=== PATIENT | male | born 1930 | race Caucasian/White ===

== ENCOUNTER 2017-01-04 08:03 | Inpatient (IN) ==
[2017-01-04] MEDS ORDERED: VANCOMYCIN INJ 1,000 MG in SODIUM CHLORIDE 0.9% 250 ML IV STA (08:54)
--- NOTE | 2017-01-04 09:09 | DUMMY REPORT TO COMPLETE ORDER ---
See report scanned to EMR
[2017-01-04] MEDS ORDERED: VANCOMYCIN 1,000 MG VIAL ONE (09:10)
[2017-01-04] MEDS ORDERED: ACETAMINOPHEN 325 MG TABLET PO PRN ×2 (09:31)
[2017-01-04] MEDS ORDERED: ONDANSETRON 4 MG/2 ML VIAL IV PRN ×2 (09:31→14:57)
[2017-01-04] MEDS ORDERED: DOCUSATE SODIUM 100 MG CAPSULE PO PRN (09:31)
[2017-01-04] MEDS ORDERED: diphenhydrAMINE CAP 25 MG CAPSULE PO PRN (09:31)
[2017-01-04] MEDS ORDERED: guaiFENesin/DM ER 600-30 MG TABLET PO PRN (09:31)
[2017-01-04] MEDS ORDERED: DIAZEPAM 5 MG TABLET PO PRN (09:34)
[2017-01-04 09:43] LABS: Lymphocytes,Synovial Fluid 8 %; Neutrophils,Synovial Fluid 86 %
--- NOTE | 2017-01-04 09:44 | XRay Report ---
Portable chest Indication: Preoperative study Comparison: October 04, 2015 Findings: Cardiomediastinal contours are stable with sternotomy wires and midline. Chronic stranding densities within the left lung base, fibrosis versus atelectasis. No acute osseous abnormalities. Visualized upper abdomen demonstrates no acute pathology. Impression: No acute cardiopulmonary findings PROCEDURE INTERPRETED AT [facility] DEPARTMENT OF RADIOLOGY Final Report Signed by: Blaine Flores MD
--- NOTE | 2017-01-04 09:46 | Hospitalist History & Physical ---
<Alexia Rosen - Last Filed: 01/04/17 09:41> Assessment and Plan - Time spent with patient Time spent with patient: Greater than 30 minutes (1) CAD status post CABG Status: Acute Assessment and plan: 86-year-old white male with history of hypertension, CAD status post CABG, history of bleeding not on anticoagulation, arthritis, and hypothyroidism admitted by the hospitalist service with a left septic knee joint. Patient will be started on vancomycin at 15 mg/kg, pain and nausea control. Will consult Dr. Groves from orthopedics for evaluation. Will hold patient n.p.o. just in case OR is needed. Patient's home medicines have already been reconciled and restarted. Dr. Becker will see and examine patient and further recommendations to follow. Current Visit: Yes (2) Septic arthritis of knee, left Status: Acute Current Visit: Yes (3) Leukocytosis Status: Acute Current Visit: No (4) Hypertension Status: Acute Current Visit: No (5) Hypothyroidism Status: Acute Current Visit: No History of Present Illness Chief complaint: Left knee pain History of present illness: Mr. Alvarez is a 86 year old white male with history of hypertension, CAD status post CABG, right knee replacement, osteoarthritis, hypothyroidism, history of GI bleed presenting to the ED from [facility] with left knee pain and fever. Patient states when he woke up yesterday his knee was hurting. He is gotten to the point where he cannot walk on it and cannot bend it or straighten it. He states he ran a fever at [facility] this morning. Patient states he has not injured it that he knows and he has never had surgery on that knee. He is afebrile vital signs stable. Labs from [facility] show elevated white blood cell count of 16.4, H&H stable at 14/43, blood cultures are pending, BMP with creatinine of 1.3 and electrolytes normal. C-reactive protein elevated at 13.3, lactic acid 1.2, PT and INR okay, x-ray from [facility] has been loaded in the system but is waiting on radiology to read. Upon exam patient is awake and alert complaining of left knee pain. It is mildly warm to the touch with no cellulitis, edematous and tight to palpation. He does have decreased range of motion. Dr. Saini from the ED has already done a joint aspiration and he states the fluid was turbid. Awaiting on results of this at this time. After discussion with Dr. Saini the ED physician and Dr. Becker the admitting hospitalist, it was agreed patient will be admitted for further evaluation and treatment. Patient's medicines have been reconciled and he is a full code. Home Medications Medication Instructions Recorded Confirmed Type Brimonidine 0.15% Oph Soln 1 drops LEFT EYE BID 09/05/14 01/04/17 History [Alphagan P 0.15% Oph Soln] Esomeprazole Magnesium 40 mg PO DAILY 09/05/14 01/04/17 History [Esomeprazole] Fenofibric Acid (Choline) 45 mg PO DAILY 09/05/14 01/04/17 History [Fenofibric Acid] Fluorometholone 0.1% Oph Susp [FML 1 drop BOTH EYES DAILY 09/05/14 01/04/17 History 0.1% Oph Susp] Levothyroxine Tab [Synthroid Tab] 112 mcg PO DAILY@0700 09/05/14 01/04/17 History NIFEdipine XL TAB [Procardia Xl] 30 mg PO BID 05/16/15 01/04/17 History Aspirin [Ecotrin] 325 mg PO BEDTIME 08/10/15 01/04/17 History Hydrocodone/Acetaminophen 1 each PO BID PRN 08/10/15 01/04/17 History [Hydrocodon-Acetaminophen 5-325] Diazepam Tab [Valium Tab] 5 mg PO BEDTIME PRN 10/04/15 01/04/17 History Ranitidine Tab [Zantac Tab] 150 mg PO BEDTIME 10/04/15 01/04/17 History Allergies Allergy/AdvReac Type Severity Reaction Status Date / Time No Known Allergies Allergy Verified 09/12/14 06:10 Medical,Surgical,& Family Hx - Medical History Cardio: History of: Hypertension, [place] (1999), PVD (dvt) Neurology: History of: TIA No history of: Seizures HEENT: History of: Eye Problem (cornea transplant two times), Dental Problems ( FULL MOUTH EXTRACTION) Endocrine: History of: Thyroid Disorder (GRAVES DISEASE RADIOACTIVE) Rheumatology: History of;: Rheumatological Problems Respiratory: History of: Respiratory Problems (REMOVAL LARYNX TUMOR CANCER) Genitourinary: History of: Prostate Problems (CANCER) Gastrointestinal: History of: Diverticulitis/ Diverticulosis, GERD Musculoskeletal: History of: 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), Degenerative Disk Disease, Musculoskeletal Problems Hematology: History of: 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) - Surgical History Cardiac Surgeries: Sugical HX of: Femoral-Popliteal Bypass Graft (triple bypass 2012), Cardiac Catheterization (STENT CABG DR ROSALES), Cardiac Surgery (CABG VEIN STRIPPING) HEENT Surgeries: Surgical HX of: Eye Surgery (CATARCTS CORNEA TRANSPLNT X2), Tonsilectomy & Adenoidectomy Abdominal Surgeries: Surgical HX of: Appendectomy, Cholecystectomy, Colonoscopy , EGD, Hernia Repair (X5) Reproductive Surgeries: Surgical HX of;: Breast Surgery (right breast biopsy..mass removal), Prostate Surgery (RDIATION 40 RXS) Orthopedic Surgeries: Surgical HX of;: Orthopedic Surgery (LAMINECTOMY KNEE SCOPE X4 SEPTOPLSTY), Total Knee Replacement - Family History Family History: Reports;: Family Cancer (BROTHER), Family Heart Disease (BROTHER ) - Social History Smoking Status: Former smoker Frequency of Alcohol Use: None Type of Drug Use: None Functional capacity: independent ambulation 12 point system: reviewed and no additional remarkable complaints except as stated Exam - Constitutional Vitals: Period Temp Pulse Resp BP Sys/Smith Pulse Ox Last 24 Hr 97.8 F-97.8 F 75-75 18-18 118-118/56-56 94 Exam: Constitutional System: No distress. No tremulousness. Head: Normocephalic, atraumatic. Ears, Nose and Throat System: No evidence of Otitis or Mastoiditis. No epistaxis or discharge Eyes System: Pupils equal, round, and reactive. Extraocular muscles intact. Neck: Supple, without adenopathy, No jugular venous distention. No thyromegaly, neck mass, or prior surgery apparent. Respiratory System: Chest clear to auscultation. Cardiovascular System: Heart with regular rate and rhythm. No murmur. GI System: Abdomen soft, nontender. Normo active bowel sounds present. Musculoskeletal System: limbs with no pedal edema. Full distal pulses. Right knee is warm and edematous, tight and tender to palpation with decreased range of motion Neurological System: No discernable sensory deficit. No aphasia Psychiatric System: Conversation is rational Results - Labs Lab Results: I have reviewed the past 24 hour labs Labs: CBC from [facility] show WBC 16.4, H&H 14/43.8, platelets 350, blood cultures pending. BMP with glucose 103, creatinine 1.3, sodium 139, potassium 3.9, C-reactive protein 13.3, lactic acid 1.2, PT 11.4, INR 1.07 - Diagnostic Findings Procedure: Chest x-ray: pending, X-ray: pending (Left knee) Quality Measures - VTE Contraindication to Pharmacological VTE Prophylaxis: High Risk of Bleeding <Shahzad Becker - Last Filed: 01/04/17 09:54> History of Present Illness History of present illness: Mr. Alvarez is a 86 year old male who is being admitted to the hospital with left knee septic arthritis. I have interviewed and examined the patient and reviewed all available laboratory and radiographic test results. I agree with the assessment and plans of nurse practitioner MARLEE Palumbo. The patient is being admitted to the hospital and begun on intravenous vancomycin. Orthopedics and infectious diseases have been consulted. Exam - Constitutional Vitals: Period Temp Pulse Resp BP Sys/Smith Pulse Ox Last 24 Hr 97.8 F-98.9 F 73-75 18-18 118-144/56-61 94-96
[2017-01-04 09:51] LABS: Cholesterol Crystals None Seen /LPF
--- NOTE | 2017-01-04 10:07 | Emergency Department Note ---
Cyrus Henao Brittany, am scribing for, and in the presence of, Sterling Saini MD 08:27. Parveen Henao Doug C, MD, personally performed the services described in this documentation, ascribed by Diane Bridges in my presence, and it is both accurate and complete . Arrival - Arrival Chief Complaint: Extremity Problem ED Nursing Triage Note: pt woke up yesterday with lt knee pain. +swelling and redness Mode of Arrival: Stretcher Limitations: No Limitations Source: Patient, RN Notes Reviewed Time Seen by Provider: 01/04/17 08:11 - History of Present Illness HPI Narrative: Patient 86-year-old white male presents emergency room for evaluation possible septic arthritis. Patient developed increased pain swelling and tenderness beginning yesterday. States the left knee feels hot to the touch reminiscent of prior septic joint disease head. He was seen at [facility] and was found to have an elevated white blood count. The patient left knee was tapped when he arrived here in the emergency room and he had very turbid fluid. He does not have any nausea, vomiting or any respiratory symptoms. Onset (ago): day(s) (1) Consistency: constant Allergies/Adverse Reactions: Allergies Allergy/AdvReac Type Severity Reaction Status Date / Time No Known Allergies Allergy Verified 09/12/14 06:10 Home Medications: Home Medications Medication Instructions Recorded Confirmed Type Brimonidine 0.15% Oph Soln 1 drops LEFT EYE BID 09/05/14 01/04/17 History [Alphagan P 0.15% Oph Soln] Esomeprazole Magnesium 40 mg PO DAILY 09/05/14 01/04/17 History [Esomeprazole] Fenofibric Acid (Choline) 45 mg PO DAILY 09/05/14 01/04/17 History [Fenofibric Acid] Fluorometholone 0.1% Oph Susp [FML 1 drop BOTH EYES DAILY 09/05/14 01/04/17 History 0.1% Oph Susp] Levothyroxine Tab [Synthroid Tab] 112 mcg PO DAILY@0700 09/05/14 01/04/17 History NIFEdipine XL TAB [Procardia Xl] 30 mg PO BID 05/16/15 01/04/17 History Aspirin [Ecotrin] 325 mg PO BEDTIME 08/10/15 01/04/17 History Hydrocodone/Acetaminophen 1 each PO BID PRN 08/10/15 01/04/17 History [Hydrocodon-Acetaminophen 5-325] Diazepam Tab [Valium Tab] 5 mg PO BEDTIME PRN 10/04/15 01/04/17 History Ranitidine Tab [Zantac Tab] 150 mg PO BEDTIME 10/04/15 01/04/17 History Review of System - Review of System 12 point system: reviewed and no additional remarkable complaints except as stated - Review of System Constitutional: Present: chills, fever Eyes: Absent: vision change Head/Ears/Nose/Throat: Absent: nasal drainage, sore throat Respiratory: Absent: respiratory distress Cardiovascular: Absent: chest pain Gastrointestinal: Present: nausea. Absent: abdominal pain, diarrhea, constipation, melena, hematochezia Genitourinary male: Absent: urgency, dysuria, frequency Musculoskeletal: Present: joint swelling (left knee), leg pain (left knee). Absent: arm pain, back pain, neck pain Skin: Absent: rash Neurological: Absent: headache Psychiatric: Absent: anxiety, depression Hematological/Lymphatic: Absent: easy bleeding, easy bruising Medical,Surgical,& Family Hx - Medical History Cardio: History of: Hypertension, [place] (1999), PVD (dvt) Neurology: History of: TIA No history of: Seizures HEENT: History of: Eye Problem (cornea transplant two times), Dental Problems ( FULL MOUTH EXTRACTION) Endocrine: History of: Thyroid Disorder (GRAVES DISEASE RADIOACTIVE) Rheumatology: History of;: Rheumatological Problems Respiratory: History of: Respiratory Problems (REMOVAL LARYNX TUMOR CANCER) Genitourinary: History of: Prostate Problems (CANCER) Gastrointestinal: History of: Diverticulitis/ Diverticulosis, GERD Musculoskeletal: History of: 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), Degenerative Disk Disease, Musculoskeletal Problems Hematology: History of: 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) - Surgical History Cardiac Surgeries: Sugical HX of: Femoral-Popliteal Bypass Graft (triple bypass 2012), Cardiac Catheterization (STENT CABG DR ROSALES), Cardiac Surgery (CABG VEIN STRIPPING) HEENT Surgeries: Surgical HX of: Eye Surgery (CATARCTS CORNEA TRANSPLNT X2), Tonsilectomy & Adenoidectomy Abdominal Surgeries: Surgical HX of: Appendectomy, Cholecystectomy, Colonoscopy , EGD, Hernia Repair (X5) Reproductive Surgeries: Surgical HX of;: Breast Surgery (right breast biopsy..mass removal), Prostate Surgery (RDIATION 40 RXS) Orthopedic Surgeries: Surgical HX of;: Orthopedic Surgery (LAMINECTOMY KNEE SCOPE X4 SEPTOPLSTY), Total Knee Replacement - Family History Family History: Reports;: Family Cancer (BROTHER), Family Heart Disease (BROTHER ) - Social History Smoking Status: Former smoker Frequency of Alcohol Use: None Type of Drug Use: None Exam Vital Signs: Vital Signs Temperature 98.9 F 01/04/17 09:51 Pulse Rate 73 01/04/17 09:51 Respiratory Rate 18 01/04/17 09:51 Blood Pressure 144/61 01/04/17 09:51 O2 Sat by Pulse Oximetry 96 01/04/17 09:51 - General General appearance: alert, in no apparent distress - Head Head exam: Present: atraumatic, normocephalic, normal inspection - Eye Eye exam: Present: normal appearance, PERRL, EOMI - ENT ENT exam: Present: normal exam, normal oropharynx - Neck Neck exam: Present: normal inspection, full ROM, trachea midline - Chest Chest inspection: Present: normal inspection, symmetric chest wall rise - Respiratory Respiratory exam: Present: normal lung sounds bilaterally. Absent: respiratory distress - Cardiovascular Cardiovascular exam: Present: regular rate, normal rhythm, normal heart sounds. Absent: murmur, rubs, gallop - Abdominal Exam Abdominal exam: Present: soft, normal bowel sounds. Absent: tenderness - Extremities Exam Extremities exam: Present: tenderness (left knee). Absent: normal inspection ( swollen left knee, aspiration of synovial fluid with the consistency of honey) - Back Exam Back exam: Present: normal inspection - Neurological Exam Neurological exam: Present: alert, oriented X3, CN II-XII intact. Absent: motor sensory deficit - Psychiatric Psychiatric exam: Present: normal affect, normal mood - Skin Skin exam: Present: warm, dry Course Course Narrative: Patient's clinical presentation, laboratory and radiograph findings were discussed with Alexia who is covering for the hospitalist service and Dr. Groves who is covering orthopedic service. Patient be admitted to the hospitalist service and Dr. Groves will see in consultation. Procedures - Joint Aspiration/Injection Joint Aspiration/Injection 1 Consent Obtained: verbal consent Time Out Performed: Yes Side of body: left Joint Aspirated: knee Ultrasound Guidance: No Skin Prep: Povidone-Iodine1% Local Anesthetic: lidocaine 1% Amount of anesthesia used (mL): 1 Needle Size Used: 18G Fluid Obtained: turbid Total Fluid Obtained (mls): 60 Patient Tolerated Procedure: well Complications: none Results - Labs Lab Results: I have reviewed the patients labs Labs: Laboratory Tests 01/04/17 08:25 Synovial WBC 38271 Synovial RBC [address] 100 Synovial Neutrophils 86 Synovial Lymphocytes 8 Synovial Monocytes 6 - EKG EKG results: interpreted by ERMD, sinus rhythm (72 bpm), no acute changes - Diagnostic Findings Procedure: Chest x-ray: report reviewed by me (No acute cardiopulmonary findings.) Disposition Clinical Impression: Septic arthritis of knee Case discussed with: patient Disposition: Still a Patient Condition: Stable Time of Disposition: 10:07
[2017-01-04 10:16] LABS: Glucose,Synovial Fluid < 1 MG/DL; Uric Acid,Synovial Fluid 7.6 MG/DL
[2017-01-04] MEDS: BRIMONIDINE 0.15% OPH SOLN 1 DROP/DROPS BOTTLE LEFT EYE SCH ×2 (10:57→20:48)
[2017-01-04] MEDS: FENOFIBRATE 48 MG TABLET PO SCH (10:57)
[2017-01-04] MEDS: FLUOROMETHOLONE 0.1% OPH SUSP 5 ML BOTTLE BOTH EYES SCH (10:58)
[2017-01-04] MEDS: MORPHINE 2 MG/1 ML SYRINGE IV PRN ×2 (10:58→20:52)
[2017-01-04] MEDS: PANTOPRAZOLE 40 MG TABLET PO SCH (10:58)
[2017-01-04] MEDS ORDERED: BACITRACIN 50,000 UNIT VIAL ONE (12:16)
--- NOTE | 2017-01-04 13:09 | Orthopedic Consult Note ---
History of Present Illness Chief complaint: Left knee septic arthritis History of present illness: Mr. Alvarez is a 86 year old male Home Medications Medication Instructions Recorded Confirmed Type Brimonidine 0.15% Oph Soln 1 drops LEFT EYE BID 09/05/14 01/04/17 History [Alphagan P 0.15% Oph Soln] Esomeprazole Magnesium 40 mg PO DAILY 09/05/14 01/04/17 History [Esomeprazole] Fenofibric Acid (Choline) 45 mg PO DAILY 09/05/14 01/04/17 History [Fenofibric Acid] Fluorometholone 0.1% Oph Susp [FML 1 drop BOTH EYES DAILY 09/05/14 01/04/17 History 0.1% Oph Susp] Levothyroxine Tab [Synthroid Tab] 112 mcg PO DAILY@0700 09/05/14 01/04/17 History NIFEdipine XL TAB [Procardia Xl] 30 mg PO BID 05/16/15 01/04/17 History Aspirin [Ecotrin] 325 mg PO BEDTIME 08/10/15 01/04/17 History Hydrocodone/Acetaminophen 1 each PO BID PRN 08/10/15 01/04/17 History [Hydrocodon-Acetaminophen 5-325] Diazepam Tab [Valium Tab] 5 mg PO BEDTIME PRN 10/04/15 01/04/17 History Ranitidine Tab [Zantac Tab] 150 mg PO BEDTIME 10/04/15 01/04/17 History Rosuvastatin [Crestor] 20 mg PO BEDTIME 01/04/17 01/04/17 History Allergies Allergy/AdvReac Type Severity Reaction Status Date / Time No Known Allergies Allergy Verified 09/12/14 06:10 Medical,Surgical,& Family Hx - Medical History Cardio: History of: Hypertension, [place] (2000), PVD (dvt) Neurology: History of: TIA No history of: Seizures HEENT: History of: Eye Problem (cornea transplant two times), Dental Problems ( FULL MOUTH EXTRACTION) Endocrine: History of: Thyroid Disorder (GRAVES DISEASE RADIOACTIVE) Rheumatology: History of;: Rheumatological Problems Respiratory: History of: Respiratory Problems (REMOVAL LARYNX TUMOR CANCER) Genitourinary: History of: Prostate Problems (CANCER) Gastrointestinal: History of: Diverticulitis/ Diverticulosis, GERD, GI Problems (HIATAL HERNIA) Musculoskeletal: History of: 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), Degenerative Disk Disease, Musculoskeletal Problems Hematology: History of: 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) - Surgical History Cardiac Surgeries: Sugical HX of: Femoral-Popliteal Bypass Graft (triple bypass 2013), Cardiac Catheterization (STENT CABG DR ROSALES), Cardiac Surgery (CABG VEIN STRIPPING) HEENT Surgeries: Surgical HX of: Eye Surgery (CATARCTS CORNEA TRANSPLNT X2), Tonsilectomy & Adenoidectomy Abdominal Surgeries: Surgical HX of: Appendectomy, Cholecystectomy, Colonoscopy , EGD, Hernia Repair (X5) Reproductive Surgeries: Surgical HX of;: Breast Surgery (right breast biopsy..mass removal), Prostate Surgery (RDIATION 40 RXS) Orthopedic Surgeries: Surgical HX of;: Orthopedic Surgery (LAMINECTOMY KNEE SCOPE X4 SEPTOPLSTY), Total Knee Replacement - Family History Family History: Reports;: Family Cancer (BROTHER), Family Heart Disease (BROTHER ) - Social History Smoking Status: Former smoker Frequency of Alcohol Use: None Type of Drug Use: None Exam - Constitutional Vitals: Period Temp Pulse Resp BP Sys/Smith Pulse Ox Last 24 Hr 97.0 F-98.9 F 65-75 18-20 118-146/51-73 94-96 - Expanded Left Lower Knee exam: Present: swelling, tenderness (Left knee with increased warmth swelling pain on range of motion. Laboratory studies showed he had cloudy fluid obtained in aspiration of the knee from the emergency room by the emergency room physician. The laboratory results from this showed no crystals he had elevated white blood cell count in the joint fluid. No instability in the knee noted. Pain in the midportions of motion as well as extremes of motion.) Assessment and Plan (1) Septic arthritis of knee Status: Acute Current Visit: Yes
--- NOTE | 2017-01-04 13:16 | Event Note ---
Patient is an 86-year-old male with 2 day history of left knee swelling. He has increased warmth and effusion left knee. Tender to palpation in the left knee. Pain on attempted motion left knee. No instability noted. Moves his toes has sensation to touch has palpable pulses left lower extremity. Aspiration performed in the emergency room by ER physician shows elevated white count in the knee with cloudy fluid. No crystal seen. Impression is septic arthritis left knee. Plan arthroscopic irrigation debridement left knee.
[2017-01-04] MEDS ORDERED: BUPIVACAINE 0.5% /EPI 10 ML VIAL ONE (13:26)
--- NOTE | 2017-01-04 14:29 | Operative Note ---
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 This time the leg was in the arthroscopic leg hardin with a tourniquet placed over cast padding on the proximal thigh. Incision was made with a #11 blade at the inferior lateral aspect of the patella at the lateral aspect of the patellar tendon. Blunt trocar and cannula for the arthroscope was introduced into the knee through the inferolateral portal cloudy fluid was obtained and cultures were obtained from this fluid. At this time the arthroscope was introduced into the knee got increased accumulation was noted there is a large amount of synovitis in the knee cloudy fluid. 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 There is a tear of the medial meniscus with maceration of the lateral meniscus. Medial portal was made at the inferior border of the patella on the lateral border of the patellar tendon. This made with a #11 blade and the blunt trocar introduced into the knee. Probe was placed and confirming the chondromalacia and the meniscus tears. A slight up by up turned biter was placed in a debrided the medial meniscus tear shaver then used to smooth age. Shaver was then used to smooth the edge of the lateral meniscus. We got a crystal accumulation was debrided as well. At this time I appear lateral portal was made. In the knee was irrigated out with 9 L of normal saline 3 L which have a stress noted. Inspection of the pathology report is closed for nylon suture with a single medium Hemovac drain placed superior lateral portal. Sterile occlusive dressing was placed and patient was awakened taken to recovery room. Implants: None Anesthesia: FIDENCIOA Surgeon / Physician: Robin Groves Estimated blood loss: minimal Condition: stable Disposition: PACU Discharge Plan - Discharge Medications No Action Brimonidine 0.15% Oph Soln [Alphagan P 0.15% Oph Soln] 1 drops LEFT EYE BID Esomeprazole Magnesium [Esomeprazole] 40 mg PO DAILY Fenofibric Acid (Choline) [Fenofibric Acid] 45 mg PO DAILY Fluorometholone 0.1% Oph Susp [FML 0.1% Oph Susp] 1 drop BOTH EYES DAILY Levothyroxine Tab [Synthroid Tab] 112 mcg PO DAILY@0700 NIFEdipine XL TAB [Procardia Xl] 30 mg PO BID Aspirin [Ecotrin] 325 mg PO BEDTIME Hydrocodone/Acetaminophen [Hydrocodon-Acetaminophen 5-325] 1 each PO BID PRN PRN Reason: Pain Diazepam Tab [Valium Tab] 5 mg PO BEDTIME PRN PRN Reason: Insomnia Ranitidine Tab [Zantac Tab] 150 mg PO BEDTIME Rosuvastatin [Crestor] 20 mg PO BEDTIME - Follow Up or Referral - Forms/Instructions
--- NOTE | 2017-01-04 14:35 | Anesthesia Post-Op ---
Anesthesia Post OP - Post Ansesthetic Evaluation Patient seen in post op: Yes Resp: within normal limits CV: within normal limits Mental: within normal limits Temp: within normal limits [id number]: within normal limits Nausea and Vomiting: within normal limits Pain: within normal limits
[2017-01-04] MEDS ORDERED: fentaNYL 100 MCG/2 ML VIAL ONE (14:37)
[2017-01-04] MEDS ORDERED: SEVOFLURANE 1 UNIT/15 MINUTE INH ONE (14:38)
[2017-01-04] MEDS ORDERED: ONDANSETRON 4 MG/2 ML VIAL ONE ×2 (14:38→14:52)
[2017-01-04] MEDS ORDERED: GLYCOPYRROLATE 0.4 MG/2 ML VIAL ONE (14:38)
[2017-01-04] MEDS ORDERED: PROPOFOL 200 MG/20 ML VIAL IV ONE (14:38)
[2017-01-04] MEDS ORDERED: ETOMIDATE 20 MG/10 ML VIAL IV ONE (14:38)
[2017-01-04] MEDS ORDERED: ROCURONIUM 100 MG/10 ML VIAL IV ONE (14:39)
[2017-01-04] MEDS ORDERED: NEOSTIGMINE 10 MG/10 ML VIAL ONE (14:39)
[2017-01-04] MEDS ORDERED: HYDROmorphone 2 MG/1 ML VIAL ONE (14:52)
[2017-01-04] MEDS: HYDROmorphone 2 MG/1 ML VIAL IV PRN ×2 (14:55→15:00)
[2017-01-04] MEDS ORDERED: LACTATED RINGERS 1,000 ML IV SCH (15:00)
[2017-01-04] MEDS: SODIUM CHLORIDE 0.9% 1,000 ML IV SCH ×3 (15:10→22:47)
[2017-01-04] MEDS: ASPIRIN EC 325 MG TABLET PO SCH (20:47)
[2017-01-05] MEDS: MORPHINE 2 MG/1 ML SYRINGE IV PRN ×4 (01:49→12:13)
[2017-01-05] MEDS: SODIUM CHLORIDE 0.9% 1,000 ML IV SCH ×3 (04:10→20:56)
[2017-01-05 05:05] LABS: Basophils % 0.2 % (0.0-0.8); Eosinophils # 0.2 10*3/uL (0.0-0.87); Eosinophils % 1.4 % (0.00-10.9); Hematocrit 32.3 VOL% (42.0-52.0); Hemoglobin 10.7 GM/DL (14.0-18.0); Immature Granulocytes % 0.4 %; Immature Granulocytes Absolute 0.05 #; Lymphocytes # 0.5 10*3/uL (1.4-4.0); Lymphocytes % 3.9 % (21.2-54.2); Mean Corpuscular HGB Conc 33.1 GM/DL (32-36); Mean Corpuscular Hemoglobin 29 PG (27-34); Mean Corpuscular Volume 88.7 FL (87-102); Mean Platelet Volume 10.5 FL (9.6-12.0); Monocytes # 0.8 10*3/uL (0.11-0.8); Monocytes % 6.8 % (1.7-12.7); Neutrophils # 10.7 10*3/uL (1.4-7.4); Neutrophils % 87.3 % (38.7-73.9); Platelet Count 226 T/CUMM (130-400); Red Blood Count 3.64 MC/CUMM (3.8-5.5); Red Cell Distribution Width 13.8 % (9.3-17.3); White Blood Count 12.2 T/CUMM (4-12)
[2017-01-05 05:33] LABS: Hypochromasia 1+; Lymphocytes 6 % (20-55); Platelet Estimate Adequate; Segmented Neutrophils 85 % (50-85); Total Cells Counted 100
[2017-01-05 05:38] LABS: Calcium 7.8 MG/DL (8.5-10.1); Magnesium 1.9 MG/DL (1.8-2.4); Osmolality,Calculated 279.4 MOS/KG (273-304)
[2017-01-05 05:39] LABS: Risk Ratio 1.87
[2017-01-05] MEDS: VANCOMYCIN INJ 1,250 MG in SODIUM CHLORIDE 0.9% 250 ML IV SCH (06:30)
[2017-01-05] MEDS: LEVOTHYROXINE 112 MCG TABLET PO SCH (06:34)
--- NOTE | 2017-01-05 08:15 | Orthopedic Progress Note ---
Assessment and Plan (1) Septic arthritis of knee Status: Acute Current Visit: Yes Exam - Constitutional Vitals: Period Temp Pulse Resp BP Sys/Smith Pulse Ox Last 24 Hr 97.0 F-99.6 F 52-84 16-20 102-158/42-79 95-100 Exam: Mr. Alvarez is afebrile today. Drain DC'd from left knee. Complaining of some pain in the left knee. Moves his toes has sensation touch has a palpable dorsalis pedis pulse. Cultures are pending. Continue antibiotics. Plan to DC after 48 hours of IV antibiotic on appropriate p.o. antibiotics will change dressing tomorrow. Results - Labs CBC & BMP: 01/05/17 04:13 01/05/17 04:13 Quality Measures - VTE Contraindication to Pharmacological VTE Prophylaxis: High Risk of Bleeding
[2017-01-05] MEDS: PANTOPRAZOLE 40 MG TABLET PO SCH (08:45)
[2017-01-05] MEDS: BRIMONIDINE 0.15% OPH SOLN 1 DROP/DROPS BOTTLE LEFT EYE SCH ×2 (08:46→20:58)
[2017-01-05] MEDS: FENOFIBRATE 48 MG TABLET PO SCH (08:49)
[2017-01-05] MEDS: FLUOROMETHOLONE 0.1% OPH SUSP 5 ML BOTTLE BOTH EYES SCH (08:49)
--- NOTE | 2017-01-05 10:34 | Hospitalist Progress Note ---
Assessment and Plan (1) Septic arthritis of knee Status: Acute Current Visit: Yes Qualifiers: Septic arthritis organism: due to unspecified organism Hospitalist: Subjective Interval history: Patient is day 1 status post arthroscopy of the left knee for left knee septic arthritis. He is presently being treated with intravenous vancomycin. I have consulted physical therapy and case management for a swing bed placement post discharge. Exam - Constitutional Vitals: Period Temp Pulse Resp BP Sys/Smith Pulse Ox Last 24 Hr 97.2 F-99.6 F 52-84 16-20 102-158/42-79 95-100 General appearance: no acute distress - Head Head exam: Present: normal inspection - Neck Neck exam: Present: normal inspection - Respiratory Respiratory exam: Present: clear to auscultation bilaterally - Cardiovascular Cardiovascular exam: Present: regular rate and rhythm - GI/Abdominal GI/Abdominal exam: Present: normal bowel sounds, soft, other (Nontender with no palpable masses or hepatosplenomegaly.) - Extremities Exam Extremities exam: Present: other (Bandage of the left knee.) - Skin Skin exam: Present: normal color, warm, intact Results - Labs CBC & BMP: 01/05/17 04:13 01/05/17 04:13 Quality Measures - VTE Contraindication to Pharmacological VTE Prophylaxis: High Risk of Bleeding
[2017-01-05] MEDS ORDERED: TUBERCULIN SKIN TEST 0.1 ML SYRINGE INTRADERM ONE (14:47)
--- NOTE | 2017-01-05 14:49 | Case Mgmt Physician Query Form ---
TB Signs and Symptoms Screening ([place]) INSTRUCTIONS: To be completed annually on residents/staff with a significant Tuberculin Skin Test (TST) upon admission/hire or a prior significant TST. To be completed on all staff at hire. Please respond to each listed symptom with an (X) in either the "YES" or "NO" box. Do you currently have any of the following symptoms: YES NO ( ) ( x) A cough If yes, is it: ( ) Productive ( ) Non- productive ( ) ( x) Hemoptysis (spitting up blood) ( ) (x ) Chest pains ( ) (x ) Weight Loss ( ) (x ) Fever ( ) (x ) Night Sweats ( ) (x ) Weakness ( ) (x ) Loss of Appetite ( ) (x ) Difficulty Breathing If you answered YES" to any of the above questions, how long have symptoms been present? Comments: If you have any questions, please contact me. Thank you, Mariela Vuong RN, Office : [phone] Email : [email or web address]
[2017-01-05] MEDS: ASPIRIN EC 325 MG TABLET PO SCH (20:56)
[2017-01-06] MEDS: SODIUM CHLORIDE 0.9% 1,000 ML IV SCH ×2 (04:44→11:59)
[2017-01-06] MEDS: VANCOMYCIN INJ 1,250 MG in SODIUM CHLORIDE 0.9% 250 ML IV SCH (06:12)
[2017-01-06] MEDS: MORPHINE 2 MG/1 ML SYRINGE IV PRN (06:12)
[2017-01-06] MEDS: LEVOTHYROXINE 112 MCG TABLET PO SCH (06:13)
[2017-01-06] MEDS: PANTOPRAZOLE 40 MG TABLET PO SCH (08:24)
[2017-01-06] MEDS: FENOFIBRATE 48 MG TABLET PO SCH (08:24)
[2017-01-06] MEDS: FLUOROMETHOLONE 0.1% OPH SUSP 5 ML BOTTLE BOTH EYES SCH (08:27)
[2017-01-06] MEDS: BRIMONIDINE 0.15% OPH SOLN 1 DROP/DROPS BOTTLE LEFT EYE SCH (08:28)
--- NOTE | 2017-01-06 09:20 | Discharge Summary ---
Hospital Course - Hospital Course Hospital Course: History of present illness: Mr. Alvarez is a 86 year old white male with history of hypertension, CAD status post CABG, right knee replacement, osteoarthritis, hypothyroidism, history of GI bleed presenting to the ED from [facility] with left knee pain and fever. Patient states when he woke up yesterday his knee was hurting. He is gotten to the point where he cannot walk on it and cannot bend it or straighten it. He states he ran a fever at [facility] this morning. Patient states he has not injured it that he knows and he has never had surgery on that knee. He is afebrile vital signs stable. Labs from [facility] show elevated white blood cell count of 16.4, H&H stable at 14/43, blood cultures are pending, BMP with creatinine of 1.3 and electrolytes normal. C-reactive protein elevated at 13.3, lactic acid 1.2, PT and INR okay, x-ray from [facility] has been loaded in the system but is waiting on radiology to read. Upon exam patient is awake and alert complaining of left knee pain. It is mildly warm to the touch with no cellulitis, edematous and tight to palpation. He does have decreased range of motion. Dr. Saini from the ED has already done a joint aspiration and he states the fluid was turbid. Patient was seen in consultation by Dr. Robin Groves of orthopedic surgery. Dr. Groves performed arthroscopy of the left knee with evacuation of purulent drainage. Patient was treated with intravenous vancomycin. He was seen in consultation by physical therapy who was able to ambulate him prior to discharge. At the time of his discharge she was stable with no problems. Diagnosis - Discharge Diagnosis (1) Septic arthritis of knee Status: Acute Discharge Plan - Discharge Data Disposition: Disch To Home/Self Care Condition at Discharge: Stable Discharge Diet: advance to your usual diet Activity: resume usual activities as tolerated - Discharge Medications New Clindamycin Cap [Cleocin Cap] 300 mg PO Q8HR #21 capsule Continue Brimonidine 0.15% Oph Soln [Alphagan P 0.15% Oph Soln] 1 drops LEFT EYE BID Esomeprazole Magnesium [Esomeprazole] 40 mg PO DAILY Fenofibric Acid (Choline) [Fenofibric Acid] 45 mg PO DAILY Fluorometholone 0.1% Oph Susp [FML 0.1% Oph Susp] 1 drop BOTH EYES DAILY Levothyroxine Tab [Synthroid Tab] 112 mcg PO DAILY@0700 NIFEdipine XL TAB [Procardia Xl] 30 mg PO BID Aspirin [Ecotrin] 325 mg PO BEDTIME Hydrocodone/Acetaminophen [Hydrocodon-Acetaminophen 5-325] 1 each PO BID PRN PRN Reason: Pain Diazepam Tab [Valium Tab] 5 mg PO BEDTIME PRN PRN Reason: Insomnia Ranitidine Tab [Zantac Tab] 150 mg PO BEDTIME Rosuvastatin [Crestor] 20 mg PO BEDTIME prednisoLONE AC 1% OPH SUSP [Pred Forte] 1 drop LEFT EYE QID - Follow Up or Referral - Forms/Instructions Exam - Constitutional Vitals: Period Temp Pulse Resp BP Sys/Smith Pulse Ox Last 24 Hr 97.3 F-101.7 F 62-92 16-20 95-143/52-75 91-97 Discharge Results Procedures and tests throughout hospitalization: Pending Orders 01/04/17 10:54 Blood Culture Stat Labs on day of discharge: Preliminary micro results at discharge 01/04/17 10:54 Blood Culture - Preliminary Blood No growth at 1 day 01/04/17 10:54 Blood Culture - Preliminary Blood No growth at 1 day DS: Provider Date of admission: 01/04/17 09:07 Primary care physician: . No PCP Attending physician on admission: Shahzad Becker Consults: 01/04/17 09:31 Consult to Physician [CONS] Routine Comment: septic left knee Consulting Provider: Robin Groves When should Consulting Provider be notified: Now Consult Notification Comment: Alexia Rosen spoke with Dr. Groves, pt scheduled for surgery 01/05/17 10:30 Consult to Occupational Therapy [CONS] Routine Reason for Occupational Therapy: Evaluate and Treat Consult Comment: For Swing Bed Placement Consult to Physical Therapy [CONS] Routine Reason for Physical Therapy: Evaluate and Treat Consult Comment: For Swing Bed Placement 01/05/17 10:34 Consult to Case Mgmt/Social Srvs [CONS] Routine Reason for Case Mgmt/Social Srvs: Swingbed/SNF/Correction Consult to Physical Therapy [CONS] Routine Reason for Physical Therapy: Evaluate and Treat Discharging clinician: Shahzad Becker
--- NOTE | 2017-01-06 11:17 | Pathology Report from [facility] ---
[facility] – [place] ACCESSION # : [id number] PATIENT NAME : Mercedes Alvarez ORDERING DR : Robin Groves MD CLINICAL HX: LT septic knee POST-OP DX: Same SPECIMEN INFO: LT knee tissue GROSS DESCRIPTION: The specimen is received in formalin labeled with the patients name and consists of an aggregate of pink-white cartilaginous soft tissue measuring 3.9 x 4.0 cm. Envelope Sealing Machine Operator tissue submitted in one cassette. DIAGNOSIS FOR Mercedes ALVAREZ: Hyalinized fibrocartilage and synovium with areas of marked acute and chronic inflammation c/w septic joint. COLLECTED DATE: 01/05/2017 [facility] – [place], [place] REPORT DATE: 01/06/2017 ELECTRONICALLY SIGNED BY: Stevie Flores M.D. 01/06/2017 - 9:39:54 [facility] SYSTEMMilan
[2017-01-06 16:38] VITALS: BP 149/67
== END 2017-01-06 17:45 | disposition home health service (06) | DRG 489 ==
LOC: N.EDINP 09:07 → N.2E 10:19 → N.3E 15:10

== ENCOUNTER 2018-05-28 09:31 | Inpatient (IN) ==
[2018-05-28] MEDS ORDERED: ENOXAPARIN 80 MG/0.8 ML SYRINGE SUBCUT STA (10:18)
[2018-05-28] MEDS ORDERED: NITROGLYCERIN 2% OINT 1 INCH/GM PACK TOP STA (10:18)
[2018-05-28 10:20] LABS: Basophils % 0.3 % (0.0-0.8); Eosinophils # 0.5 10*3/uL (0.0-0.87); Eosinophils % 5.2 % (0.00-10.9); Hematocrit 38.5 VOL% (42.0-52.0); Hemoglobin 12.1 GM/DL (14.0-18.0); Immature Granulocytes % 0.3 %; Immature Granulocytes Absolute 0.03 #; Lymphocytes % 11.1 % (21.2-54.2); Mean Corpuscular HGB Conc 31.4 GM/DL (32-36); Mean Corpuscular Hemoglobin 29 PG (27-34); Mean Platelet Volume 10.1 FL (9.6-12.0); Monocytes # 0.9 10*3/uL (0.11-0.8); Monocytes % 9.8 % (1.7-12.7); Neutrophils # 6.4 10*3/uL (1.4-7.4); Neutrophils % 73.3 % (38.7-73.9); Platelet Count 303 T/CUMM (130-400); Red Blood Count 4.23 MC/CUMM (3.8-5.5); White Blood Count 8.7 T/CUMM (4-12)
[2018-05-28 10:25] LABS: INR 1.1; PT Patient Result 11.8 SECS
[2018-05-28 10:29] LABS: Calcium 8.6 MG/DL (8.5-10.1); Osmolality,Calculated 282.3 MOS/KG (273-304); Potassium 3.9 MMOL/L (3.5-5.1)
[2018-05-28] MEDS ORDERED: ACETAMINOPHEN 325 MG TABLET PO PRN (11:49)
[2018-05-28] MEDS ORDERED: BISACODYL 5 MG TABLET PO PRN (11:49)
[2018-05-28] MEDS ORDERED: MAGNESIUM SULF RIDER 4 GM in PREMIX 1 EACH IV PRN (11:49)
[2018-05-28] MEDS ORDERED: MAGNESIUM SULF RIDER 2 GM in PREMIX 1 EACH IV PRN (11:49)
[2018-05-28] MEDS ORDERED: DOCUSATE SODIUM 100 MG CAPSULE PO PRN (11:49)
[2018-05-28] MEDS ORDERED: ZALEPLON 5 MG CAPSULE PO PRN (11:49)
[2018-05-28] MEDS ORDERED: POTASSIUM CHLORIDE 20 MEQ TABLET PO PRN (11:49)
[2018-05-28] MEDS ORDERED: guaiFENesin/DM ER 600-30 MG TABLET PO PRN (11:49)
[2018-05-28] MEDS ORDERED: ENOXAPARIN 40 MG/0.4 ML SYRINGE SUBCUT SCH (12:00)
[2018-05-28] MEDS ORDERED: ISOSORBIDE MONONITRATE 30 MG TABLET PO SCH (12:00)
[2018-05-28] MEDS ORDERED: CLOPIDOGREL 300 MG TABLET PO STA (12:07)
[2018-05-28] MEDS ORDERED: amLODIPine 5 MG TABLET PO STA (12:09)
[2018-05-28] MEDS ORDERED: hydrALAZINE 20 MG/1 ML VIAL IV PRN (12:19)
[2018-05-28] MEDS ORDERED: CLOPIDOGREL 75 MG TABLET PO SCH (12:30)
[2018-05-28] MEDS ORDERED: hydrALAZINE 20 MG/1 ML VIAL IV ONE (13:41)
[2018-05-28] MEDS ORDERED: hydrALAZINE 20 MG/1 ML VIAL IM ONE (13:41)
[2018-05-28] MEDS: MORPHINE 4 MG/1 ML VIAL IV PRN (16:56)
[2018-05-28] MEDS: ONDANSETRON 4 MG/2 ML VIAL IV PRN ×2 (17:12→20:55)
[2018-05-28] MEDS: oxyCODONE/ACETAMINOPHEN 5-325 MG TABLET PO PRN (17:35)
[2018-05-28] MEDS ORDERED: amLODIPine 5 MG TABLET PO SCH (18:00)
[2018-05-28] MEDS: HYDROmorphone 2 MG/1 ML VIAL IV PRN (20:55)
[2018-05-28] MEDS: BRIMONIDINE 0.15% OPH SOLN 1 DROP/DROPS BOTTLE LEFT EYE SCH (20:57)
[2018-05-28] MEDS: CARVEDILOL 3.125 MG TABLET PO SCH (20:58)
[2018-05-28] MEDS: ROSUVASTATIN 20 MG TABLET PO SCH (20:58)
[2018-05-28] MEDS ORDERED: PANTOPRAZOLE 40 MG TABLET PO SCH (21:00)
[2018-05-28] MEDS ORDERED: ASPIRIN EC 325 MG TABLET PO SCH (21:00)
[2018-05-28] MEDS: prednisoLONE ACETATE 1% OPH SUSP 5 ML BOTTLE LEFT EYE SCH (21:03)
[2018-05-29 04:23] LABS: Basophils % 0.5 % (0.0-0.8); Eosinophils # 0.4 10*3/uL (0.0-0.87); Eosinophils % 4.3 % (0.00-10.9); Hematocrit 35.6 VOL% (42.0-52.0); Hemoglobin 11.1 GM/DL (14.0-18.0); Immature Granulocytes % 0.5 %; Immature Granulocytes Absolute 0.04 #; Lymphocytes # 1.1 10*3/uL (1.4-4.0); Lymphocytes % 12.8 % (21.2-54.2); Mean Corpuscular HGB Conc 31.2 GM/DL (32-36); Mean Corpuscular Hemoglobin 29 PG (27-34); Mean Platelet Volume 10.4 FL (9.6-12.0); Monocytes # 0.9 10*3/uL (0.11-0.8); Monocytes % 10.9 % (1.7-12.7); Platelet Count 284 T/CUMM (130-400); Red Blood Count 3.87 MC/CUMM (3.8-5.5); Red Cell Distribution Width 14.2 % (9.3-17.3); White Blood Count 8.5 T/CUMM (4-12)
[2018-05-29 04:58] LABS: Calcium 8.6 MG/DL (8.5-10.1); Osmolality,Calculated 276.7 MOS/KG (273-304); Potassium 4.2 MMOL/L (3.5-5.1); Risk Ratio 1.68; VLDL CHOLESTEROL 14.6 MG/DL
[2018-05-29] MEDS: LEVOTHYROXINE 88 MCG TABLET PO SCH (06:20)
[2018-05-29] MEDS: ONDANSETRON 4 MG/2 ML VIAL IV PRN (07:42)
[2018-05-29] MEDS: HYDROmorphone 2 MG/1 ML VIAL IV PRN ×2 (07:48→17:59)
[2018-05-29] MEDS ORDERED: amLODIPine 2.5 MG TABLET PO SCH (09:00)
[2018-05-29] MEDS: BRIMONIDINE 0.15% OPH SOLN 1 DROP/DROPS BOTTLE LEFT EYE SCH ×2 (09:16→21:54)
[2018-05-29] MEDS: amLODIPine 5 MG TABLET PO SCH (09:17)
[2018-05-29] MEDS: ASPIRIN EC 81 MG TABLET PO SCH (09:18)
[2018-05-29] MEDS: prednisoLONE ACETATE 1% OPH SUSP 5 ML BOTTLE LEFT EYE SCH ×2 (09:18→21:55)
[2018-05-29] MEDS: CARVEDILOL 3.125 MG TABLET PO SCH ×2 (09:18→21:28)
[2018-05-29] MEDS: ISOSORBIDE MONONITRATE 30 MG TABLET PO SCH (09:18)
[2018-05-29] MEDS: FENOFIBRATE 48 MG TABLET PO SCH (09:18)
[2018-05-29] MEDS ORDERED: SODIUM CHLORIDE 0.9% 250 ML IV ONE (11:16)
[2018-05-29] MEDS: SODIUM CHLORIDE 0.9% 1,000 ML IV SCH ×3 (11:49→21:55)
[2018-05-29] MEDS: oxyCODONE/ACETAMINOPHEN 5-325 MG TABLET PO PRN (14:42)
[2018-05-29] MEDS: ALUM/MAG/SIMETH/LIDO VISC 1:1 30 ML BOTTLE PO PRN (15:16)
[2018-05-29] MEDS: ALPRAZolam 0.25 MG TABLET PO PRN (18:29)
[2018-05-29] MEDS: PANTOPRAZOLE 40 MG TABLET PO SCH (21:55)
[2018-05-29] MEDS: ROSUVASTATIN 20 MG TABLET PO SCH (21:55)
[2018-05-30 04:38] LABS: Basophils % 0.2 % (0.0-0.8); Eosinophils # 0.5 10*3/uL (0.0-0.87); Eosinophils % 5.9 % (0.00-10.9); Hematocrit 34.7 VOL% (42.0-52.0); Immature Granulocytes % 0.3 %; Immature Granulocytes Absolute 0.03 #; Lymphocytes # 0.8 10*3/uL (1.4-4.0); Lymphocytes % 8.3 % (21.2-54.2); Mean Corpuscular HGB Conc 31.7 GM/DL (32-36); Mean Corpuscular Hemoglobin 29 PG (27-34); Mean Corpuscular Volume 90.8 FL (87-102); Mean Platelet Volume 10.5 FL (9.6-12.0); Monocytes # 0.8 10*3/uL (0.11-0.8); Monocytes % 8.3 % (1.7-12.7); Platelet Count 251 T/CUMM (130-400); Red Blood Count 3.82 MC/CUMM (3.8-5.5); Red Cell Distribution Width 14.1 % (9.3-17.3); White Blood Count 9.1 T/CUMM (4-12)
[2018-05-30 05:06] LABS: Calcium 8.5 MG/DL (8.5-10.1); Osmolality,Calculated 280.5 MOS/KG (273-304); Potassium 4.1 MMOL/L (3.5-5.1)
[2018-05-30] MEDS: HYDROmorphone 2 MG/1 ML VIAL IV PRN ×2 (05:57→20:15)
[2018-05-30] MEDS: ONDANSETRON 4 MG/2 ML VIAL IV PRN ×2 (05:57→20:58)
[2018-05-30] MEDS: LEVOTHYROXINE 88 MCG TABLET PO SCH (05:59)
[2018-05-30] MEDS: SODIUM CHLORIDE 0.9% 1,000 ML IV SCH ×2 (06:01→09:15)
[2018-05-30] MEDS: PANTOPRAZOLE 40 MG TABLET PO SCH ×2 (10:04→20:58)
[2018-05-30] MEDS: ASPIRIN EC 81 MG TABLET PO SCH (10:04)
[2018-05-30] MEDS: CARVEDILOL 3.125 MG TABLET PO SCH ×2 (10:04→22:22)
[2018-05-30] MEDS: FENOFIBRATE 48 MG TABLET PO SCH (10:04)
[2018-05-30] MEDS: amLODIPine 5 MG TABLET PO SCH (10:05)
[2018-05-30] MEDS: prednisoLONE ACETATE 1% OPH SUSP 5 ML BOTTLE LEFT EYE SCH ×2 (10:05→20:58)
[2018-05-30] MEDS: BRIMONIDINE 0.15% OPH SOLN 1 DROP/DROPS BOTTLE LEFT EYE SCH ×2 (10:05→20:58)
[2018-05-30] MEDS: ISOSORBIDE MONONITRATE 30 MG TABLET PO SCH (10:05)
[2018-05-30] MEDS: fentaNYL 12 MCG/HR PATCH TRANSDERM SCH (20:15)
[2018-05-30] MEDS: ROSUVASTATIN 20 MG TABLET PO SCH (20:58)
[2018-05-30] MEDS: ALPRAZolam 0.25 MG TABLET PO PRN (20:59)
[2018-05-30] MEDS: oxyCODONE/ACETAMINOPHEN 5-325 MG TABLET PO PRN (22:37)
[2018-05-31 05:07] LABS: Basophils % 0.3 % (0.0-0.8); Eosinophils # 0.6 10*3/uL (0.0-0.87); Eosinophils % 8.5 % (0.00-10.9); Hemoglobin 10.9 GM/DL (14.0-18.0); Immature Granulocytes % 0.6 %; Immature Granulocytes Absolute 0.04 #; Lymphocytes # 0.9 10*3/uL (1.4-4.0); Lymphocytes % 12.9 % (21.2-54.2); Mean Corpuscular HGB Conc 32.1 GM/DL (32-36); Mean Corpuscular Hemoglobin 29 PG (27-34); Mean Corpuscular Volume 90.2 FL (87-102); Mean Platelet Volume 10.4 FL (9.6-12.0); Monocytes # 0.6 10*3/uL (0.11-0.8); Monocytes % 8.5 % (1.7-12.7); Neutrophils # 4.9 10*3/uL (1.4-7.4); Neutrophils % 69.2 % (38.7-73.9); Platelet Count 244 T/CUMM (130-400); Red Blood Count 3.77 MC/CUMM (3.8-5.5); White Blood Count 7.1 T/CUMM (4-12)
[2018-05-31 05:31] LABS: Calcium 8.4 MG/DL (8.5-10.1); Osmolality,Calculated 281.3 MOS/KG (273-304); Potassium 3.9 MMOL/L (3.5-5.1)
[2018-05-31] MEDS: HYDROmorphone 2 MG/1 ML VIAL IV PRN ×2 (05:35→14:39)
[2018-05-31] MEDS: ONDANSETRON 4 MG/2 ML VIAL IV PRN ×2 (05:35→22:18)
[2018-05-31] MEDS: LEVOTHYROXINE 88 MCG TABLET PO SCH (06:21)
[2018-05-31] MEDS: MORPHINE 4 MG/1 ML VIAL IV PRN ×3 (06:27→20:23)
[2018-05-31] MEDS: CARVEDILOL 6.25 MG TABLET PO SCH ×2 (09:48→20:22)
[2018-05-31] MEDS: ASPIRIN EC 81 MG TABLET PO SCH (09:48)
[2018-05-31] MEDS: amLODIPine 5 MG TABLET PO SCH (09:48)
[2018-05-31] MEDS: BRIMONIDINE 0.15% OPH SOLN 1 DROP/DROPS BOTTLE LEFT EYE SCH ×2 (09:49→20:34)
[2018-05-31] MEDS: FENOFIBRATE 48 MG TABLET PO SCH (09:49)
[2018-05-31] MEDS: PANTOPRAZOLE 40 MG TABLET PO SCH ×2 (09:49→20:22)
[2018-05-31] MEDS: ISOSORBIDE MONONITRATE 30 MG TABLET PO SCH (09:49)
[2018-05-31] MEDS: prednisoLONE ACETATE 1% OPH SUSP 5 ML BOTTLE LEFT EYE SCH ×2 (09:49→20:35)
[2018-05-31] MEDS ORDERED: HYDROmorphone 2 MG/1 ML VIAL IV ONE (15:53)
[2018-05-31] MEDS ORDERED: FUROSEMIDE 40 MG/4 ML VIAL IV ONE (16:58)
[2018-05-31] MEDS: ROSUVASTATIN 20 MG TABLET PO SCH (20:22)
[2018-05-31] MEDS: ALUM/MAG/SIMETH/LIDO VISC 1:1 30 ML BOTTLE PO PRN (22:21)
[2018-05-31] MEDS: ALPRAZolam 0.25 MG TABLET PO PRN (22:22)
[2018-06-01] MEDS: MORPHINE 4 MG/1 ML VIAL IV PRN ×3 (03:02→15:17)
[2018-06-01 04:59] LABS: Basophils % 0.2 % (0.0-0.8); Eosinophils # 0.2 10*3/uL (0.0-0.87); Eosinophils % 1.7 % (0.00-10.9); Hematocrit 33.8 VOL% (42.0-52.0); Hemoglobin 10.7 GM/DL (14.0-18.0); Immature Granulocytes % 0.4 %; Immature Granulocytes Absolute 0.05 #; Lymphocytes # 0.7 10*3/uL (1.4-4.0); Mean Corpuscular HGB Conc 31.7 GM/DL (32-36); Mean Corpuscular Hemoglobin 29 PG (27-34); Mean Corpuscular Volume 91.4 FL (87-102); Mean Platelet Volume 10.8 FL (9.6-12.0); Monocytes % 8.3 % (1.7-12.7); Neutrophils # 10.4 10*3/uL (1.4-7.4); Neutrophils % 83.4 % (38.7-73.9); Platelet Count 220 T/CUMM (130-400); Red Cell Distribution Width 14.2 % (9.3-17.3); White Blood Count 12.4 T/CUMM (4-12)
[2018-06-01 05:23] LABS: Calcium 8.4 MG/DL (8.5-10.1); Osmolality,Calculated 281.5 MOS/KG (273-304); Potassium 4.1 MMOL/L (3.5-5.1)
[2018-06-01] MEDS: LEVOTHYROXINE 88 MCG TABLET PO SCH (06:07)
[2018-06-01] MEDS: FENOFIBRATE 48 MG TABLET PO SCH (09:00)
[2018-06-01] MEDS: ASPIRIN EC 81 MG TABLET PO SCH (09:00)
[2018-06-01] MEDS: PANTOPRAZOLE 40 MG TABLET PO SCH ×2 (09:00→20:49)
[2018-06-01] MEDS: CARVEDILOL 6.25 MG TABLET PO SCH ×2 (09:00→20:49)
[2018-06-01] MEDS: ISOSORBIDE MONONITRATE 30 MG TABLET PO SCH (09:01)
[2018-06-01] MEDS: BRIMONIDINE 0.15% OPH SOLN 1 DROP/DROPS BOTTLE LEFT EYE SCH ×2 (09:02→21:14)
[2018-06-01] MEDS: prednisoLONE ACETATE 1% OPH SUSP 5 ML BOTTLE LEFT EYE SCH ×2 (09:02→21:14)
[2018-06-01] MEDS ORDERED: FUROSEMIDE 40 MG TABLET PO ONE (11:28)
[2018-06-01] MEDS: LEVOFLOXACIN INJ 500 MG in PREMIX 1 EACH IV SCH (12:14)
[2018-06-01] MEDS: amLODIPine 5 MG TABLET PO SCH ×2 (12:15→15:17)
[2018-06-01] MEDS: ALBUTEROL 1.25 MG/3 ML NEB RESP TX SCH ×2 (13:03→19:12)
[2018-06-01] MEDS: oxyCODONE/ACETAMINOPHEN 5-325 MG TABLET PO PRN (16:31)
[2018-06-01] MEDS: cefTRIAXone 1,000 MG in SYRINGE 1 EACH IV SCH (18:12)
[2018-06-01] MEDS: HYDROmorphone 2 MG/1 ML VIAL IV PRN ×2 (18:26→21:15)
[2018-06-01] MEDS: ARFORMOTEROL 15 MCG/2 ML NEB RESP TX SCH (19:12)
[2018-06-01] MEDS: ROSUVASTATIN 20 MG TABLET PO SCH (20:50)
[2018-06-01] MEDS: ALPRAZolam 0.25 MG TABLET PO PRN (21:00)
[2018-06-01] MEDS ORDERED: NALOXONE 0.4 MG/ML VIAL ONE (21:39)
[2018-06-02] MEDS: ALBUTEROL 1.25 MG/3 ML NEB RESP TX SCH ×2 (00:39→07:00)
[2018-06-02] MEDS: oxyCODONE/ACETAMINOPHEN 5-325 MG TABLET PO PRN (02:08)
[2018-06-02 05:28] LABS: Basophils % 0.2 % (0.0-0.8); Eosinophils # 0.4 10*3/uL (0.0-0.87); Eosinophils % 4.5 % (0.00-10.9); Hematocrit 32.7 VOL% (42.0-52.0); Hemoglobin 10.5 GM/DL (14.0-18.0); Immature Granulocytes % 0.3 %; Immature Granulocytes Absolute 0.03 #; Lymphocytes # 0.7 10*3/uL (1.4-4.0); Lymphocytes % 8.5 % (21.2-54.2); Mean Corpuscular HGB Conc 32.1 GM/DL (32-36); Mean Corpuscular Hemoglobin 29 PG (27-34); Mean Corpuscular Volume 90.6 FL (87-102); Mean Platelet Volume 11.2 FL (9.6-12.0); Monocytes # 0.9 10*3/uL (0.11-0.8); Monocytes % 10.6 % (1.7-12.7); Neutrophils # 6.6 10*3/uL (1.4-7.4); Neutrophils % 75.9 % (38.7-73.9); Platelet Count 213 T/CUMM (130-400); Red Blood Count 3.61 MC/CUMM (3.8-5.5); Red Cell Distribution Width 13.8 % (9.3-17.3); White Blood Count 8.7 T/CUMM (4-12)
[2018-06-02 05:57] LABS: Calcium 8.5 MG/DL (8.5-10.1); Osmolality,Calculated 279.7 MOS/KG (273-304)
[2018-06-02] MEDS: LEVOTHYROXINE 88 MCG TABLET PO SCH (06:37)
[2018-06-02] MEDS: ARFORMOTEROL 15 MCG/2 ML NEB RESP TX SCH ×2 (07:00→19:08)
[2018-06-02] MEDS: ASPIRIN EC 81 MG TABLET PO SCH (09:04)
[2018-06-02] MEDS: GABAPENTIN 100 MG CAPSULE PO SCH ×2 (09:04→20:23)
[2018-06-02] MEDS: PANTOPRAZOLE 40 MG TABLET PO SCH ×2 (09:04→20:23)
[2018-06-02] MEDS: CARVEDILOL 6.25 MG TABLET PO SCH ×2 (09:04→20:23)
[2018-06-02] MEDS: ISOSORBIDE MONONITRATE 30 MG TABLET PO SCH (09:05)
[2018-06-02] MEDS: amLODIPine 5 MG TABLET PO SCH (09:05)
[2018-06-02] MEDS: methylPREDNISolone SOD SUC 40 MG/1 ML VIAL IV SCH ×2 (09:07→16:58)
[2018-06-02] MEDS: prednisoLONE ACETATE 1% OPH SUSP 5 ML BOTTLE LEFT EYE SCH ×2 (09:13→20:32)
[2018-06-02] MEDS: BRIMONIDINE 0.15% OPH SOLN 1 DROP/DROPS BOTTLE LEFT EYE SCH ×2 (09:19→20:32)
[2018-06-02] MEDS: FENOFIBRATE 48 MG TABLET PO SCH (09:19)
[2018-06-02] MEDS: LEVOFLOXACIN INJ 500 MG in PREMIX 1 EACH IV SCH (11:26)
[2018-06-02] MEDS: cefTRIAXone 1,000 MG in SYRINGE 1 EACH IV SCH (16:59)
[2018-06-02] MEDS: ALPRAZolam 0.25 MG TABLET PO PRN (20:23)
[2018-06-02] MEDS: ROSUVASTATIN 20 MG TABLET PO SCH (20:23)
[2018-06-02] MEDS: fentaNYL 12 MCG/HR PATCH TRANSDERM SCH (20:28)
[2018-06-03] MEDS: methylPREDNISolone SOD SUC 40 MG/1 ML VIAL IV SCH ×4 (00:17→23:58)
[2018-06-03] MEDS: ALPRAZolam 0.25 MG TABLET PO PRN ×3 (04:28→21:26)
[2018-06-03 05:36] LABS: Basophils % 0.1 % (0.0-0.8); Hematocrit 39.1 VOL% (42.0-52.0); Hemoglobin 12.3 GM/DL (14.0-18.0); Immature Granulocytes Absolute 0.11 #; Lymphocytes # 0.6 10*3/uL (1.4-4.0); Lymphocytes % 4.9 % (21.2-54.2); Mean Corpuscular HGB Conc 31.5 GM/DL (32-36); Mean Corpuscular Hemoglobin 29 PG (27-34); Mean Corpuscular Volume 90.7 FL (87-102); Mean Platelet Volume 10.9 FL (9.6-12.0); Monocytes # 0.2 10*3/uL (0.11-0.8); Monocytes % 2.1 % (1.7-12.7); Neutrophils # 10.3 10*3/uL (1.4-7.4); Neutrophils % 91.9 % (38.7-73.9); Platelet Count 306 T/CUMM (130-400); Red Blood Count 4.31 MC/CUMM (3.8-5.5); Red Cell Distribution Width 13.4 % (9.3-17.3); White Blood Count 11.2 T/CUMM (4-12)
[2018-06-03 05:53] LABS: Potassium 3.8 MMOL/L (3.5-5.1)
[2018-06-03 06:03] LABS: Hypochromasia 1+; Lymphocytes 6 % (20-55); Ovalocytes Slight; Platelet Estimate Adequate; Segmented Neutrophils 93 % (50-85); Total Cells Counted 100
[2018-06-03] MEDS: ARFORMOTEROL 15 MCG/2 ML NEB RESP TX SCH ×2 (06:58→19:30)
[2018-06-03] MEDS: LEVOTHYROXINE 88 MCG TABLET PO SCH (07:38)
[2018-06-03] MEDS: ASPIRIN EC 81 MG TABLET PO SCH (09:17)
[2018-06-03] MEDS: GABAPENTIN 100 MG CAPSULE PO SCH ×2 (09:18→21:26)
[2018-06-03] MEDS: ISOSORBIDE MONONITRATE 30 MG TABLET PO SCH (09:18)
[2018-06-03] MEDS: PANTOPRAZOLE 40 MG TABLET PO SCH ×2 (09:18→21:26)
[2018-06-03] MEDS: amLODIPine 5 MG TABLET PO SCH (09:18)
[2018-06-03] MEDS: CARVEDILOL 6.25 MG TABLET PO SCH ×2 (09:18→21:26)
[2018-06-03] MEDS: FENOFIBRATE 48 MG TABLET PO SCH (09:19)
[2018-06-03] MEDS: prednisoLONE ACETATE 1% OPH SUSP 5 ML BOTTLE LEFT EYE SCH ×2 (09:21→22:26)
[2018-06-03] MEDS: BRIMONIDINE 0.15% OPH SOLN 1 DROP/DROPS BOTTLE LEFT EYE SCH ×2 (09:21→22:26)
[2018-06-03] MEDS: LEVOFLOXACIN INJ 500 MG in PREMIX 1 EACH IV SCH (11:53)
[2018-06-03] MEDS: cefTRIAXone 1,000 MG in SYRINGE 1 EACH IV SCH (17:17)
[2018-06-03] MEDS: ROSUVASTATIN 20 MG TABLET PO SCH (21:26)
[2018-06-04] MEDS: methylPREDNISolone SOD SUC 40 MG/1 ML VIAL IV SCH ×2 (00:01→09:54)
[2018-06-04] MEDS: ALPRAZolam 0.25 MG TABLET PO PRN (04:00)
[2018-06-04 04:20] LABS: Basophils % 0.1 % (0.0-0.8); Hematocrit 34.5 VOL% (42.0-52.0); Hemoglobin 11.3 GM/DL (14.0-18.0); Immature Granulocytes % 0.8 %; Immature Granulocytes Absolute 0.14 #; Lymphocytes # 0.5 10*3/uL (1.4-4.0); Lymphocytes % 2.6 % (21.2-54.2); Mean Corpuscular HGB Conc 32.8 GM/DL (32-36); Mean Corpuscular Hemoglobin 29 PG (27-34); Mean Corpuscular Volume 88.9 FL (87-102); Mean Platelet Volume 11.1 FL (9.6-12.0); Monocytes # 0.3 10*3/uL (0.11-0.8); Monocytes % 1.8 % (1.7-12.7); Neutrophils # 17.3 10*3/uL (1.4-7.4); Neutrophils % 94.7 % (38.7-73.9); Platelet Count 275 T/CUMM (130-400); Red Blood Count 3.88 MC/CUMM (3.8-5.5); Red Cell Distribution Width 13.9 % (9.3-17.3); White Blood Count 18.2 T/CUMM (4-12)
[2018-06-04 04:51] LABS: Potassium 4.2 MMOL/L (3.5-5.1)
[2018-06-04 05:06] LABS: Lymphocytes 1 % (20-55); Platelet Estimate Normal; Polychromasia Few; Segmented Neutrophils 99 % (50-85); Total Cells Counted 100
[2018-06-04] MEDS: LEVOTHYROXINE 88 MCG TABLET PO SCH (06:38)
[2018-06-04] MEDS: ARFORMOTEROL 15 MCG/2 ML NEB RESP TX SCH (06:53)
[2018-06-04 07:38] VITALS: BP 124/63
[2018-06-04] MEDS: amLODIPine 5 MG TABLET PO SCH (09:53)
[2018-06-04] MEDS: ASPIRIN EC 81 MG TABLET PO SCH (09:53)
[2018-06-04] MEDS: GABAPENTIN 100 MG CAPSULE PO SCH (09:53)
[2018-06-04] MEDS: ISOSORBIDE MONONITRATE 30 MG TABLET PO SCH (09:54)
[2018-06-04] MEDS: FENOFIBRATE 48 MG TABLET PO SCH (09:54)
[2018-06-04] MEDS: prednisoLONE ACETATE 1% OPH SUSP 5 ML BOTTLE LEFT EYE SCH (09:54)
[2018-06-04] MEDS: PANTOPRAZOLE 40 MG TABLET PO SCH (09:54)
[2018-06-04] MEDS: CARVEDILOL 6.25 MG TABLET PO SCH (09:54)
[2018-06-04] MEDS: BRIMONIDINE 0.15% OPH SOLN 1 DROP/DROPS BOTTLE LEFT EYE SCH (09:54)
[2018-06-04] MEDS ORDERED: GABAPENTIN 100 MG CAPSULE PO SCH (15:00)
[2018-06-04] MEDS ORDERED: GABAPENTIN 400 MG CAPSULE PO SCH (15:00)
[2018-06-05] MEDS ORDERED: LEVOFLOXACIN 500 MG TABLET PO SCH (09:00)
== END 2018-06-04 10:45 | disposition home health service (06) | DRG 299 ==
LOC: EDUNIT# → N.ED 09:31 → N.EDINP 11:49 → N.TELES 13:00
PROVIDERS: ADMIT Internal Medicine Cardiovascular Disease; ATTEND Internal Medicine Cardiovascular Disease

== ENCOUNTER 2018-06-13 11:52 | Observation (INO) ==
[2018-06-13] MEDS ORDERED: ONDANSETRON 4 MG/2 ML VIAL IV STA (12:31)
[2018-06-13] MEDS ORDERED: HYDROmorphone 2 MG/1 ML VIAL IV STA (12:31)
[2018-06-13 13:02] LABS: Basophils % 0.3 % (0.0-0.8); Eosinophils # 0.3 10*3/uL (0.0-0.87); Hemoglobin 11.8 GM/DL (14.0-18.0); Immature Granulocytes % 0.8 %; Immature Granulocytes Absolute 0.12 #; Lymphocytes # 0.7 10*3/uL (1.4-4.0); Lymphocytes % 4.9 % (21.2-54.2); Mean Corpuscular HGB Conc 31.9 GM/DL (32-36); Mean Corpuscular Hemoglobin 29 PG (27-34); Mean Corpuscular Volume 90.2 FL (87-102); Mean Platelet Volume 9.2 FL (9.6-12.0); Monocytes # 1.1 10*3/uL (0.11-0.8); Monocytes % 7.8 % (1.7-12.7); Neutrophils # 12.3 10*3/uL (1.4-7.4); Neutrophils % 84.2 % (38.7-73.9); Platelet Count 268 T/CUMM (130-400); Red Cell Distribution Width 13.8 % (9.3-17.3); White Blood Count 14.6 T/CUMM (4-12)
[2018-06-13 13:28] LABS: Band Neutrophils 1 % (0-10); Eosinophils 2 % (0-10); Lymphocytes 5 % (20-55); Platelet Estimate Adequate; Reactive Lymphocytes Few; Segmented Neutrophils 84 % (50-85); Total Cells Counted 100
[2018-06-13 13:35] LABS: Albumin 2.8 G/DL (3.4-5.0); Bilirubin,Total 0.6 MG/DL (0.2-1.0); Calcium 8.5 MG/DL (8.5-10.1); Osmolality,Calculated 275.7 MOS/KG (273-304); Potassium 4.3 MMOL/L (3.5-5.1); Total Protein 6.5 G/DL (6.4-8.3)
[2018-06-13] MEDS ORDERED: MEROPENEM 1,000 MG in SODIUM CHLORIDE 0.9% 100 ML IV STA (14:48)
[2018-06-13 15:05] LABS: Apearance,Urine CLEAR (Clear); Bilirubin,Urine Negative (Negative); Blood, Urine Negative (Negative); Glucose,Urine (UA) Negative (Negative); Hyaline Casts,Urine 3 /LPF (0-3); Ketones,Urine Negative (Negative); Mucus,Urine Occasional /LPF (Occasional); Nitrite,Urine Negative (Negative); Protein,Urine Negative; RBC,Urine 3 /HPF (0-4); Urine Color Yellow (Yellow); Urine Specific Gravity 1.032 (1.001-1.035); Urine Urobilinogen < 2.0 EU/DL (0.2-1.0); WBC,Urine <1 /HPF (0-6)
[2018-06-13] MEDS ORDERED: hydrALAZINE 20 MG/1 ML VIAL IV STA (15:08)
[2018-06-13] MEDS ORDERED: ONDANSETRON 4 MG/2 ML VIAL IV PRN (15:57)
[2018-06-13] MEDS ORDERED: traZODone 50 MG TABLET PO PRN (15:57)
[2018-06-13] MEDS ORDERED: ZALEPLON 5 MG CAPSULE PO PRN (15:57)
[2018-06-13] MEDS ORDERED: DOCUSATE SODIUM 100 MG CAPSULE PO PRN (15:57)
[2018-06-13] MEDS ORDERED: ACETAMINOPHEN 325 MG TABLET PO PRN (15:57)
[2018-06-13] MEDS ORDERED: oxyCODONE/ACETAMINOPHEN 5-325 MG TABLET PO PRN (16:06)
[2018-06-13] MEDS ORDERED: POLYETHYLENE GLYCOL POWDER 17 GM PACK PO PRN (16:06)
[2018-06-13] MEDS ORDERED: ALPRAZolam 0.25 MG TABLET PO PRN (16:06)
[2018-06-13] MEDS ORDERED: METHYLNALTREXONE 12 MG/0.6 ML VIAL SUBCUT ONE (16:41)
[2018-06-13] MEDS ORDERED: MINERAL OIL ENEMA 133 ML BOTTLE RECTAL PRN (17:03)
[2018-06-13] MEDS: SUCRALFATE 1 GM TABLET PO SCH (17:41)
[2018-06-13] MEDS: PIPERACILLIN/TAZOBACTAM 3,375 MG in SODIUM CHLORIDE 0.9% 100 ML IV SCH (17:42)
[2018-06-13] MEDS ORDERED: amLODIPine 5 MG TABLET PO SCH (18:00)
[2018-06-13] MEDS ORDERED: ENOXAPARIN 40 MG/0.4 ML SYRINGE SUBCUT SCH (21:00)
[2018-06-13] MEDS ORDERED: ASPIRIN EC 325 MG TABLET PO SCH (21:00)
[2018-06-13] MEDS ORDERED: FAMOTIDINE 20 MG TABLET PO SCH (21:00)
[2018-06-13] MEDS ORDERED: ROSUVASTATIN 20 MG TABLET PO SCH (21:00)
[2018-06-13] MEDS ORDERED: GABAPENTIN 100 MG CAPSULE PO SCH (21:00)
[2018-06-13] MEDS: BRIMONIDINE 0.15% OPH SOLN 1 DROP/DROPS BOTTLE LEFT EYE SCH (21:36)
[2018-06-13] MEDS: prednisoLONE ACETATE 1% OPH SUSP 5 ML BOTTLE LEFT EYE SCH (21:37)
[2018-06-14] MEDS: PIPERACILLIN/TAZOBACTAM 3,375 MG in SODIUM CHLORIDE 0.9% 100 ML IV SCH ×2 (01:55→12:41)
[2018-06-14 05:26] LABS: Basophils % 0.2 % (0.0-0.8); Eosinophils # 0.4 10*3/uL (0.0-0.87); Hematocrit 30.9 VOL% (42.0-52.0); Hemoglobin 9.8 GM/DL (14.0-18.0); Immature Granulocytes % 0.6 %; Immature Granulocytes Absolute 0.05 #; Lymphocytes # 0.7 10*3/uL (1.4-4.0); Lymphocytes % 7.4 % (21.2-54.2); Mean Corpuscular HGB Conc 31.7 GM/DL (32-36); Mean Corpuscular Hemoglobin 29 PG (27-34); Mean Corpuscular Volume 91.2 FL (87-102); Mean Platelet Volume 9.2 FL (9.6-12.0); Monocytes # 0.8 10*3/uL (0.11-0.8); Monocytes % 9.1 % (1.7-12.7); Neutrophils # 6.8 10*3/uL (1.4-7.4); Neutrophils % 77.7 % (38.7-73.9); Platelet Count 235 T/CUMM (130-400); Red Blood Count 3.39 MC/CUMM (3.8-5.5); Red Cell Distribution Width 13.9 % (9.3-17.3); White Blood Count 8.8 T/CUMM (4-12)
[2018-06-14 05:43] LABS: Osmolality,Calculated 274.7 MOS/KG (273-304); Potassium 3.7 MMOL/L (3.5-5.1)
[2018-06-14] MEDS ORDERED: LEVOTHYROXINE 88 MCG TABLET PO SCH (07:00)
[2018-06-14] MEDS: BRIMONIDINE 0.15% OPH SOLN 1 DROP/DROPS BOTTLE LEFT EYE SCH (08:35)
[2018-06-14] MEDS: prednisoLONE ACETATE 1% OPH SUSP 5 ML BOTTLE LEFT EYE SCH (08:36)
[2018-06-14] MEDS: SUCRALFATE 1 GM TABLET PO SCH (08:36)
[2018-06-14] MEDS ORDERED: PANTOPRAZOLE 40 MG TABLET PO SCH ×2 (09:00)
[2018-06-14] MEDS ORDERED: CETIRIZINE 10 MG TABLET PO SCH (09:00)
[2018-06-14] MEDS ORDERED: FENOFIBRIC ACID 45 MG PO SCH (09:00)
[2018-06-14] MEDS ORDERED: ISOSORBIDE MONONITRATE 30 MG TABLET PO SCH (09:00)
[2018-06-14 13:16] VITALS: BP 111/53
[2018-06-16] MEDS ORDERED: fentaNYL 25 MCG/HR PATCH TRANSDERM SCH (09:00)
== END 2018-06-14 10:35 | disposition home or self-care (01) ==
LOC: N.ED 11:52 → N.EDINP 11:52 → N.5E 17:09
PROVIDERS: ADMIT Internal Medicine; ATTEND Internal Medicine

== ENCOUNTER 2019-04-15 23:06 | Inpatient (IN) ==
[2019-04-16] MEDS: HYDROmorphone 2 MG/1 ML VIAL IV PRN ×3 (00:19→16:52)
[2019-04-16] MEDS: ONDANSETRON 4 MG/2 ML VIAL IV PRN ×3 (00:20→13:18)
[2019-04-16] MEDS ORDERED: SODIUM CHLORIDE 0.9% 500 ML IV STA (02:00)
[2019-04-16] MEDS: DEXTROSE 5% NACL 0.45% 1,000 ML IV SCH ×4 (03:23→17:02)
[2019-04-16 05:22] LABS: Basophils % 0.2 % (0.0-0.8); Eosinophils # 0.2 10*3/uL (0.0-0.87); Eosinophils % 1.3 % (0.00-10.9); Hematocrit 35.5 VOL% (42.0-52.0); Hemoglobin 11.4 GM/DL (14.0-18.0); Immature Granulocytes % 0.5 %; Immature Granulocytes Absolute 0.06 #; Lymphocytes # 0.6 10*3/uL (1.4-4.0); Lymphocytes % 5.1 % (21.2-54.2); Mean Corpuscular HGB Conc 32.1 GM/DL (32-36); Mean Platelet Volume 10.4 FL (9.6-12.0); Neutrophils % 82.9 % (38.7-73.9); Platelet Count 294 T/CUMM (130-400); Red Cell Distribution Width 14.7 % (9.3-17.3); White Blood Count 11.9 T/CUMM (4-12)
[2019-04-16 05:52] LABS: Albumin 2.7 G/DL (3.4-5.0); Bilirubin,Total 0.6 MG/DL (0.2-1.0); Calcium 8.3 MG/DL (8.5-10.1); Total Protein 5.5 G/DL (6.4-8.3)
[2019-04-16] MEDS ORDERED: ASPIRIN CHEW 81 MG TABLET PO ONE (05:52)
[2019-04-16] MEDS ORDERED: NITROGLYCERIN SL 0.4 MG TABLET SL PRN (05:52)
[2019-04-16] MEDS ORDERED: ASPIRIN 325 MG TABLET ONE (05:55)
[2019-04-16] MEDS: MORPHINE 4 MG/1 ML VIAL IV PRN (06:01)
[2019-04-16] MEDS ORDERED: SODIUM CHLORIDE 0.9% 500 ML IV ONE ×2 (06:20→08:08)
[2019-04-16] MEDS: PANTOPRAZOLE 40 MG VIAL IV SCH (08:51)
[2019-04-16] MEDS: PIPERACILLIN/TAZOBACTAM 3,375 MG in SODIUM CHLORIDE 0.9% 100 ML IV SCH ×2 (10:38→18:10)
[2019-04-16 11:02] LABS: Basophils % 0.1 % (0.0-0.8); Eosinophils % 0.1 % (0.00-10.9); Hematocrit 32.4 VOL% (42.0-52.0); Hemoglobin 10.6 GM/DL (14.0-18.0); Immature Granulocytes % 0.7 %; Immature Granulocytes Absolute 0.15 #; Lymphocytes # 0.5 10*3/uL (1.4-4.0); Lymphocytes % 2.5 % (21.2-54.2); Mean Corpuscular HGB Conc 32.7 GM/DL (32-36); Mean Corpuscular Volume 90.5 FL (87-102); Mean Platelet Volume 9.7 FL (9.6-12.0); Monocytes % 9.4 % (1.7-12.7); Neutrophils % 87.2 % (38.7-73.9); Platelet Count 252 T/CUMM (130-400); Red Blood Count 3.58 MC/CUMM (3.8-5.5); Red Cell Distribution Width 14.8 % (9.3-17.3); White Blood Count 20.5 T/CUMM (4-12)
[2019-04-16 11:24] LABS: Anisocytosis 1+; Band Neutrophils 16 % (0-10); Lymphocytes 7 % (20-55); Platelet Estimate Normal; Segmented Neutrophils 70 % (50-85); Total Cells Counted 100
[2019-04-16 11:29] LABS: Albumin 2.4 G/DL (3.4-5.0); Bilirubin,Total 0.7 MG/DL (0.2-1.0); Calcium 7.9 MG/DL (8.5-10.1); Osmolality,Calculated 273.8 MOS/KG (273-304); Total Protein 5.1 G/DL (6.4-8.3)
[2019-04-16] MEDS ORDERED: ceFAZolin 1,000 MG in SYRINGE 1 EACH IV ONE (11:35)
[2019-04-16] MEDS ORDERED: LACTATED RINGERS 500 ML IV ONE (13:10)
[2019-04-16 15:44] LABS: Apearance,Urine CLEAR (Clear); Bilirubin,Urine Negative (Negative); Blood, Urine Negative (Negative); Glucose,Urine (UA) Negative (Negative); Ketones,Urine Negative (Negative); Nitrite,Urine Negative (Negative); Protein,Urine Negative; RBC,Urine 3 /HPF (0-4); Urine Color Yellow (Yellow); Urine Specific Gravity 1.033 (1.001-1.035); Urine Urobilinogen < 2.0 EU/DL (0.2-1.0); WBC,Urine 1 /HPF (0-6)
[2019-04-16] MEDS ORDERED: fentaNYL 100 MCG/2 ML VIAL ONE (15:52)
[2019-04-16] MEDS ORDERED: ALBUMIN 5% 12.5 GM/250 ML VIAL IV ONE (15:52)
[2019-04-16] MEDS ORDERED: SEVOFLURANE 1 UNIT/15 MINUTE INH ONE (15:52)
[2019-04-16] MEDS ORDERED: propofoL 200 MG/20 ML VIAL IV ONE (15:52)
[2019-04-16] MEDS ORDERED: LIDOCAINE 2% 5 ML VIAL ONE (15:52)
[2019-04-16] MEDS ORDERED: ETOMIDATE 40 MG/20 ML VIAL IV ONE (15:53)
[2019-04-16] MEDS ORDERED: ROCURONIUM 100 MG/10 ML VIAL IV ONE (15:53)
[2019-04-16] MEDS ORDERED: PHENYLEPHRINE 1 MG/10 ML SYRINGE IV ONE (15:53)
[2019-04-16] MEDS ORDERED: SUCCINYLCHOLINE 200 MG/10 ML VIAL ONE (15:53)
[2019-04-16 16:09] LABS: Allen Test Positive; Pt O2 Delivery Device Ventilator
[2019-04-16 16:10] LABS: ABG Base Excess 2.6 MMOL/L (-2.5-2.5); ABG HCO3 26.7 MMOL/L (20-26); ABG Oxygen Saturation 96.1 % (95-100); ABG PCO2 45.9 MM HG (35-48); ABG PH 7.394 (7.35-7.45); ABG PO2 83.4 MM HG (80-95)
[2019-04-16] MEDS: fentaNYL INJ 1,250 MCG in SODIUM CHLORIDE 0.9% 225 ML IV PRN (16:51)
[2019-04-16 17:55] LABS: Troponin I < 0.015 NG/ML (0.00-0.045)
[2019-04-16] MEDS: Esomeprazole Magnesium 40 MG PO SCH (20:14)
[2019-04-16] MEDS ORDERED: ALBUMIN 5% 25 GM in PREMIX 1 EACH IV ONE (20:30)
[2019-04-16] MEDS: BRIMONIDINE 0.15% OPH SOLN 1 DROP/DROPS BOTTLE LEFT EYE SCH (22:12)
[2019-04-16] MEDS: prednisoLONE ACETATE 1% OPH SUSP 5 ML BOTTLE LEFT EYE SCH (22:13)
[2019-04-17] MEDS: DEXTROSE 5% NACL 0.45% 1,000 ML IV SCH ×4 (00:20→19:01)
[2019-04-17] MEDS: fentaNYL INJ 1,250 MCG in SODIUM CHLORIDE 0.9% 225 ML IV PRN (01:02)
[2019-04-17] MEDS: ONDANSETRON 4 MG/2 ML VIAL IV PRN (02:10)
[2019-04-17] MEDS: PIPERACILLIN/TAZOBACTAM 3,375 MG in SODIUM CHLORIDE 0.9% 100 ML IV SCH ×3 (03:28→18:02)
[2019-04-17 05:05] LABS: Basophils % 0.2 % (0.0-0.8); Eosinophils % 0.1 % (0.00-10.9); Hematocrit 30.4 VOL% (42.0-52.0); Hemoglobin 9.9 GM/DL (14.0-18.0); Immature Granulocytes % 0.4 %; Immature Granulocytes Absolute 0.06 #; Lymphocytes # 0.7 10*3/uL (1.4-4.0); Lymphocytes % 4.6 % (21.2-54.2); Mean Corpuscular HGB Conc 32.6 GM/DL (32-36); Mean Corpuscular Volume 92.1 FL (87-102); Mean Platelet Volume 10.3 FL (9.6-12.0); Neutrophils % 87.7 % (38.7-73.9); Platelet Count 232 T/CUMM (130-400); Red Cell Distribution Width 14.7 % (9.3-17.3); White Blood Count 15.3 T/CUMM (4-12)
[2019-04-17 05:08] LABS: ABG Base Excess -0.7 MMOL/L (-2.5-2.5); ABG HCO3 23.9 MMOL/L (20-26); ABG Oxygen Saturation 99.2 % (95-100); ABG PCO2 42.6 MM HG (35-48); ABG PH 7.371 (7.35-7.45); ABG TCO2 22.2 MMOL/L (23-27); Allen Test Positive; Pt O2 Delivery Device Ventilator
[2019-04-17 05:26] LABS: Calcium 7.3 MG/DL (8.5-10.1); Osmolality,Calculated 270.2 MOS/KG (273-304)
[2019-04-17 05:33] LABS: Troponin I 0.049 NG/ML (0.00-0.045)
[2019-04-17 05:37] LABS: Anisocytosis 1+; Band Neutrophils 22 % (0-10); Lymphocytes 6 % (20-55); Segmented Neutrophils 70 % (50-85); Total Cells Counted 100
[2019-04-17 05:38] LABS: Platelet Estimate Normal
[2019-04-17] MEDS: LEVOTHYROXINE 88 MCG TABLET PO SCH (06:11)
[2019-04-17] MEDS ORDERED: SODIUM CHLORIDE 0.9% 500 ML IV ONE (08:00)
[2019-04-17 08:04] LABS: Allen Test Positive; Pt O2 Delivery Device Ventilator
[2019-04-17 08:08] LABS: ABG Base Excess -0.6 MMOL/L (-2.5-2.5); ABG HCO3 23.6 MMOL/L (20-26); ABG Oxygen Saturation 96.5 % (95-100); ABG PH 7.422 (7.35-7.45); ABG PO2 87.6 MM HG (80-95); ABG TCO2 24.7 MMOL/L (23-27)
[2019-04-17] MEDS: prednisoLONE ACETATE 1% OPH SUSP 5 ML BOTTLE LEFT EYE SCH ×2 (09:08→21:16)
[2019-04-17] MEDS: PANTOPRAZOLE 40 MG VIAL IV SCH (09:09)
[2019-04-17] MEDS: BRIMONIDINE 0.15% OPH SOLN 1 DROP/DROPS BOTTLE LEFT EYE SCH ×2 (09:09→21:16)
[2019-04-17] MEDS: Esomeprazole Magnesium 40 MG PO SCH ×2 (09:13→21:11)
[2019-04-17 09:16] LABS: Troponin I 0.051 NG/ML (0.00-0.045)
[2019-04-17] MEDS: HYDROmorphone 2 MG/1 ML VIAL IV PRN ×2 (09:55→16:31)
[2019-04-17] MEDS ORDERED: MAGNESIUM SULF RIDER 4 GM in PREMIX 1 EACH IV PRN (20:12)
[2019-04-17] MEDS: fentaNYL 12 MCG/HR PATCH TRANSDERM SCH (20:56)
[2019-04-17] MEDS: MAGNESIUM SULF RIDER 2 GM in PREMIX 1 EACH IV PRN (20:58)
[2019-04-17] MEDS: POTASSIUM CHLORIDE RIDER 10 MEQ in PREMIX 1 EACH IV PRN (23:28)
[2019-04-18] MEDS: POTASSIUM CHLORIDE RIDER 10 MEQ in PREMIX 1 EACH IV PRN ×5 (00:50→09:15)
[2019-04-18] MEDS: DEXTROSE 5% NACL 0.45% 1,000 ML IV SCH ×3 (00:52→15:50)
[2019-04-18] MEDS: HYDROmorphone 2 MG/1 ML VIAL IV PRN ×6 (02:19→22:34)
[2019-04-18] MEDS: PIPERACILLIN/TAZOBACTAM 3,375 MG in SODIUM CHLORIDE 0.9% 100 ML IV SCH ×3 (03:37→18:17)
[2019-04-18 05:33] LABS: Basophils % 0.1 % (0.0-0.8); Eosinophils # 0.1 10*3/uL (0.0-0.87); Eosinophils % 0.9 % (0.00-10.9); Hematocrit 26.3 VOL% (42.0-52.0); Hemoglobin 8.4 GM/DL (14.0-18.0); Immature Granulocytes % 1.1 %; Immature Granulocytes Absolute 0.15 #; Lymphocytes # 0.4 10*3/uL (1.4-4.0); Lymphocytes % 2.6 % (21.2-54.2); Mean Corpuscular HGB Conc 31.9 GM/DL (32-36); Mean Corpuscular Volume 92.3 FL (87-102); Mean Platelet Volume 10.6 FL (9.6-12.0); Monocytes % 6.8 % (1.7-12.7); Neutrophils % 88.5 % (38.7-73.9); Platelet Count 180 T/CUMM (130-400); Red Blood Count 2.85 MC/CUMM (3.8-5.5); Red Cell Distribution Width 14.5 % (9.3-17.3); White Blood Count 13.7 T/CUMM (4-12)
[2019-04-18 05:48] LABS: Calcium 7.5 MG/DL (8.5-10.1); Osmolality,Calculated 267.5 MOS/KG (273-304)
[2019-04-18 05:54] LABS: Band Neutrophils 4 % (0-10); Eosinophils 4 % (0-10); Hypochromasia Slight; Lymphocytes 3 % (20-55); Segmented Neutrophils 86 % (50-85); Total Cells Counted 100
[2019-04-18 05:55] LABS: Microcytosis Slight; Ovalocytes Slight
[2019-04-18 05:56] LABS: Platelet Estimate Adequate
[2019-04-18 05:58] LABS: Bilirubin,Direct 0.29 MG/DL (0.0-0.20); Bilirubin,Indirect 0.5 MG/DL (0.0-1.0); Bilirubin,Total 0.8 MG/DL (0.2-1.0); Total Protein 4.5 G/DL (6.4-8.3)
[2019-04-18] MEDS: LEVOTHYROXINE 88 MCG TABLET PO SCH (06:02)
[2019-04-18] MEDS ORDERED: FUROSEMIDE 40 MG/4 ML VIAL IV ONE (07:42)
[2019-04-18] MEDS: BRIMONIDINE 0.15% OPH SOLN 1 DROP/DROPS BOTTLE LEFT EYE SCH ×2 (09:16→21:53)
[2019-04-18] MEDS: prednisoLONE ACETATE 1% OPH SUSP 5 ML BOTTLE LEFT EYE SCH ×2 (09:16→21:53)
[2019-04-18] MEDS: PANTOPRAZOLE 40 MG VIAL IV SCH (09:17)
[2019-04-18] MEDS: Esomeprazole Magnesium 40 MG PO SCH ×2 (09:22→21:49)
[2019-04-18] MEDS ORDERED: AMIODARONE INJ 150 MG in DEXTROSE 5% 100 ML IV ONE (09:42)
[2019-04-18] MEDS ORDERED: AMIODARONE INJ 450 MG in DEXTROSE 5% 241 ML IV SCH (10:00)
[2019-04-18] MEDS: ASPIRIN CHEW 81 MG TABLET PO SCH (10:47)
[2019-04-18] MEDS: ALBUTEROL/IPRATROPIUM 3 ML NEB RESP TX SCH ×2 (13:43→19:24)
[2019-04-18] MEDS: AMIODARONE INJ 450 MG in DEXTROSE 5% 241 ML IV SCH (16:35)
[2019-04-19] MEDS: ALBUTEROL/IPRATROPIUM 3 ML NEB RESP TX SCH ×4 (01:18→18:53)
[2019-04-19] MEDS: DEXTROSE 5% NACL 0.45% 1,000 ML IV SCH (02:10)
[2019-04-19] MEDS: HYDROmorphone 2 MG/1 ML VIAL IV PRN ×5 (02:11→19:53)
[2019-04-19] MEDS: PIPERACILLIN/TAZOBACTAM 3,375 MG in SODIUM CHLORIDE 0.9% 100 ML IV SCH ×3 (03:46→19:40)
[2019-04-19 05:00] LABS: Basophils % 0.2 % (0.0-0.8); Eosinophils # 0.2 10*3/uL (0.0-0.87); Eosinophils % 0.9 % (0.00-10.9); Hematocrit 28.2 VOL% (42.0-52.0); Hemoglobin 9.5 GM/DL (14.0-18.0); Immature Granulocytes % 1.1 %; Lymphocytes # 0.2 10*3/uL (1.4-4.0); Lymphocytes % 0.9 % (21.2-54.2); Mean Corpuscular HGB Conc 33.7 GM/DL (32-36); Mean Platelet Volume 10.9 FL (9.6-12.0); Monocytes % 3.8 % (1.7-12.7); Neutrophils % 93.1 % (38.7-73.9); Platelet Count 169 T/CUMM (130-400); Red Cell Distribution Width 14.3 % (9.3-17.3)
[2019-04-19 05:15] LABS: Calcium 7.5 MG/DL (8.5-10.1); Osmolality,Calculated 263.7 MOS/KG (273-304)
[2019-04-19 05:19] LABS: Band Neutrophils 1 % (0-10); Hypochromasia 1+; Lymphocytes 2 % (20-55); Microcytosis Slight; Ovalocytes Slight; Platelet Estimate Adequate; Segmented Neutrophils 94 % (50-85); Total Cells Counted 100
[2019-04-19] MEDS ORDERED: FUROSEMIDE 20 MG/2 ML VIAL IV ONE (05:24)
[2019-04-19] MEDS: POTASSIUM CHLORIDE RIDER 10 MEQ in PREMIX 1 EACH IV PRN ×7 (06:13→16:51)
[2019-04-19] MEDS: LEVOTHYROXINE 88 MCG TABLET PO SCH (06:21)
[2019-04-19] MEDS ORDERED: FUROSEMIDE 40 MG/4 ML VIAL IV ONE ×2 (07:51→17:45)
[2019-04-19] MEDS ORDERED: VANCOMYCIN INJ 1,500 MG in SODIUM CHLORIDE 0.9% 500 ML IV ONE (08:30)
[2019-04-19] MEDS: Esomeprazole Magnesium 40 MG PO SCH ×2 (08:37→21:23)
[2019-04-19] MEDS: AMIODARONE INJ 450 MG in DEXTROSE 5% 241 ML IV SCH (08:44)
[2019-04-19] MEDS: ASPIRIN CHEW 81 MG TABLET PO SCH (08:49)
[2019-04-19] MEDS: PANTOPRAZOLE 40 MG VIAL IV SCH (08:51)
[2019-04-19] MEDS: BRIMONIDINE 0.15% OPH SOLN 1 DROP/DROPS BOTTLE LEFT EYE SCH ×2 (09:00→21:42)
[2019-04-19] MEDS: prednisoLONE ACETATE 1% OPH SUSP 5 ML BOTTLE LEFT EYE SCH ×2 (09:00→21:42)
[2019-04-19 10:56] LABS: Troponin I 0.072 NG/ML (0.00-0.045)
[2019-04-19 13:50] LABS: Troponin I 0.067 NG/ML (0.00-0.045)
[2019-04-19] MEDS ORDERED: hydrALAZINE 20 MG/1 ML VIAL IV ONE (15:28)
[2019-04-19] MEDS ORDERED: hydrALAZINE 20 MG/1 ML VIAL ONE (15:30)
[2019-04-19] MEDS ORDERED: hydrALAZINE 20 MG/1 ML VIAL IV PRN (16:06)
[2019-04-19 18:10] LABS: ABG Base Excess 2.3 MMOL/L (-2.5-2.5); ABG HCO3 26.2 MMOL/L (20-26); ABG Oxygen Saturation 83.8 % (95-100); ABG PCO2 38.7 MM HG (35-48); ABG PH 7.442 (7.35-7.45); ABG PO2 47.3 MM HG (80-95); ABG TCO2 23.7 MMOL/L (23-27); Pt O2 Delivery Device Venturi Mask
[2019-04-19] MEDS: VANCOMYCIN INJ 1,250 MG in SODIUM CHLORIDE 0.9% 250 ML IV SCH (21:42)
[2019-04-20] MEDS: AMIODARONE INJ 450 MG in DEXTROSE 5% 241 ML IV SCH ×2 (00:04→15:40)
[2019-04-20] MEDS: HYDROmorphone 2 MG/1 ML VIAL IV PRN ×5 (00:04→22:46)
[2019-04-20] MEDS: ALBUTEROL/IPRATROPIUM 3 ML NEB RESP TX SCH ×4 (00:31→19:21)
[2019-04-20] MEDS: ALPRAZolam 0.25 MG TABLET PO PRN (00:45)
[2019-04-20] MEDS ORDERED: FUROSEMIDE 40 MG/4 ML VIAL IV ONE (01:30)
[2019-04-20 01:32] LABS: Allen Test Positive; Pt O2 Delivery Device Ventilator
[2019-04-20 01:33] LABS: ABG Base Excess 0.6 MMOL/L (-2.5-2.5); ABG HCO3 24.9 MMOL/L (20-26); ABG Oxygen Saturation 93.9 % (95-100); ABG PH 7.366 (7.35-7.45); ABG PO2 72.3 MM HG (80-95); ABG TCO2 23.9 MMOL/L (23-27)
[2019-04-20] MEDS: PIPERACILLIN/TAZOBACTAM 3,375 MG in SODIUM CHLORIDE 0.9% 100 ML IV SCH ×3 (03:18→18:04)
[2019-04-20 05:42] LABS: Basophils # 0.1 10*3/uL (0.0-0.2); Basophils % 0.2 % (0.0-0.8); Eosinophils # 0.2 10*3/uL (0.0-0.87); Eosinophils % 0.7 % (0.00-10.9); Hematocrit 32.5 VOL% (42.0-52.0); Hemoglobin 11.1 GM/DL (14.0-18.0); Immature Granulocytes % 0.7 %; Immature Granulocytes Absolute 0.18 #; Lymphocytes # 0.2 10*3/uL (1.4-4.0); Lymphocytes % 0.9 % (21.2-54.2); Mean Corpuscular HGB Conc 34.2 GM/DL (32-36); Mean Corpuscular Volume 88.8 FL (87-102); Mean Platelet Volume 10.5 FL (9.6-12.0); Monocytes % 5.9 % (1.7-12.7); Neutrophils % 91.6 % (38.7-73.9); Platelet Count 176 T/CUMM (130-400); Red Blood Count 3.66 MC/CUMM (3.8-5.5); Red Cell Distribution Width 14.3 % (9.3-17.3); White Blood Count 26.3 T/CUMM (4-12)
[2019-04-20 06:00] LABS: Calcium 8.2 MG/DL (8.5-10.1); Osmolality,Calculated 262.7 MOS/KG (273-304)
[2019-04-20 06:08] LABS: Burr Cells Slight; Eosinophils 1 % (0-10); Lymphocytes 2 % (20-55); Ovalocytes Slight; Platelet Estimate Adequate; Segmented Neutrophils 94 % (50-85); Total Cells Counted 100
[2019-04-20 06:09] LABS: Microcytosis Slight
[2019-04-20] MEDS: LEVOTHYROXINE 88 MCG TABLET PO SCH (06:14)
[2019-04-20] MEDS: POTASSIUM CHLORIDE RIDER 10 MEQ in PREMIX 1 EACH IV PRN ×3 (06:14→11:58)
[2019-04-20] MEDS: MAGNESIUM SULF RIDER 2 GM in PREMIX 1 EACH IV PRN (06:15)
[2019-04-20] MEDS: BRIMONIDINE 0.15% OPH SOLN 1 DROP/DROPS BOTTLE LEFT EYE SCH ×2 (08:23→20:04)
[2019-04-20] MEDS: FUROSEMIDE 40 MG/4 ML VIAL IV SCH ×2 (08:23→15:39)
[2019-04-20] MEDS: prednisoLONE ACETATE 1% OPH SUSP 5 ML BOTTLE LEFT EYE SCH ×2 (08:23→20:04)
[2019-04-20] MEDS: ASPIRIN CHEW 81 MG TABLET PO SCH (08:23)
[2019-04-20] MEDS: PANTOPRAZOLE 40 MG VIAL IV SCH (08:24)
[2019-04-20] MEDS: VANCOMYCIN INJ 1,250 MG in SODIUM CHLORIDE 0.9% 250 ML IV SCH ×2 (08:36→21:46)
[2019-04-20] MEDS: fentaNYL 12 MCG/HR PATCH TRANSDERM SCH ×2 (08:41→08:47)
[2019-04-20] MEDS: methylPREDNISolone SOD SUC 40 MG/1 ML VIAL IV SCH ×2 (08:41→15:39)
[2019-04-20] MEDS: AMIKACIN IV SCH (09:48)
[2019-04-20] MEDS: SODIUM CHLORIDE 0.9% IV SCH (09:48)
[2019-04-21] MEDS: methylPREDNISolone SOD SUC 40 MG/1 ML VIAL IV SCH ×3 (00:21→15:32)
[2019-04-21] MEDS: ALBUTEROL/IPRATROPIUM 3 ML NEB RESP TX SCH ×4 (00:45→19:35)
[2019-04-21] MEDS: PIPERACILLIN/TAZOBACTAM 3,375 MG in SODIUM CHLORIDE 0.9% 100 ML IV SCH ×3 (03:01→18:16)
[2019-04-21] MEDS: HYDROmorphone 2 MG/1 ML VIAL IV PRN ×5 (05:10→22:05)
[2019-04-21] MEDS: AMIODARONE INJ 450 MG in DEXTROSE 5% 241 ML IV SCH ×3 (05:16→20:50)
[2019-04-21 05:37] LABS: Basophils % 0.1 % (0.0-0.8); Hematocrit 30.8 VOL% (42.0-52.0); Hemoglobin 10.5 GM/DL (14.0-18.0); Immature Granulocytes % 0.7 %; Immature Granulocytes Absolute 0.07 #; Lymphocytes # 0.2 10*3/uL (1.4-4.0); Lymphocytes % 2.2 % (21.2-54.2); Mean Corpuscular HGB Conc 34.1 GM/DL (32-36); Mean Platelet Volume 11.3 FL (9.6-12.0); Monocytes % 4.1 % (1.7-12.7); Neutrophils % 92.9 % (38.7-73.9); Platelet Count 180 T/CUMM (130-400); Red Blood Count 3.54 MC/CUMM (3.8-5.5); Red Cell Distribution Width 14.2 % (9.3-17.3)
[2019-04-21 05:58] LABS: Band Neutrophils 2 % (0-10); Hypochromasia 1+; Lymphocytes 1 % (20-55); Platelet Estimate Adequate; Segmented Neutrophils 96 % (50-85); Total Cells Counted 100
[2019-04-21 05:59] LABS: Microcytosis Slight
[2019-04-21 06:17] LABS: Calcium 8.4 MG/DL (8.5-10.1); Osmolality,Calculated 275.1 MOS/KG (273-304)
[2019-04-21] MEDS: LEVOTHYROXINE 88 MCG TABLET PO SCH (06:28)
[2019-04-21] MEDS: POTASSIUM CHLORIDE RIDER 10 MEQ in PREMIX 1 EACH IV PRN ×3 (06:28→10:54)
[2019-04-21] MEDS ORDERED: METOPROLOL TARTRATE 5 MG/5 ML VIAL IV ONE (07:04)
[2019-04-21] MEDS: METOPROLOL TARTRATE 5 MG/5 ML VIAL IV PRN ×3 (07:29→21:10)
[2019-04-21] MEDS: BRIMONIDINE 0.15% OPH SOLN 1 DROP/DROPS BOTTLE LEFT EYE SCH ×2 (08:16→21:18)
[2019-04-21] MEDS: prednisoLONE ACETATE 1% OPH SUSP 5 ML BOTTLE LEFT EYE SCH ×2 (08:16→21:18)
[2019-04-21] MEDS: ASPIRIN CHEW 81 MG TABLET PO SCH (08:17)
[2019-04-21] MEDS: PANTOPRAZOLE 40 MG VIAL IV SCH (08:17)
[2019-04-21] MEDS: FUROSEMIDE 40 MG/4 ML VIAL IV SCH ×2 (08:17→15:22)
[2019-04-21] MEDS ORDERED: hydrALAZINE 20 MG/1 ML VIAL IV PRN (08:45)
[2019-04-21] MEDS: VANCOMYCIN INJ 1,250 MG in SODIUM CHLORIDE 0.9% 250 ML IV SCH ×2 (08:47→21:15)
[2019-04-21] MEDS: SODIUM CHLORIDE 0.9% IV SCH (10:50)
[2019-04-21] MEDS: AMIKACIN IV SCH (10:50)
[2019-04-21] MEDS: POTASSIUM CHLORIDE 20 MEQ TABLET PO PRN (15:25)
[2019-04-22] MEDS: ALBUTEROL/IPRATROPIUM 3 ML NEB RESP TX SCH ×4 (00:45→19:20)
[2019-04-22] MEDS: methylPREDNISolone SOD SUC 40 MG/1 ML VIAL IV SCH ×3 (00:52→21:58)
[2019-04-22] MEDS: HYDROmorphone 2 MG/1 ML VIAL IV PRN ×2 (01:10→05:45)
[2019-04-22] MEDS: AMIODARONE INJ 450 MG in DEXTROSE 5% 241 ML IV SCH ×2 (02:35→09:49)
[2019-04-22] MEDS: PIPERACILLIN/TAZOBACTAM 3,375 MG in SODIUM CHLORIDE 0.9% 100 ML IV SCH ×3 (02:42→18:58)
[2019-04-22] MEDS: METOPROLOL TARTRATE 5 MG/5 ML VIAL IV PRN (03:07)
[2019-04-22] MEDS: LEVOTHYROXINE 88 MCG TABLET PO SCH (06:23)
[2019-04-22 06:35] LABS: Calcium 8.3 MG/DL (8.5-10.1); Osmolality,Calculated 277.1 MOS/KG (273-304)
[2019-04-22] MEDS: POTASSIUM CHLORIDE RIDER 10 MEQ in PREMIX 1 EACH IV PRN (07:02)
[2019-04-22] MEDS: FUROSEMIDE 40 MG/4 ML VIAL IV SCH (08:20)
[2019-04-22] MEDS: PANTOPRAZOLE 40 MG VIAL IV SCH (08:21)
[2019-04-22] MEDS: VANCOMYCIN INJ 1,250 MG in SODIUM CHLORIDE 0.9% 250 ML IV SCH ×2 (08:22→21:35)
[2019-04-22] MEDS: FUROSEMIDE 40 MG TABLET PO SCH (09:11)
[2019-04-22] MEDS: ASPIRIN CHEW 81 MG TABLET PO SCH (09:11)
[2019-04-22] MEDS: LOSARTAN 50 MG TABLET PO SCH (09:11)
[2019-04-22] MEDS: POTASSIUM CHLORIDE 20 MEQ TABLET PO SCH (09:11)
[2019-04-22] MEDS: METOPROLOL TARTRATE 50 MG TABLET PO SCH ×2 (09:11→20:15)
[2019-04-22] MEDS: prednisoLONE ACETATE 1% OPH SUSP 5 ML BOTTLE LEFT EYE SCH ×2 (09:12→21:21)
[2019-04-22] MEDS: BRIMONIDINE 0.15% OPH SOLN 1 DROP/DROPS BOTTLE LEFT EYE SCH ×2 (09:12→21:21)
[2019-04-22] MEDS: SODIUM CHLORIDE 0.9% IV SCH (09:36)
[2019-04-22] MEDS: AMIKACIN IV SCH (09:36)
[2019-04-22] MEDS: POTASSIUM CHLORIDE 20 MEQ TABLET PO PRN ×2 (11:16→17:07)
[2019-04-22] MEDS: ALPRAZolam 0.25 MG TABLET PO PRN (17:07)
[2019-04-22] MEDS ORDERED: LORazepam 2 MG/1 ML VIAL IV PRN (20:06)
[2019-04-22] MEDS: hydrALAZINE 20 MG/1 ML VIAL IV PRN (23:11)
[2019-04-23] MEDS: ALBUTEROL/IPRATROPIUM 3 ML NEB RESP TX SCH ×4 (01:12→20:18)
[2019-04-23] MEDS: PIPERACILLIN/TAZOBACTAM 3,375 MG in SODIUM CHLORIDE 0.9% 100 ML IV SCH ×3 (03:35→18:29)
[2019-04-23] MEDS: hydrALAZINE 20 MG/1 ML VIAL IV PRN (05:25)
[2019-04-23 05:55] LABS: Basophils % 0.2 % (0.0-0.8); Hematocrit 31.4 VOL% (42.0-52.0); Hemoglobin 10.8 GM/DL (14.0-18.0); Immature Granulocytes % 3.5 %; Immature Granulocytes Absolute 0.54 #; Lymphocytes # 0.5 10*3/uL (1.4-4.0); Lymphocytes % 3.4 % (21.2-54.2); Mean Corpuscular HGB Conc 34.4 GM/DL (32-36); Mean Corpuscular Volume 85.6 FL (87-102); Mean Platelet Volume 10.4 FL (9.6-12.0); Monocytes % 7.8 % (1.7-12.7); Neutrophils % 85.1 % (38.7-73.9); Platelet Count 269 T/CUMM (130-400); Red Blood Count 3.67 MC/CUMM (3.8-5.5); Red Cell Distribution Width 14.5 % (9.3-17.3); White Blood Count 15.4 T/CUMM (4-12)
[2019-04-23 06:06] LABS: Calcium 8.6 MG/DL (8.5-10.1); Osmolality,Calculated 283.8 MOS/KG (273-304)
[2019-04-23] MEDS: LEVOTHYROXINE 88 MCG TABLET PO SCH (06:12)
[2019-04-23 07:14] LABS: Band Neutrophils 3 % (0-10); Hypochromasia 1+; Lymphocytes 3 % (20-55); Platelet Estimate Normal; Segmented Neutrophils 87 % (50-85); Total Cells Counted 100
[2019-04-23] MEDS: AMIODARONE INJ 450 MG in DEXTROSE 5% 241 ML IV SCH (07:32)
[2019-04-23] MEDS: methylPREDNISolone SOD SUC 40 MG/1 ML VIAL IV SCH ×2 (08:58→20:18)
[2019-04-23] MEDS: POTASSIUM CHLORIDE 20 MEQ TABLET PO SCH (08:58)
[2019-04-23] MEDS: METOPROLOL TARTRATE 50 MG TABLET PO SCH ×2 (08:58→20:17)
[2019-04-23] MEDS: PANTOPRAZOLE 40 MG VIAL IV SCH (08:58)
[2019-04-23] MEDS: SODIUM CHLORIDE 0.9% IV SCH (08:59)
[2019-04-23] MEDS: fentaNYL 12 MCG/HR PATCH TRANSDERM SCH (08:59)
[2019-04-23] MEDS: AMIODARONE 200 MG TABLET PO SCH ×2 (08:59→20:17)
[2019-04-23] MEDS: AMIKACIN IV SCH (08:59)
[2019-04-23] MEDS: FUROSEMIDE 40 MG TABLET PO SCH (08:59)
[2019-04-23] MEDS: LOSARTAN 50 MG TABLET PO SCH (08:59)
[2019-04-23] MEDS: ASPIRIN CHEW 81 MG TABLET PO SCH (08:59)
[2019-04-23] MEDS: BRIMONIDINE 0.15% OPH SOLN 1 DROP/DROPS BOTTLE LEFT EYE SCH ×2 (09:12→20:18)
[2019-04-23] MEDS: prednisoLONE ACETATE 1% OPH SUSP 5 ML BOTTLE LEFT EYE SCH ×2 (09:13→20:18)
[2019-04-23] MEDS ORDERED: LOSARTAN 50 MG TABLET PO ONE (09:59)
[2019-04-23] MEDS ORDERED: POTASSIUM CHLORIDE 20 MEQ TABLET PO ONE (10:07)
[2019-04-23] MEDS ORDERED: HALOPERIDOL 5 MG/ML AMP IM PRN (10:26)
[2019-04-23] MEDS: amLODIPine 5 MG TABLET PO SCH (10:31)
[2019-04-23] MEDS: HYDROmorphone 2 MG/1 ML VIAL IV PRN (16:48)
[2019-04-23] MEDS: ROSUVASTATIN 20 MG TABLET PO SCH (20:17)
[2019-04-23] MEDS: MORPHINE 4 MG/1 ML VIAL IV PRN (21:28)
[2019-04-24] MEDS: ALBUTEROL/IPRATROPIUM 3 ML NEB RESP TX SCH ×4 (01:08→18:53)
[2019-04-24] MEDS: HYDROmorphone 2 MG/1 ML VIAL IV PRN (02:51)
[2019-04-24] MEDS: hydrALAZINE 20 MG/1 ML VIAL IV PRN (04:35)
[2019-04-24 05:08] LABS: Basophils % 0.1 % (0.0-0.8); Hematocrit 30.8 VOL% (42.0-52.0); Hemoglobin 10.4 GM/DL (14.0-18.0); Immature Granulocytes % 5.3 %; Immature Granulocytes Absolute 0.72 #; Lymphocytes # 0.6 10*3/uL (1.4-4.0); Lymphocytes % 4.3 % (21.2-54.2); Mean Corpuscular HGB Conc 33.8 GM/DL (32-36); Mean Platelet Volume 9.9 FL (9.6-12.0); Monocytes % 8.5 % (1.7-12.7); Neutrophils % 81.8 % (38.7-73.9); Platelet Count 213 T/CUMM (130-400); Red Cell Distribution Width 14.6 % (9.3-17.3); White Blood Count 13.6 T/CUMM (4-12)
[2019-04-24 05:50] LABS: Hypochromasia 1+; Lymphocytes 4 % (20-55); Microcytosis Slight; Myelocytes 1 %; Segmented Neutrophils 93 % (50-85); Total Cells Counted 100
[2019-04-24 05:51] LABS: Platelet Estimate Normal
[2019-04-24 06:00] LABS: Calcium 8.6 MG/DL (8.5-10.1); Osmolality,Calculated 291.4 MOS/KG (273-304)
[2019-04-24] MEDS: LEVOTHYROXINE 88 MCG TABLET PO SCH (06:14)
[2019-04-24] MEDS: prednisoLONE ACETATE 1% OPH SUSP 5 ML BOTTLE LEFT EYE SCH ×2 (11:05→20:36)
[2019-04-24] MEDS: BRIMONIDINE 0.15% OPH SOLN 1 DROP/DROPS BOTTLE LEFT EYE SCH ×2 (11:05→20:36)
[2019-04-24] MEDS: FUROSEMIDE 40 MG TABLET PO SCH (11:07)
[2019-04-24] MEDS: amLODIPine 5 MG TABLET PO SCH (11:07)
[2019-04-24] MEDS: LOSARTAN 50 MG TABLET PO SCH (11:07)
[2019-04-24] MEDS: ASPIRIN CHEW 81 MG TABLET PO SCH (11:07)
[2019-04-24] MEDS: POTASSIUM CHLORIDE 20 MEQ TABLET PO SCH (11:08)
[2019-04-24] MEDS: METOPROLOL TARTRATE 50 MG TABLET PO SCH ×2 (11:08→20:35)
[2019-04-24] MEDS: PANTOPRAZOLE 40 MG VIAL IV SCH (11:08)
[2019-04-24] MEDS: AMIODARONE 200 MG TABLET PO SCH ×2 (11:08→20:34)
[2019-04-24] MEDS: methylPREDNISolone SOD SUC 40 MG/1 ML VIAL IV SCH (11:09)
[2019-04-24] MEDS: HYDROmorphone 2 MG/1 ML VIAL IM PRN ×2 (16:06→20:33)
[2019-04-24] MEDS: ROSUVASTATIN 20 MG TABLET PO SCH (20:34)
[2019-04-24] MEDS ORDERED: SODIUM CHLORIDE 0.9% IV SCH (21:00)
[2019-04-24] MEDS: PIPERACILLIN/TAZOBACTAM 3,375 MG in SODIUM CHLORIDE 0.9% 100 ML IV SCH (21:00)
[2019-04-24] MEDS ORDERED: AMIKACIN IV SCH (21:00)
[2019-04-25] MEDS: HYDROmorphone 2 MG/1 ML VIAL IM PRN ×4 (00:40→21:06)
[2019-04-25] MEDS: ALBUTEROL/IPRATROPIUM 3 ML NEB RESP TX SCH ×4 (00:46→19:59)
[2019-04-25 05:11] LABS: Basophils % 0.1 % (0.0-0.8); Eosinophils # 0.2 10*3/uL (0.0-0.87); Eosinophils % 1.5 % (0.00-10.9); Hematocrit 26.6 VOL% (42.0-52.0); Hemoglobin 8.7 GM/DL (14.0-18.0); Immature Granulocytes % 2.3 %; Immature Granulocytes Absolute 0.25 #; Lymphocytes # 0.5 10*3/uL (1.4-4.0); Lymphocytes % 4.7 % (21.2-54.2); Mean Corpuscular HGB Conc 32.7 GM/DL (32-36); Mean Corpuscular Volume 90.8 FL (87-102); Mean Platelet Volume 10.3 FL (9.6-12.0); Monocytes % 3.7 % (1.7-12.7); Neutrophils % 87.7 % (38.7-73.9); Platelet Count 174 T/CUMM (130-400); Red Blood Count 2.93 MC/CUMM (3.8-5.5); Red Cell Distribution Width 14.9 % (9.3-17.3); White Blood Count 10.9 T/CUMM (4-12)
[2019-04-25] MEDS: PIPERACILLIN/TAZOBACTAM 3,375 MG in SODIUM CHLORIDE 0.9% 100 ML IV SCH ×3 (05:17→23:45)
[2019-04-25 05:44] LABS: Calcium 8.4 MG/DL (8.5-10.1); Osmolality,Calculated 294.3 MOS/KG (273-304)
[2019-04-25 05:45] LABS: Band Neutrophils 3 % (0-10); Eosinophils 1 % (0-10); Lymphocytes 5 % (20-55); Segmented Neutrophils 86 % (50-85); Total Cells Counted 100
[2019-04-25 05:46] LABS: Hypochromasia 2+; Platelet Estimate Normal
[2019-04-25] MEDS: LEVOTHYROXINE 88 MCG TABLET PO SCH (08:47)
[2019-04-25] MEDS ORDERED: predniSONE 20 MG TABLET PO SCH (09:00)
[2019-04-25] MEDS: amLODIPine 5 MG TABLET PO SCH (09:02)
[2019-04-25] MEDS: POTASSIUM CHLORIDE 20 MEQ TABLET PO SCH (09:04)
[2019-04-25] MEDS: AMIODARONE 200 MG TABLET PO SCH ×2 (09:04→21:17)
[2019-04-25] MEDS: PANTOPRAZOLE 40 MG TABLET PO SCH (09:04)
[2019-04-25] MEDS: prednisoLONE ACETATE 1% OPH SUSP 5 ML BOTTLE LEFT EYE SCH ×2 (09:05→21:24)
[2019-04-25] MEDS: HYDROcod/ACETAMIN 7.5-325 MG/15 ML UDCUP PO PRN (09:05)
[2019-04-25] MEDS: FUROSEMIDE 20 MG TABLET PO SCH (09:05)
[2019-04-25] MEDS: LOSARTAN 50 MG TABLET PO SCH (09:05)
[2019-04-25] MEDS: METOPROLOL TARTRATE 50 MG TABLET PO SCH ×2 (09:05→21:15)
[2019-04-25] MEDS: ASPIRIN CHEW 81 MG TABLET PO SCH (09:05)
[2019-04-25] MEDS: DOCUSATE SODIUM 100 MG/10 ML UDCUP PO SCH ×2 (09:05→21:08)
[2019-04-25] MEDS: BRIMONIDINE 0.15% OPH SOLN 1 DROP/DROPS BOTTLE LEFT EYE SCH ×2 (09:06→21:23)
[2019-04-25] MEDS ORDERED: TUBERCULIN SKIN TEST 0.1 ML SYRINGE INTRADERM ONE (09:54)
[2019-04-25] MEDS: ROSUVASTATIN 20 MG TABLET PO SCH (21:08)
[2019-04-26] MEDS: ALBUTEROL/IPRATROPIUM 3 ML NEB RESP TX SCH ×4 (00:29→20:27)
[2019-04-26] MEDS: HYDROmorphone 2 MG/1 ML VIAL IM PRN (05:25)
[2019-04-26 05:50] LABS: Basophils % 0.1 % (0.0-0.8); Eosinophils # 0.7 10*3/uL (0.0-0.87); Eosinophils % 4.8 % (0.00-10.9); Hematocrit 28.3 VOL% (42.0-52.0); Hemoglobin 9.1 GM/DL (14.0-18.0); Lymphocytes # 0.4 10*3/uL (1.4-4.0); Mean Corpuscular HGB Conc 32.2 GM/DL (32-36); Mean Corpuscular Volume 91.9 FL (87-102); Mean Platelet Volume 10.6 FL (9.6-12.0); Monocytes % 2.8 % (1.7-12.7); Neutrophils % 87.3 % (38.7-73.9); Platelet Count 170 T/CUMM (130-400); Red Blood Count 3.08 MC/CUMM (3.8-5.5); Red Cell Distribution Width 14.9 % (9.3-17.3); White Blood Count 14.9 T/CUMM (4-12)
[2019-04-26] MEDS: LEVOTHYROXINE 88 MCG TABLET PO SCH (06:17)
[2019-04-26 06:18] LABS: Eosinophils 6 % (0-10); Lymphocytes 4 % (20-55); Platelet Estimate Adequate; Segmented Neutrophils 89 % (50-85); Total Cells Counted 100
[2019-04-26 06:19] LABS: Hypochromasia 1+; Ovalocytes Slight
[2019-04-26] MEDS: PIPERACILLIN/TAZOBACTAM 3,375 MG in SODIUM CHLORIDE 0.9% 100 ML IV SCH ×2 (08:07→16:57)
[2019-04-26] MEDS: DOCUSATE SODIUM 100 MG/10 ML UDCUP PO SCH ×2 (08:08→20:52)
[2019-04-26] MEDS: METOPROLOL TARTRATE 50 MG TABLET PO SCH ×2 (08:08→20:52)
[2019-04-26] MEDS: PANTOPRAZOLE 40 MG TABLET PO SCH (08:08)
[2019-04-26] MEDS: AMIODARONE 200 MG TABLET PO SCH ×2 (08:08→20:52)
[2019-04-26] MEDS: FUROSEMIDE 20 MG TABLET PO SCH (08:09)
[2019-04-26] MEDS: LOSARTAN 50 MG TABLET PO SCH (08:10)
[2019-04-26] MEDS: POTASSIUM CHLORIDE 20 MEQ TABLET PO SCH ×2 (08:10→08:13)
[2019-04-26] MEDS: BRIMONIDINE 0.15% OPH SOLN 1 DROP/DROPS BOTTLE LEFT EYE SCH ×2 (08:10→20:53)
[2019-04-26] MEDS: ASPIRIN CHEW 81 MG TABLET PO SCH (08:10)
[2019-04-26] MEDS: amLODIPine 5 MG TABLET PO SCH (08:11)
[2019-04-26] MEDS: prednisoLONE ACETATE 1% OPH SUSP 5 ML BOTTLE LEFT EYE SCH ×2 (08:11→20:52)
[2019-04-26] MEDS: ALBUTEROL/IPRATROPIUM 3 ML NEB RESP TX PRN (11:28)
[2019-04-26] MEDS: SERTRALINE 25 MG TABLET PO SCH (13:07)
[2019-04-26] MEDS ORDERED: SODIUM CHLORIDE 0.65% NASAL SPRAY 45 ML BOTTLE BOTH NARES PRN (15:03)
[2019-04-26] MEDS: HYDROmorphone 2 MG/1 ML VIAL IV PRN ×2 (16:57→21:10)
[2019-04-26] MEDS: ROSUVASTATIN 20 MG TABLET PO SCH (20:52)
[2019-04-27] MEDS: ALBUTEROL/IPRATROPIUM 3 ML NEB RESP TX SCH ×4 (01:05→20:15)
[2019-04-27] MEDS: HYDROmorphone 2 MG/1 ML VIAL IV PRN ×4 (04:57→22:10)
[2019-04-27] MEDS: ONDANSETRON 4 MG/2 ML VIAL IV PRN (05:05)
[2019-04-27] MEDS: LEVOTHYROXINE 88 MCG TABLET PO SCH (07:31)
[2019-04-27 07:32] LABS: Basophils % 0.1 % (0.0-0.8); Eosinophils # 0.7 10*3/uL (0.0-0.87); Eosinophils % 4.2 % (0.00-10.9); Hematocrit 25.5 VOL% (42.0-52.0); Hemoglobin 8.3 GM/DL (14.0-18.0); Immature Granulocytes % 1.6 %; Immature Granulocytes Absolute 0.28 #; Lymphocytes # 0.5 10*3/uL (1.4-4.0); Lymphocytes % 2.7 % (21.2-54.2); Mean Corpuscular HGB Conc 32.5 GM/DL (32-36); Mean Corpuscular Volume 91.1 FL (87-102); Mean Platelet Volume 10.8 FL (9.6-12.0); Monocytes % 3.2 % (1.7-12.7); Neutrophils % 88.2 % (38.7-73.9); Platelet Count 185 T/CUMM (130-400); Red Cell Distribution Width 14.7 % (9.3-17.3); White Blood Count 17.8 T/CUMM (4-12)
[2019-04-27 07:51] LABS: Calcium 7.9 MG/DL (8.5-10.1); Osmolality,Calculated 285.5 MOS/KG (273-304)
[2019-04-27 07:53] LABS: Eosinophils 2 % (0-10); Hypochromasia 1+; Lymphocytes 2 % (20-55); Platelet Estimate Adequate; Segmented Neutrophils 94 % (50-85); Total Cells Counted 100
[2019-04-27] MEDS: POTASSIUM CHLORIDE 20 MEQ TABLET PO SCH (10:30)
[2019-04-27] MEDS: LOSARTAN 50 MG TABLET PO SCH (10:30)
[2019-04-27] MEDS: PANTOPRAZOLE 40 MG TABLET PO SCH (10:30)
[2019-04-27] MEDS: DOCUSATE SODIUM 100 MG/10 ML UDCUP PO SCH ×2 (10:30→21:22)
[2019-04-27] MEDS: ASPIRIN CHEW 81 MG TABLET PO SCH (10:30)
[2019-04-27] MEDS: FUROSEMIDE 20 MG TABLET PO SCH (10:31)
[2019-04-27] MEDS: amLODIPine 5 MG TABLET PO SCH (10:31)
[2019-04-27] MEDS: METOPROLOL TARTRATE 50 MG TABLET PO SCH ×2 (10:31→21:21)
[2019-04-27] MEDS: AMIODARONE 200 MG TABLET PO SCH ×2 (10:31→21:22)
[2019-04-27] MEDS: SERTRALINE 25 MG TABLET PO SCH (10:31)
[2019-04-27] MEDS: prednisoLONE ACETATE 1% OPH SUSP 5 ML BOTTLE LEFT EYE SCH ×2 (10:33→21:23)
[2019-04-27] MEDS: BRIMONIDINE 0.15% OPH SOLN 1 DROP/DROPS BOTTLE LEFT EYE SCH ×2 (10:34→21:23)
[2019-04-27] MEDS: VANCOMYCIN INJ 1,250 MG in SODIUM CHLORIDE 0.9% 250 ML IV SCH (14:38)
[2019-04-27] MEDS: PIPERACILLIN/TAZOBACTAM 3,375 MG in SODIUM CHLORIDE 0.9% 100 ML IV SCH ×2 (16:41→23:18)
[2019-04-27] MEDS: ROSUVASTATIN 20 MG TABLET PO SCH (21:22)
[2019-04-27] MEDS ORDERED: SIMETHICONE CHEW 80 MG TABLET PO ONE (22:45)
[2019-04-28] MEDS: ALBUTEROL/IPRATROPIUM 3 ML NEB RESP TX SCH ×4 (00:50→20:00)
[2019-04-28] MEDS: VANCOMYCIN INJ 1,250 MG in SODIUM CHLORIDE 0.9% 250 ML IV SCH (03:07)
[2019-04-28] MEDS: HYDROmorphone 2 MG/1 ML VIAL IV PRN ×3 (04:37→15:52)
[2019-04-28 05:41] LABS: Basophils % 0.1 % (0.0-0.8); Eosinophils % 5.4 % (0.00-10.9); Hemoglobin 8.4 GM/DL (14.0-18.0); Immature Granulocytes % 1.4 %; Immature Granulocytes Absolute 0.25 #; Lymphocytes # 0.4 10*3/uL (1.4-4.0); Lymphocytes % 2.3 % (21.2-54.2); Mean Corpuscular HGB Conc 32.3 GM/DL (32-36); Mean Corpuscular Volume 91.9 FL (87-102); Mean Platelet Volume 10.7 FL (9.6-12.0); Monocytes % 3.6 % (1.7-12.7); Neutrophils % 87.2 % (38.7-73.9); Platelet Count 214 T/CUMM (130-400); Red Blood Count 2.83 MC/CUMM (3.8-5.5); Red Cell Distribution Width 14.6 % (9.3-17.3)
[2019-04-28 06:03] LABS: Eosinophils 2 % (0-10); Hypochromasia 1+; Lymphocytes 2 % (20-55); Segmented Neutrophils 95 % (50-85); Total Cells Counted 100
[2019-04-28 06:04] LABS: Microcytosis Slight; Ovalocytes Slight; Platelet Estimate Normal
[2019-04-28] MEDS: LEVOTHYROXINE 88 MCG TABLET PO SCH (06:17)
[2019-04-28] MEDS: DOCUSATE SODIUM 100 MG/10 ML UDCUP PO SCH ×2 (09:01→21:45)
[2019-04-28] MEDS: POLYETHYLENE GLYCOL POWDER 17 GM PACK PO SCH (09:01)
[2019-04-28] MEDS: ASPIRIN CHEW 81 MG TABLET PO SCH (09:01)
[2019-04-28] MEDS: LOSARTAN 50 MG TABLET PO SCH (09:01)
[2019-04-28] MEDS: POTASSIUM CHLORIDE 20 MEQ TABLET PO SCH (09:01)
[2019-04-28] MEDS: amLODIPine 5 MG TABLET PO SCH (09:02)
[2019-04-28] MEDS: SERTRALINE 25 MG TABLET PO SCH (09:02)
[2019-04-28] MEDS: AMIODARONE 200 MG TABLET PO SCH ×2 (09:02→21:45)
[2019-04-28] MEDS: FUROSEMIDE 20 MG TABLET PO SCH (09:02)
[2019-04-28] MEDS: PANTOPRAZOLE 40 MG TABLET PO SCH (09:02)
[2019-04-28] MEDS: METOPROLOL TARTRATE 50 MG TABLET PO SCH ×2 (09:02→21:48)
[2019-04-28] MEDS: PIPERACILLIN/TAZOBACTAM 3,375 MG in SODIUM CHLORIDE 0.9% 100 ML IV SCH ×2 (09:14→15:55)
[2019-04-28] MEDS: prednisoLONE ACETATE 1% OPH SUSP 5 ML BOTTLE LEFT EYE SCH ×2 (09:19→21:48)
[2019-04-28] MEDS: BRIMONIDINE 0.15% OPH SOLN 1 DROP/DROPS BOTTLE LEFT EYE SCH ×2 (09:19→21:48)
[2019-04-28] MEDS: ONDANSETRON 4 MG/2 ML VIAL IV PRN ×2 (11:51→22:47)
[2019-04-28] MEDS ORDERED: SODIUM CHLORIDE 0.9% 500 ML IV ONE (17:24)
[2019-04-28] MEDS: SODIUM CHLORIDE 0.9% 1,000 ML IV SCH (18:28)
[2019-04-28] MEDS: ROSUVASTATIN 20 MG TABLET PO SCH (21:45)
[2019-04-29] MEDS: ALBUTEROL/IPRATROPIUM 3 ML NEB RESP TX SCH ×4 (01:00→20:12)
[2019-04-29] MEDS: PIPERACILLIN/TAZOBACTAM 3,375 MG in SODIUM CHLORIDE 0.9% 100 ML IV SCH ×3 (01:13→17:22)
[2019-04-29] MEDS: MORPHINE 4 MG/1 ML VIAL IV PRN (02:26)
[2019-04-29 05:04] LABS: Basophils % 0.1 % (0.0-0.8); Eosinophils # 0.7 10*3/uL (0.0-0.87); Eosinophils % 4.1 % (0.00-10.9); Hematocrit 24.4 VOL% (42.0-52.0); Hemoglobin 7.8 GM/DL (14.0-18.0); Immature Granulocytes Absolute 0.19 #; Lymphocytes # 0.3 10*3/uL (1.4-4.0); Lymphocytes % 1.8 % (21.2-54.2); Mean Corpuscular Volume 93.8 FL (87-102); Mean Platelet Volume 10.3 FL (9.6-12.0); Platelet Count 213 T/CUMM (130-400); Red Cell Distribution Width 14.7 % (9.3-17.3); White Blood Count 18.2 T/CUMM (4-12)
[2019-04-29 05:36] LABS: Eosinophils 7 % (0-10); Hypochromasia 1+; Lymphocytes 2 % (20-55); Microcytosis Slight; Platelet Estimate Adequate; Segmented Neutrophils 90 % (50-85); Total Cells Counted 100
[2019-04-29] MEDS: ONDANSETRON 4 MG/2 ML VIAL IV PRN (05:39)
[2019-04-29] MEDS: HYDROmorphone 2 MG/1 ML VIAL IV PRN ×3 (05:41→17:22)
[2019-04-29] MEDS: FUROSEMIDE 20 MG TABLET PO SCH (09:40)
[2019-04-29] MEDS: LOSARTAN 50 MG TABLET PO SCH (09:40)
[2019-04-29] MEDS: AMIODARONE 200 MG TABLET PO SCH ×3 (09:40→20:33)
[2019-04-29] MEDS: PANTOPRAZOLE 40 MG TABLET PO SCH (09:40)
[2019-04-29] MEDS: amLODIPine 5 MG TABLET PO SCH (09:40)
[2019-04-29] MEDS: VANCOMYCIN INJ 1,250 MG in SODIUM CHLORIDE 0.9% 250 ML IV SCH (09:40)
[2019-04-29] MEDS: DOCUSATE SODIUM 100 MG/10 ML UDCUP PO SCH ×2 (09:41→19:59)
[2019-04-29] MEDS: ASPIRIN CHEW 81 MG TABLET PO SCH (09:41)
[2019-04-29] MEDS: POLYETHYLENE GLYCOL POWDER 17 GM PACK PO SCH (09:41)
[2019-04-29] MEDS: SERTRALINE 25 MG TABLET PO SCH (09:41)
[2019-04-29] MEDS: METOPROLOL TARTRATE 50 MG TABLET PO SCH ×3 (09:41→20:33)
[2019-04-29] MEDS: BRIMONIDINE 0.15% OPH SOLN 1 DROP/DROPS BOTTLE LEFT EYE SCH ×2 (09:42→19:59)
[2019-04-29] MEDS: prednisoLONE ACETATE 1% OPH SUSP 5 ML BOTTLE LEFT EYE SCH ×2 (09:42→19:59)
[2019-04-29] MEDS: POTASSIUM CHLORIDE 20 MEQ TABLET PO SCH (09:42)
[2019-04-29] MEDS: LEVOTHYROXINE 88 MCG TABLET PO SCH (09:53)
[2019-04-29] MEDS: SODIUM CHLORIDE 0.9% 1,000 ML IV SCH ×2 (09:53→22:57)
[2019-04-29] MEDS: HYDROCORTISONE 1% CREAM 28 GM TUBE TOP PRN (15:53)
[2019-04-29] MEDS: ROSUVASTATIN 20 MG TABLET PO SCH ×2 (19:50→20:33)
[2019-04-29] MEDS: HYDROcod/ACETAMIN 7.5-325 MG/15 ML UDCUP PO PRN (19:51)
[2019-04-30] MEDS: PIPERACILLIN/TAZOBACTAM 3,375 MG in SODIUM CHLORIDE 0.9% 100 ML IV SCH ×4 (00:08→23:55)
[2019-04-30] MEDS: ALBUTEROL/IPRATROPIUM 3 ML NEB RESP TX SCH ×4 (00:38→19:33)
[2019-04-30 05:38] LABS: Basophils % 0.1 % (0.0-0.8); Eosinophils # 1.4 10*3/uL (0.0-0.87); Eosinophils % 7.2 % (0.00-10.9); Hematocrit 24.1 VOL% (42.0-52.0); Hemoglobin 7.7 GM/DL (14.0-18.0); Immature Granulocytes % 1.1 %; Immature Granulocytes Absolute 0.21 #; Lymphocytes # 0.4 10*3/uL (1.4-4.0); Lymphocytes % 1.9 % (21.2-54.2); Mean Corpuscular Volume 93.8 FL (87-102); Mean Platelet Volume 10.7 FL (9.6-12.0); Monocytes % 5.2 % (1.7-12.7); Neutrophils % 84.5 % (38.7-73.9); Platelet Count 222 T/CUMM (130-400); Red Blood Count 2.57 MC/CUMM (3.8-5.5); Red Cell Distribution Width 14.7 % (9.3-17.3); White Blood Count 19.9 T/CUMM (4-12)
[2019-04-30 06:03] LABS: Calcium 7.6 MG/DL (8.5-10.1); Osmolality,Calculated 284.4 MOS/KG (273-304)
[2019-04-30 06:15] LABS: Band Neutrophils 1 % (0-10); Eosinophils 5 % (0-10); Segmented Neutrophils 90 % (50-85); Total Cells Counted 100
[2019-04-30 06:17] LABS: Anisocytosis 1+; Hypochromasia 1+; Platelet Estimate Normal
[2019-04-30] MEDS: LEVOTHYROXINE 88 MCG TABLET PO SCH (06:31)
[2019-04-30] MEDS: POLYETHYLENE GLYCOL POWDER 17 GM PACK PO SCH (08:02)
[2019-04-30] MEDS: DOCUSATE SODIUM 100 MG/10 ML UDCUP PO SCH ×2 (09:02→21:19)
[2019-04-30] MEDS: SERTRALINE 25 MG TABLET PO SCH (09:04)
[2019-04-30] MEDS: METOPROLOL TARTRATE 50 MG TABLET PO SCH ×2 (09:05→21:19)
[2019-04-30] MEDS: ASPIRIN CHEW 81 MG TABLET PO SCH (09:05)
[2019-04-30] MEDS: PANTOPRAZOLE 40 MG TABLET PO SCH (09:05)
[2019-04-30] MEDS: amLODIPine 5 MG TABLET PO SCH (09:05)
[2019-04-30] MEDS: FUROSEMIDE 20 MG TABLET PO SCH (09:05)
[2019-04-30] MEDS: LOSARTAN 50 MG TABLET PO SCH (09:05)
[2019-04-30] MEDS: HYDROCORTISONE 1% CREAM 28 GM TUBE TOP PRN (09:08)
[2019-04-30] MEDS: BRIMONIDINE 0.15% OPH SOLN 1 DROP/DROPS BOTTLE LEFT EYE SCH ×2 (09:17→21:23)
[2019-04-30] MEDS: prednisoLONE ACETATE 1% OPH SUSP 5 ML BOTTLE LEFT EYE SCH ×2 (09:17→21:23)
[2019-04-30] MEDS: HYDROcod/ACETAMIN 7.5-325 MG/15 ML UDCUP PO PRN (10:25)
[2019-04-30] MEDS: POTASSIUM CHLORIDE 20 MEQ TABLET PO SCH (11:30)
[2019-04-30] MEDS: VANCOMYCIN INJ 1,250 MG in SODIUM CHLORIDE 0.9% 250 ML IV SCH (12:10)
[2019-04-30] MEDS: NYSTATIN POWDER 15 GM BOTTLE TOP SCH ×2 (15:16→21:24)
[2019-04-30] MEDS: ONDANSETRON 4 MG/2 ML VIAL IV PRN ×2 (16:17→21:18)
[2019-04-30] MEDS ORDERED: PROMETHAZINE 25 MG/1 ML VIAL IM ONE (18:41)
[2019-04-30] MEDS: ROSUVASTATIN 20 MG TABLET PO SCH (21:19)
[2019-04-30] MEDS: AMIODARONE 200 MG TABLET PO SCH (21:19)
[2019-04-30] MEDS: SODIUM CHLORIDE 0.9% 1,000 ML IV SCH (21:20)
[2019-05-01] MEDS: ALBUTEROL/IPRATROPIUM 3 ML NEB RESP TX SCH ×4 (00:46→19:26)
[2019-05-01] MEDS: ALBUTEROL/IPRATROPIUM 3 ML NEB RESP TX PRN (04:58)
[2019-05-01 05:21] LABS: Basophils % 0.1 % (0.0-0.8); Eosinophils # 1.1 10*3/uL (0.0-0.87); Eosinophils % 5.7 % (0.00-10.9); Hematocrit 24.3 VOL% (42.0-52.0); Hemoglobin 7.9 GM/DL (14.0-18.0); Immature Granulocytes % 0.8 %; Immature Granulocytes Absolute 0.16 #; Lymphocytes # 0.3 10*3/uL (1.4-4.0); Lymphocytes % 1.3 % (21.2-54.2); Mean Corpuscular HGB Conc 32.5 GM/DL (32-36); Mean Corpuscular Volume 91.7 FL (87-102); Mean Platelet Volume 10.9 FL (9.6-12.0); Monocytes % 5.4 % (1.7-12.7); Neutrophils % 86.7 % (38.7-73.9); Platelet Count 254 T/CUMM (130-400); Red Blood Count 2.65 MC/CUMM (3.8-5.5); Red Cell Distribution Width 14.7 % (9.3-17.3); White Blood Count 19.4 T/CUMM (4-12)
[2019-05-01 05:40] LABS: Calcium 7.9 MG/DL (8.5-10.1); Osmolality,Calculated 283.4 MOS/KG (273-304)
[2019-05-01 06:08] LABS: Anisocytosis 1+; Eosinophils 8 % (0-10); Hypochromasia 1+; Lymphocytes 3 % (20-55); Segmented Neutrophils 85 % (50-85); Total Cells Counted 100
[2019-05-01 06:09] LABS: Platelet Estimate Adequate
[2019-05-01] MEDS: SODIUM CHLORIDE 0.9% 1,000 ML IV SCH ×2 (06:25→19:00)
[2019-05-01] MEDS: LEVOTHYROXINE 88 MCG TABLET PO SCH (06:29)
[2019-05-01] MEDS ORDERED: MAGNESIUM SULF RIDER 2 GM in PREMIX 1 EACH IV ONE (07:54)
[2019-05-01] MEDS: DORNASE ALFA 2.5 MG/2.5 ML VIAL RESP TX SCH ×2 (08:00→19:26)
[2019-05-01] MEDS: ONDANSETRON 4 MG/2 ML VIAL IV PRN ×2 (08:25→18:05)
[2019-05-01] MEDS: SERTRALINE 25 MG TABLET PO SCH (08:32)
[2019-05-01] MEDS: PANTOPRAZOLE 40 MG TABLET PO SCH ×2 (08:33→10:00)
[2019-05-01] MEDS: ASPIRIN CHEW 81 MG TABLET PO SCH (08:33)
[2019-05-01] MEDS: LOSARTAN 50 MG TABLET PO SCH (08:33)
[2019-05-01] MEDS: AMIODARONE 200 MG TABLET PO SCH ×2 (08:33→10:00)
[2019-05-01] MEDS: amLODIPine 5 MG TABLET PO SCH ×2 (08:33→10:00)
[2019-05-01] MEDS: DOCUSATE SODIUM 100 MG/10 ML UDCUP PO SCH ×2 (08:39→21:55)
[2019-05-01] MEDS: NYSTATIN POWDER 15 GM BOTTLE TOP SCH ×3 (08:40→21:55)
[2019-05-01] MEDS: prednisoLONE ACETATE 1% OPH SUSP 5 ML BOTTLE LEFT EYE SCH ×2 (08:41→21:55)
[2019-05-01] MEDS: BRIMONIDINE 0.15% OPH SOLN 1 DROP/DROPS BOTTLE LEFT EYE SCH ×2 (08:41→21:55)
[2019-05-01] MEDS: POTASSIUM CHLORIDE 20 MEQ TABLET PO SCH (08:41)
[2019-05-01] MEDS: POLYETHYLENE GLYCOL POWDER 17 GM PACK PO SCH (08:41)
[2019-05-01 09:14] LABS: ABG Base Excess 4.2 MMOL/L (-2.5-2.5); ABG HCO3 28.2 MMOL/L (20-26); ABG Oxygen Saturation 95.6 % (95-100); ABG PCO2 44.1 MM HG (35-48); ABG PH 7.427 (7.35-7.45); ABG PO2 72.5 MM HG (80-95); Allen Test Positive
[2019-05-01] MEDS: HYDROmorphone 2 MG/1 ML VIAL IV PRN ×2 (10:38→18:02)
[2019-05-01] MEDS: PIPERACILLIN/TAZOBACTAM 3,375 MG in SODIUM CHLORIDE 0.9% 100 ML IV SCH ×2 (11:24→18:05)
[2019-05-01 14:28] LABS: Apearance,Urine CLEAR (Clear); Bilirubin,Urine Negative (Negative); Blood, Urine Moderate mg/dL (Negative); Glucose,Urine (UA) Negative (Negative); Ketones,Urine 5 mg/dL (Negative); Nitrite,Urine Negative (Negative); Protein,Urine Negative; RBC,Urine 7 /HPF (0-4); Urine Color Yellow (Yellow); Urine Specific Gravity > 1.060 (1.001-1.035); Urine Urobilinogen < 2.0 EU/DL (0.2-1.0); WBC,Urine 5 /HPF (0-6)
[2019-05-01] MEDS: FUROSEMIDE 20 MG TABLET PO SCH (14:31)
[2019-05-01] MEDS: METOPROLOL TARTRATE 50 MG TABLET PO SCH ×2 (14:31→21:55)
[2019-05-01] MEDS: diphenhydrAMINE CAP 25 MG CAPSULE PO PRN ×2 (14:45→22:55)
[2019-05-01] MEDS: VANCOMYCIN INJ 1,250 MG in SODIUM CHLORIDE 0.9% 250 ML IV SCH (19:00)
[2019-05-01] MEDS: ROSUVASTATIN 20 MG TABLET PO SCH (21:55)
[2019-05-02] MEDS: ALBUTEROL/IPRATROPIUM 3 ML NEB RESP TX SCH ×4 (00:20→19:08)
[2019-05-02] MEDS: PIPERACILLIN/TAZOBACTAM 3,375 MG in SODIUM CHLORIDE 0.9% 100 ML IV SCH (02:12)
[2019-05-02] MEDS: ONDANSETRON 4 MG/2 ML VIAL IV PRN (02:44)
[2019-05-02 05:22] LABS: Basophils % 0.1 % (0.0-0.8); Eosinophils # 1.6 10*3/uL (0.0-0.87); Eosinophils % 9.3 % (0.00-10.9); Hematocrit 24.7 VOL% (42.0-52.0); Hemoglobin 7.7 GM/DL (14.0-18.0); Immature Granulocytes % 0.9 %; Immature Granulocytes Absolute 0.15 #; Lymphocytes # 0.3 10*3/uL (1.4-4.0); Lymphocytes % 1.6 % (21.2-54.2); Mean Corpuscular HGB Conc 31.2 GM/DL (32-36); Mean Corpuscular Volume 93.9 FL (87-102); Mean Platelet Volume 10.5 FL (9.6-12.0); Monocytes % 6.5 % (1.7-12.7); Neutrophils % 81.6 % (38.7-73.9); Platelet Count 265 T/CUMM (130-400); Red Blood Count 2.63 MC/CUMM (3.8-5.5); Red Cell Distribution Width 14.7 % (9.3-17.3); White Blood Count 17.1 T/CUMM (4-12)
[2019-05-02] MEDS: HYDROmorphone 2 MG/1 ML VIAL IV PRN ×3 (05:28→22:07)
[2019-05-02] MEDS: LEVOTHYROXINE 88 MCG TABLET PO SCH (05:30)
[2019-05-02 05:54] LABS: Eosinophils 8 % (0-10); Hypochromasia 1+; Lymphocytes 1 % (20-55); Platelet Estimate Adequate; Segmented Neutrophils 86 % (50-85); Total Cells Counted 100
[2019-05-02 05:59] LABS: Albumin 1.6 G/DL (3.4-5.0); Bilirubin,Total 0.6 MG/DL (0.2-1.0); Calcium 7.8 MG/DL (8.5-10.1); Osmolality,Calculated 284.1 MOS/KG (273-304); Total Protein 4.5 G/DL (6.4-8.3)
[2019-05-02] MEDS ORDERED: SODIUM PHOSPHATE ENEMA 133 ML BOTTLE RECTAL ONE (07:12)
[2019-05-02] MEDS: DORNASE ALFA 2.5 MG/2.5 ML VIAL RESP TX SCH ×2 (08:00→19:08)
[2019-05-02] MEDS: ASPIRIN CHEW 81 MG TABLET PO SCH (08:44)
[2019-05-02] MEDS: DOCUSATE SODIUM 100 MG/10 ML UDCUP PO SCH ×2 (08:44→21:08)
[2019-05-02] MEDS: LOSARTAN 50 MG TABLET PO SCH (08:44)
[2019-05-02] MEDS: AMIODARONE 200 MG TABLET PO SCH (08:44)
[2019-05-02] MEDS: POTASSIUM CHLORIDE 20 MEQ TABLET PO SCH (08:46)
[2019-05-02] MEDS: FUROSEMIDE 20 MG TABLET PO SCH (08:47)
[2019-05-02] MEDS: POLYETHYLENE GLYCOL POWDER 17 GM PACK PO SCH (08:52)
[2019-05-02] MEDS: METOPROLOL TARTRATE 50 MG TABLET PO SCH ×2 (08:52→21:07)
[2019-05-02] MEDS: PANTOPRAZOLE 40 MG TABLET PO SCH (08:53)
[2019-05-02] MEDS: amLODIPine 5 MG TABLET PO SCH (08:53)
[2019-05-02] MEDS: SERTRALINE 25 MG TABLET PO SCH (08:54)
[2019-05-02] MEDS: NYSTATIN POWDER 15 GM BOTTLE TOP SCH ×3 (08:56→21:08)
[2019-05-02] MEDS: prednisoLONE ACETATE 1% OPH SUSP 5 ML BOTTLE LEFT EYE SCH ×2 (08:57→21:08)
[2019-05-02] MEDS: BRIMONIDINE 0.15% OPH SOLN 1 DROP/DROPS BOTTLE LEFT EYE SCH ×2 (08:58→21:08)
[2019-05-02] MEDS: MEROPENEM 500 MG in SODIUM CHLORIDE 0.9% 100 ML IV SCH ×2 (16:48→21:07)
[2019-05-02] MEDS: diphenhydrAMINE CAP 25 MG CAPSULE PO PRN (18:56)
[2019-05-02] MEDS: TAMSULOSIN 0.4 MG CAPSULE PO SCH (21:08)
[2019-05-02] MEDS: ROSUVASTATIN 20 MG TABLET PO SCH (21:08)
[2019-05-03] MEDS: ALBUTEROL/IPRATROPIUM 3 ML NEB RESP TX SCH ×4 (00:02→19:17)
[2019-05-03] MEDS: MEROPENEM 500 MG in SODIUM CHLORIDE 0.9% 100 ML IV SCH ×5 (04:25→22:38)
[2019-05-03] MEDS: LEVOTHYROXINE 88 MCG TABLET PO SCH (06:13)
[2019-05-03 07:23] LABS: Basophils % 0.1 % (0.0-0.8); Eosinophils # 1.9 10*3/uL (0.0-0.87); Eosinophils % 14.4 % (0.00-10.9); Hematocrit 23.2 VOL% (42.0-52.0); Hemoglobin 7.3 GM/DL (14.0-18.0); Immature Granulocytes % 0.8 %; Immature Granulocytes Absolute 0.11 #; Lymphocytes # 0.4 10*3/uL (1.4-4.0); Mean Corpuscular HGB Conc 31.5 GM/DL (32-36); Mean Corpuscular Volume 92.4 FL (87-102); Mean Platelet Volume 10.1 FL (9.6-12.0); Monocytes % 5.8 % (1.7-12.7); Neutrophils % 75.9 % (38.7-73.9); Platelet Count 248 T/CUMM (130-400); Red Blood Count 2.51 MC/CUMM (3.8-5.5); Red Cell Distribution Width 15.1 % (9.3-17.3); White Blood Count 13.4 T/CUMM (4-12)
[2019-05-03] MEDS: DORNASE ALFA 2.5 MG/2.5 ML VIAL RESP TX SCH (07:25)
[2019-05-03] MEDS: HYDROmorphone 2 MG/1 ML VIAL IV PRN ×3 (07:57→18:42)
[2019-05-03 08:06] LABS: Band Neutrophils 1 % (0-10); Eosinophils 14 % (0-10); Hypochromasia 1+; Lymphocytes 1 % (20-55); Microcytosis Slight; Segmented Neutrophils 78 % (50-85); Total Cells Counted 100
[2019-05-03 08:07] LABS: Platelet Estimate Normal
[2019-05-03] MEDS: ASPIRIN CHEW 81 MG TABLET PO SCH (09:46)
[2019-05-03] MEDS: POLYETHYLENE GLYCOL POWDER 17 GM PACK PO SCH (09:46)
[2019-05-03] MEDS: DOCUSATE SODIUM 100 MG/10 ML UDCUP PO SCH ×2 (09:47→22:37)
[2019-05-03] MEDS: AMIODARONE 200 MG TABLET PO SCH (09:47)
[2019-05-03] MEDS: LOSARTAN 50 MG TABLET PO SCH (09:48)
[2019-05-03] MEDS: METOPROLOL TARTRATE 50 MG TABLET PO SCH ×2 (09:49→21:37)
[2019-05-03] MEDS: FUROSEMIDE 20 MG TABLET PO SCH (09:49)
[2019-05-03] MEDS: POTASSIUM CHLORIDE 20 MEQ TABLET PO SCH (09:49)
[2019-05-03] MEDS: NYSTATIN POWDER 15 GM BOTTLE TOP SCH ×3 (09:50→21:38)
[2019-05-03] MEDS: PANTOPRAZOLE 40 MG TABLET PO SCH (09:51)
[2019-05-03] MEDS: SERTRALINE 25 MG TABLET PO SCH (09:51)
[2019-05-03] MEDS: amLODIPine 5 MG TABLET PO SCH (09:51)
[2019-05-03] MEDS: prednisoLONE ACETATE 1% OPH SUSP 5 ML BOTTLE LEFT EYE SCH ×2 (09:56→21:38)
[2019-05-03] MEDS: BRIMONIDINE 0.15% OPH SOLN 1 DROP/DROPS BOTTLE LEFT EYE SCH ×2 (09:57→21:37)
[2019-05-03] MEDS: diphenhydrAMINE CAP 25 MG CAPSULE PO PRN (11:16)
[2019-05-03] MEDS: TAMSULOSIN 0.4 MG CAPSULE PO SCH (21:37)
[2019-05-03] MEDS: ROSUVASTATIN 20 MG TABLET PO SCH (21:37)
[2019-05-04] MEDS: ALBUTEROL/IPRATROPIUM 3 ML NEB RESP TX SCH ×4 (00:08→19:45)
[2019-05-04] MEDS: MEROPENEM 500 MG in SODIUM CHLORIDE 0.9% 100 ML IV SCH ×4 (04:15→22:18)
[2019-05-04] MEDS: LEVOTHYROXINE 88 MCG TABLET PO SCH (06:31)
[2019-05-04 07:21] LABS: Basophils % 0.1 % (0.0-0.8); Eosinophils % 13.7 % (0.00-10.9); Hematocrit 22.8 VOL% (42.0-52.0); Hemoglobin 7.4 GM/DL (14.0-18.0); Immature Granulocytes % 0.9 %; Immature Granulocytes Absolute 0.13 #; Lymphocytes # 0.3 10*3/uL (1.4-4.0); Lymphocytes % 2.1 % (21.2-54.2); Mean Corpuscular HGB Conc 32.5 GM/DL (32-36); Mean Corpuscular Volume 93.1 FL (87-102); Mean Platelet Volume 10.1 FL (9.6-12.0); Monocytes % 4.1 % (1.7-12.7); Neutrophils % 79.1 % (38.7-73.9); Platelet Count 253 T/CUMM (130-400); Red Blood Count 2.45 MC/CUMM (3.8-5.5); Red Cell Distribution Width 14.9 % (9.3-17.3); White Blood Count 14.5 T/CUMM (4-12)
[2019-05-04] MEDS ORDERED: MIDAZOLAM 2 MG/2 ML VIAL ONE (07:21)
[2019-05-04] MEDS ORDERED: PROMETHAZINE 25 MG/1 ML VIAL IM ONE (07:30)
[2019-05-04] MEDS ORDERED: MEPERIDINE 50 MG/1 ML VIAL IM ONE (07:30)
[2019-05-04] MEDS ORDERED: LIDOCAINE 2% 20 ML VIAL RESP TX ONE (08:00)
[2019-05-04] MEDS ORDERED: LIDOCAINE 1% 20 ML VIAL MISC INJ ONE (08:00)
[2019-05-04] MEDS ORDERED: LIDOCAINE 2% VISCOUS 100 ML BOTTLE SWISH/SPIT ONE (08:00)
[2019-05-04] MEDS ORDERED: MIDAZOLAM 2 MG/2 ML VIAL IV ONE (08:00)
[2019-05-04 08:23] LABS: Band Neutrophils 4 % (0-10); Eosinophils 15 % (0-10); Hypochromasia Slight; Lymphocytes 2 % (20-55); Segmented Neutrophils 74 % (50-85); Total Cells Counted 100
[2019-05-04 08:24] LABS: Microcytosis 1+; Platelet Estimate Normal
[2019-05-04] MEDS: NYSTATIN POWDER 15 GM BOTTLE TOP SCH ×3 (10:08→21:09)
[2019-05-04] MEDS: AMIODARONE 200 MG TABLET PO SCH (10:11)
[2019-05-04] MEDS: LOSARTAN 50 MG TABLET PO SCH (10:11)
[2019-05-04] MEDS: SERTRALINE 25 MG TABLET PO SCH (10:11)
[2019-05-04] MEDS: amLODIPine 5 MG TABLET PO SCH (10:12)
[2019-05-04] MEDS: METOPROLOL TARTRATE 50 MG TABLET PO SCH ×2 (10:12→21:06)
[2019-05-04] MEDS: PANTOPRAZOLE 40 MG TABLET PO SCH (10:12)
[2019-05-04] MEDS: POLYETHYLENE GLYCOL POWDER 17 GM PACK PO SCH (10:12)
[2019-05-04] MEDS: prednisoLONE ACETATE 1% OPH SUSP 5 ML BOTTLE LEFT EYE SCH ×2 (10:12→21:10)
[2019-05-04] MEDS: ASPIRIN CHEW 81 MG TABLET PO SCH (10:12)
[2019-05-04] MEDS: DOCUSATE SODIUM 100 MG/10 ML UDCUP PO SCH ×2 (10:13→21:06)
[2019-05-04] MEDS: POTASSIUM CHLORIDE 20 MEQ TABLET PO SCH (10:13)
[2019-05-04] MEDS: BRIMONIDINE 0.15% OPH SOLN 1 DROP/DROPS BOTTLE LEFT EYE SCH ×2 (10:13→21:10)
[2019-05-04] MEDS: FUROSEMIDE 20 MG TABLET PO SCH (10:17)
[2019-05-04] MEDS: HYDROmorphone 2 MG/1 ML VIAL IV PRN (15:42)
[2019-05-04] MEDS: TAMSULOSIN 0.4 MG CAPSULE PO SCH (21:06)
[2019-05-04] MEDS: ROSUVASTATIN 20 MG TABLET PO SCH (21:06)
[2019-05-05] MEDS: ALBUTEROL/IPRATROPIUM 3 ML NEB RESP TX SCH ×4 (00:40→21:35)
[2019-05-05] MEDS: MEROPENEM 500 MG in SODIUM CHLORIDE 0.9% 100 ML IV SCH ×4 (04:51→22:26)
[2019-05-05 05:37] LABS: Basophils % 0.1 % (0.0-0.8); Eosinophils % 20.5 % (0.00-10.9); Hematocrit 24.1 VOL% (42.0-52.0); Hemoglobin 7.7 GM/DL (14.0-18.0); Immature Granulocytes % 0.7 %; Lymphocytes # 0.4 10*3/uL (1.4-4.0); Lymphocytes % 2.4 % (21.2-54.2); Mean Platelet Volume 10.7 FL (9.6-12.0); Monocytes % 3.9 % (1.7-12.7); Neutrophils % 72.4 % (38.7-73.9); Platelet Count 255 T/CUMM (130-400); Red Blood Count 2.62 MC/CUMM (3.8-5.5); Red Cell Distribution Width 14.9 % (9.3-17.3); White Blood Count 14.7 T/CUMM (4-12)
[2019-05-05] MEDS: LEVOTHYROXINE 88 MCG TABLET PO SCH (05:39)
[2019-05-05 05:56] LABS: Calcium 7.7 MG/DL (8.5-10.1); Osmolality,Calculated 285.3 MOS/KG (273-304)
[2019-05-05 06:12] LABS: Band Neutrophils 3 % (0-10); Eosinophils 21 % (0-10); Hypochromasia 1+; Lymphocytes 1 % (20-55); Microcytosis 1+; Ovalocytes Slight; Platelet Estimate Normal; Segmented Neutrophils 74 % (50-85); Total Cells Counted 100
[2019-05-05] MEDS: HYDROmorphone 2 MG/1 ML VIAL IV PRN ×3 (08:26→20:19)
[2019-05-05] MEDS: methylPREDNISolone SOD SUC 40 MG/1 ML VIAL IV SCH ×2 (10:08→17:22)
[2019-05-05] MEDS: SERTRALINE 25 MG TABLET PO SCH (10:09)
[2019-05-05] MEDS: AMIODARONE 200 MG TABLET PO SCH (10:09)
[2019-05-05] MEDS: FUROSEMIDE 20 MG TABLET PO SCH (10:09)
[2019-05-05] MEDS: NYSTATIN 500,000 UNIT/5 ML UDCUP SWISH/SWAL SCH ×4 (10:09→20:17)
[2019-05-05] MEDS: POLYETHYLENE GLYCOL POWDER 17 GM PACK PO SCH (10:09)
[2019-05-05] MEDS: ASPIRIN CHEW 81 MG TABLET PO SCH (10:09)
[2019-05-05] MEDS: LOSARTAN 50 MG TABLET PO SCH (10:09)
[2019-05-05] MEDS: PANTOPRAZOLE 40 MG TABLET PO SCH (10:10)
[2019-05-05] MEDS: BRIMONIDINE 0.15% OPH SOLN 1 DROP/DROPS BOTTLE LEFT EYE SCH ×2 (10:10→20:19)
[2019-05-05] MEDS: amLODIPine 5 MG TABLET PO SCH (10:10)
[2019-05-05] MEDS: NYSTATIN POWDER 15 GM BOTTLE TOP SCH ×3 (10:10→20:19)
[2019-05-05] MEDS: DOCUSATE SODIUM 100 MG/10 ML UDCUP PO SCH ×2 (10:10→20:18)
[2019-05-05] MEDS: METOPROLOL TARTRATE 50 MG TABLET PO SCH ×2 (10:10→20:18)
[2019-05-05] MEDS: POTASSIUM CHLORIDE 20 MEQ TABLET PO SCH (10:10)
[2019-05-05] MEDS: prednisoLONE ACETATE 1% OPH SUSP 5 ML BOTTLE LEFT EYE SCH ×2 (10:11→20:19)
[2019-05-05] MEDS: diphenhydrAMINE CAP 25 MG CAPSULE PO PRN (10:31)
[2019-05-05] MEDS: ONDANSETRON 4 MG/2 ML VIAL IV PRN (17:30)
[2019-05-05] MEDS: TAMSULOSIN 0.4 MG CAPSULE PO SCH (20:18)
[2019-05-05] MEDS: ROSUVASTATIN 20 MG TABLET PO SCH (20:18)
[2019-05-06] MEDS: ALBUTEROL/IPRATROPIUM 3 ML NEB RESP TX SCH ×4 (01:21→19:02)
[2019-05-06] MEDS: methylPREDNISolone SOD SUC 40 MG/1 ML VIAL IV SCH (01:31)
[2019-05-06] MEDS: MEROPENEM 500 MG in SODIUM CHLORIDE 0.9% 100 ML IV SCH ×4 (04:28→22:35)
[2019-05-06 05:44] LABS: Basophils % 0.1 % (0.0-0.8); Eosinophils # 0.2 10*3/uL (0.0-0.87); Eosinophils % 0.9 % (0.00-10.9); Hematocrit 22.7 VOL% (42.0-52.0); Hemoglobin 7.2 GM/DL (14.0-18.0); Immature Granulocytes Absolute 0.18 #; Lymphocytes # 0.4 10*3/uL (1.4-4.0); Lymphocytes % 2.2 % (21.2-54.2); Mean Corpuscular HGB Conc 31.7 GM/DL (32-36); Mean Corpuscular Volume 92.3 FL (87-102); Mean Platelet Volume 10.7 FL (9.6-12.0); Monocytes % 1.1 % (1.7-12.7); Neutrophils % 94.7 % (38.7-73.9); Platelet Count 253 T/CUMM (130-400); Red Blood Count 2.46 MC/CUMM (3.8-5.5); Red Cell Distribution Width 14.9 % (9.3-17.3); White Blood Count 17.6 T/CUMM (4-12)
[2019-05-06] MEDS: LEVOTHYROXINE 88 MCG TABLET PO SCH (06:05)
[2019-05-06 06:07] LABS: Albumin 1.6 G/DL (3.4-5.0); Prealbumin 4.2 MG/DL (20-40)
[2019-05-06] MEDS: HYDROmorphone 2 MG/1 ML VIAL IV PRN ×5 (06:08→22:35)
[2019-05-06] MEDS: ONDANSETRON 4 MG/2 ML VIAL IV PRN (06:08)
[2019-05-06 06:12] LABS: Band Neutrophils 2 % (0-10); Eosinophils 1 % (0-10); Lymphocytes 1 % (20-55); Segmented Neutrophils 96 % (50-85); Total Cells Counted 100
[2019-05-06 06:13] LABS: Hypochromasia 1+; Microcytosis 1+; Platelet Estimate Adequate
[2019-05-06] MEDS: AMIODARONE 200 MG TABLET PO SCH (09:41)
[2019-05-06] MEDS: ASPIRIN CHEW 81 MG TABLET PO SCH (09:42)
[2019-05-06] MEDS: amLODIPine 5 MG TABLET PO SCH (09:48)
[2019-05-06] MEDS: SERTRALINE 25 MG TABLET PO SCH (09:49)
[2019-05-06] MEDS: FUROSEMIDE 20 MG TABLET PO SCH (09:49)
[2019-05-06] MEDS: NYSTATIN 500,000 UNIT/5 ML UDCUP SWISH/SWAL SCH ×4 (09:51→21:43)
[2019-05-06] MEDS: METOPROLOL TARTRATE 50 MG TABLET PO SCH ×2 (09:56→21:30)
[2019-05-06] MEDS: POTASSIUM CHLORIDE 20 MEQ TABLET PO SCH (10:01)
[2019-05-06] MEDS: prednisoLONE ACETATE 1% OPH SUSP 5 ML BOTTLE LEFT EYE SCH ×2 (10:01→21:32)
[2019-05-06] MEDS: BRIMONIDINE 0.15% OPH SOLN 1 DROP/DROPS BOTTLE LEFT EYE SCH ×2 (10:02→21:32)
[2019-05-06] MEDS: PANTOPRAZOLE 40 MG TABLET PO SCH (10:15)
[2019-05-06] MEDS: DOCUSATE SODIUM 100 MG CAPSULE PO SCH ×2 (10:16→21:29)
[2019-05-06] MEDS: LOSARTAN 50 MG TABLET PO SCH (10:21)
[2019-05-06] MEDS: NYSTATIN POWDER 15 GM BOTTLE TOP SCH ×3 (11:06→21:33)
[2019-05-06] MEDS: POLYETHYLENE GLYCOL POWDER 17 GM PACK PO SCH (11:21)
[2019-05-06] MEDS: METOCLOPRAMIDE 10 MG/2 ML VIAL IV SCH ×2 (11:26→16:34)
[2019-05-06] MEDS: diphenhydrAMINE CAP 25 MG CAPSULE PO PRN (21:29)
[2019-05-06] MEDS: ROSUVASTATIN 20 MG TABLET PO SCH (21:30)
[2019-05-06] MEDS: TAMSULOSIN 0.4 MG CAPSULE PO SCH (21:30)
[2019-05-07] MEDS: ALBUTEROL/IPRATROPIUM 3 ML NEB RESP TX SCH ×4 (00:28→19:11)
[2019-05-07] MEDS: MEROPENEM 500 MG in SODIUM CHLORIDE 0.9% 100 ML IV SCH ×4 (04:46→21:35)
[2019-05-07 06:29] LABS: Basophils % 0.1 % (0.0-0.8); Eosinophils # 1.2 10*3/uL (0.0-0.87); Eosinophils % 6.7 % (0.00-10.9); Hematocrit 21.5 VOL% (42.0-52.0); Hemoglobin 6.9 GM/DL (14.0-18.0); Immature Granulocytes % 0.6 %; Immature Granulocytes Absolute 0.11 #; Lymphocytes # 0.6 10*3/uL (1.4-4.0); Mean Corpuscular HGB Conc 32.1 GM/DL (32-36); Mean Corpuscular Volume 92.3 FL (87-102); Mean Platelet Volume 10.7 FL (9.6-12.0); Monocytes % 4.3 % (1.7-12.7); Neutrophils % 85.3 % (38.7-73.9); Platelet Count 224 T/CUMM (130-400); Red Blood Count 2.33 MC/CUMM (3.8-5.5); Red Cell Distribution Width 15.1 % (9.3-17.3); White Blood Count 18.2 T/CUMM (4-12)
[2019-05-07 06:54] LABS: Eosinophils 3 % (0-10); Lymphocytes 3 % (20-55); Segmented Neutrophils 93 % (50-85); Total Cells Counted 100
[2019-05-07 06:55] LABS: Hypochromasia 1+; Microcytosis 1+; Ovalocytes Slight; Platelet Estimate Adequate
[2019-05-07 06:59] LABS: Calcium 7.7 MG/DL (8.5-10.1); Osmolality,Calculated 284.7 MOS/KG (273-304)
[2019-05-07] MEDS ORDERED: SODIUM CHLORIDE 0.9% 1,000 ML IV PRN (07:36)
[2019-05-07] MEDS: HYDROmorphone 2 MG/1 ML VIAL IV PRN ×2 (08:32→16:45)
[2019-05-07] MEDS: prednisoLONE ACETATE 1% OPH SUSP 5 ML BOTTLE LEFT EYE SCH ×2 (08:51→21:04)
[2019-05-07] MEDS: BRIMONIDINE 0.15% OPH SOLN 1 DROP/DROPS BOTTLE LEFT EYE SCH ×2 (08:52→21:04)
[2019-05-07] MEDS: NYSTATIN POWDER 15 GM BOTTLE TOP SCH ×3 (08:54→21:04)
[2019-05-07] MEDS: POTASSIUM CHLORIDE 20 MEQ TABLET PO SCH (08:55)
[2019-05-07] MEDS: LEVOTHYROXINE 88 MCG TABLET PO SCH (09:22)
[2019-05-07] MEDS: AMIODARONE 200 MG TABLET PO SCH (09:23)
[2019-05-07] MEDS: POLYETHYLENE GLYCOL POWDER 17 GM PACK PO SCH (09:23)
[2019-05-07] MEDS: FUROSEMIDE 20 MG TABLET PO SCH (09:23)
[2019-05-07] MEDS: LOSARTAN 50 MG TABLET PO SCH (09:24)
[2019-05-07] MEDS: METOCLOPRAMIDE 10 MG/2 ML VIAL IV SCH ×3 (09:27→18:06)
[2019-05-07] MEDS: SERTRALINE 25 MG TABLET PO SCH (09:28)
[2019-05-07] MEDS: METOPROLOL TARTRATE 50 MG TABLET PO SCH ×2 (09:29→21:04)
[2019-05-07] MEDS: PANTOPRAZOLE 40 MG TABLET PO SCH (09:30)
[2019-05-07] MEDS: ASPIRIN CHEW 81 MG TABLET PO SCH (09:37)
[2019-05-07] MEDS: NYSTATIN 500,000 UNIT/5 ML UDCUP SWISH/SWAL SCH ×4 (09:38→21:04)
[2019-05-07] MEDS: amLODIPine 5 MG TABLET PO SCH (09:38)
[2019-05-07] MEDS: DOCUSATE SODIUM 100 MG CAPSULE PO SCH ×2 (09:38→21:04)
[2019-05-07] MEDS ORDERED: LACTATED RINGERS 500 ML IV ONE (10:53)
[2019-05-07] MEDS: DEXT 5% NACL 0.45% KCL 40 MEQ 40 MEQ/1,000 ML BAG IV SCH ×2 (15:16→19:07)
[2019-05-07 18:37] LABS: Hematocrit 28.1 VOL% (42.0-52.0)
[2019-05-07] MEDS: TAMSULOSIN 0.4 MG CAPSULE PO SCH (21:04)
[2019-05-07] MEDS: diphenhydrAMINE CAP 25 MG CAPSULE PO PRN (21:04)
[2019-05-07] MEDS: ROSUVASTATIN 20 MG TABLET PO SCH (21:04)
[2019-05-08] MEDS: ALBUTEROL/IPRATROPIUM 3 ML NEB RESP TX SCH ×4 (01:30→19:09)
[2019-05-08] MEDS: HYDROmorphone 2 MG/1 ML VIAL IV PRN ×5 (04:47→22:36)
[2019-05-08] MEDS: DEXT 5% NACL 0.45% KCL 40 MEQ 40 MEQ/1,000 ML BAG IV SCH ×3 (05:10→18:11)
[2019-05-08] MEDS: MEROPENEM 500 MG in SODIUM CHLORIDE 0.9% 100 ML IV SCH ×4 (05:11→21:48)
[2019-05-08 05:56] LABS: Basophils % 0.1 % (0.0-0.8); Eosinophils # 4.7 10*3/uL (0.0-0.87); Eosinophils % 33.3 % (0.00-10.9); Hematocrit 28.5 VOL% (42.0-52.0); Hemoglobin 9.2 GM/DL (14.0-18.0); Immature Granulocytes % 0.4 %; Immature Granulocytes Absolute 0.06 #; Lymphocytes # 0.4 10*3/uL (1.4-4.0); Mean Corpuscular HGB Conc 32.3 GM/DL (32-36); Mean Corpuscular Volume 90.8 FL (87-102); Mean Platelet Volume 10.8 FL (9.6-12.0); Monocytes % 3.5 % (1.7-12.7); Neutrophils % 59.7 % (38.7-73.9); Platelet Count 223 T/CUMM (130-400); Red Blood Count 3.14 MC/CUMM (3.8-5.5); Red Cell Distribution Width 15.3 % (9.3-17.3); White Blood Count 14.1 T/CUMM (4-12)
[2019-05-08 06:22] LABS: Calcium 7.9 MG/DL (8.5-10.1); Osmolality,Calculated 283.5 MOS/KG (273-304)
[2019-05-08 06:32] LABS: Eosinophils 38 % (0-10); Hypochromasia 1+; Lymphocytes 1 % (20-55); Microcytosis 1+; Ovalocytes Slight; Platelet Estimate Adequate; Segmented Neutrophils 59 % (50-85); Total Cells Counted 100
[2019-05-08] MEDS: LEVOTHYROXINE 88 MCG TABLET PO SCH (07:21)
[2019-05-08] MEDS: AMIODARONE 200 MG TABLET PO SCH (09:22)
[2019-05-08] MEDS: DOCUSATE SODIUM 100 MG CAPSULE PO SCH ×2 (09:22→21:47)
[2019-05-08] MEDS: LOSARTAN 50 MG TABLET PO SCH (09:24)
[2019-05-08] MEDS: PANTOPRAZOLE 40 MG TABLET PO SCH (09:25)
[2019-05-08] MEDS: METOCLOPRAMIDE 10 MG/2 ML VIAL IV SCH ×3 (09:26→15:50)
[2019-05-08] MEDS: FUROSEMIDE 20 MG TABLET PO SCH (09:28)
[2019-05-08] MEDS: POTASSIUM CHLORIDE 20 MEQ TABLET PO SCH (09:28)
[2019-05-08] MEDS: ASPIRIN CHEW 81 MG TABLET PO SCH (09:29)
[2019-05-08] MEDS: METOPROLOL TARTRATE 50 MG TABLET PO SCH ×2 (09:29→21:47)
[2019-05-08] MEDS: amLODIPine 5 MG TABLET PO SCH (09:34)
[2019-05-08] MEDS: SERTRALINE 25 MG TABLET PO SCH (09:34)
[2019-05-08] MEDS: POLYETHYLENE GLYCOL POWDER 17 GM PACK PO SCH (09:35)
[2019-05-08] MEDS: NYSTATIN 500,000 UNIT/5 ML UDCUP SWISH/SWAL SCH ×4 (09:36→21:48)
[2019-05-08] MEDS: BRIMONIDINE 0.15% OPH SOLN 1 DROP/DROPS BOTTLE LEFT EYE SCH ×2 (09:56→22:17)
[2019-05-08] MEDS: prednisoLONE ACETATE 1% OPH SUSP 5 ML BOTTLE LEFT EYE SCH ×2 (09:56→22:17)
[2019-05-08] MEDS: NYSTATIN POWDER 15 GM BOTTLE TOP SCH ×3 (09:56→21:48)
[2019-05-08] MEDS: ONDANSETRON 4 MG/2 ML VIAL IV PRN (17:38)
[2019-05-08] MEDS: diphenhydrAMINE CAP 25 MG CAPSULE PO PRN (21:46)
[2019-05-08] MEDS: TAMSULOSIN 0.4 MG CAPSULE PO SCH (21:47)
[2019-05-08] MEDS: ROSUVASTATIN 20 MG TABLET PO SCH (21:47)
[2019-05-09] MEDS: ALBUTEROL/IPRATROPIUM 3 ML NEB RESP TX SCH ×4 (00:26→19:30)
[2019-05-09] MEDS: MEROPENEM 500 MG in SODIUM CHLORIDE 0.9% 100 ML IV SCH ×4 (05:13→22:50)
[2019-05-09] MEDS: DEXT 5% NACL 0.45% KCL 40 MEQ 40 MEQ/1,000 ML BAG IV SCH ×3 (05:14→22:48)
[2019-05-09 05:52] LABS: Basophils % 0.1 % (0.0-0.8); Eosinophils # 4.9 10*3/uL (0.0-0.87); Eosinophils % 36.9 % (0.00-10.9); Hematocrit 25.5 VOL% (42.0-52.0); Hemoglobin 8.2 GM/DL (14.0-18.0); Immature Granulocytes % 0.5 %; Immature Granulocytes Absolute 0.07 #; Lymphocytes # 0.4 10*3/uL (1.4-4.0); Lymphocytes % 2.9 % (21.2-54.2); Mean Corpuscular HGB Conc 32.2 GM/DL (32-36); Mean Corpuscular Volume 91.1 FL (87-102); Mean Platelet Volume 10.8 FL (9.6-12.0); Monocytes % 3.1 % (1.7-12.7); Neutrophils % 56.5 % (38.7-73.9); Platelet Count 179 T/CUMM (130-400); Red Cell Distribution Width 15.1 % (9.3-17.3); White Blood Count 13.2 T/CUMM (4-12)
[2019-05-09 06:07] LABS: Prealbumin 5.6 MG/DL (20-40)
[2019-05-09 06:11] LABS: Calcium 7.6 MG/DL (8.5-10.1); Osmolality,Calculated 283.5 MOS/KG (273-304)
[2019-05-09 06:17] LABS: Eosinophils 32 % (0-10); Hypochromasia 1+; Lymphocytes 1 % (20-55); Platelet Estimate Adequate; Segmented Neutrophils 64 % (50-85); Total Cells Counted 100
[2019-05-09 06:18] LABS: Microcytosis 1+
[2019-05-09] MEDS ORDERED: SODIUM PHOSPHATE ENEMA 133 ML BOTTLE RECTAL ONE (07:10)
[2019-05-09] MEDS: HYDROmorphone 2 MG/1 ML VIAL IV PRN ×4 (07:20→21:15)
[2019-05-09] MEDS: LEVOTHYROXINE 88 MCG TABLET PO SCH (07:48)
[2019-05-09] MEDS: ASPIRIN CHEW 81 MG TABLET PO SCH (08:38)
[2019-05-09] MEDS: AMIODARONE 200 MG TABLET PO SCH (08:38)
[2019-05-09] MEDS: FUROSEMIDE 20 MG TABLET PO SCH (08:38)
[2019-05-09] MEDS: POTASSIUM CHLORIDE 20 MEQ TABLET PO SCH ×2 (08:38→09:51)
[2019-05-09] MEDS: amLODIPine 5 MG TABLET PO SCH (08:38)
[2019-05-09] MEDS: PANTOPRAZOLE 40 MG TABLET PO SCH (08:38)
[2019-05-09] MEDS: DOCUSATE SODIUM 100 MG CAPSULE PO SCH ×2 (08:39→21:03)
[2019-05-09] MEDS: METOPROLOL TARTRATE 50 MG TABLET PO SCH ×2 (08:39→21:03)
[2019-05-09] MEDS: SERTRALINE 25 MG TABLET PO SCH (08:39)
[2019-05-09] MEDS: LOSARTAN 50 MG TABLET PO SCH (08:39)
[2019-05-09] MEDS: NYSTATIN POWDER 15 GM BOTTLE TOP SCH ×3 (08:40→21:05)
[2019-05-09] MEDS: POLYETHYLENE GLYCOL POWDER 17 GM PACK PO SCH ×2 (08:40)
[2019-05-09] MEDS: METOCLOPRAMIDE 10 MG/2 ML VIAL IV SCH ×3 (08:40→16:41)
[2019-05-09] MEDS: NYSTATIN 500,000 UNIT/5 ML UDCUP SWISH/SWAL SCH ×5 (08:40→21:03)
[2019-05-09] MEDS: prednisoLONE ACETATE 1% OPH SUSP 5 ML BOTTLE LEFT EYE SCH ×2 (08:40→21:05)
[2019-05-09] MEDS: BRIMONIDINE 0.15% OPH SOLN 1 DROP/DROPS BOTTLE LEFT EYE SCH ×2 (08:41→21:05)
[2019-05-09] MEDS ORDERED: FUROSEMIDE 40 MG/4 ML VIAL IV ONE (20:39)
[2019-05-09] MEDS: TAMSULOSIN 0.4 MG CAPSULE PO SCH (21:03)
[2019-05-09] MEDS: ROSUVASTATIN 20 MG TABLET PO SCH (21:03)
[2019-05-10] MEDS: ALBUTEROL/IPRATROPIUM 3 ML NEB RESP TX SCH ×4 (00:55→19:40)
[2019-05-10] MEDS: HYDROmorphone 2 MG/1 ML VIAL IV PRN ×4 (03:48→20:22)
[2019-05-10] MEDS: DEXT 5% NACL 0.45% KCL 40 MEQ 40 MEQ/1,000 ML BAG IV SCH ×3 (03:51→12:41)
[2019-05-10] MEDS: LEVOTHYROXINE 88 MCG TABLET PO SCH (06:10)
[2019-05-10 06:36] LABS: Basophils % 0.1 % (0.0-0.8); Eosinophils # 4.9 10*3/uL (0.0-0.87); Hematocrit 27.8 VOL% (42.0-52.0); Hemoglobin 8.8 GM/DL (14.0-18.0); Immature Granulocytes % 0.5 %; Immature Granulocytes Absolute 0.08 #; Lymphocytes # 0.4 10*3/uL (1.4-4.0); Lymphocytes % 2.3 % (21.2-54.2); Mean Corpuscular HGB Conc 31.7 GM/DL (32-36); Mean Corpuscular Volume 91.1 FL (87-102); Mean Platelet Volume 10.7 FL (9.6-12.0); Neutrophils % 63.1 % (38.7-73.9); Platelet Count 170 T/CUMM (130-400); Red Blood Count 3.05 MC/CUMM (3.8-5.5); Red Cell Distribution Width 15.1 % (9.3-17.3); White Blood Count 15.9 T/CUMM (4-12)
[2019-05-10 06:56] LABS: Eosinophils 28 % (0-10); Hypochromasia 2+; Lymphocytes 4 % (20-55); Ovalocytes Slight; Platelet Estimate Adequate; Segmented Neutrophils 67 % (50-85); Total Cells Counted 100
[2019-05-10 06:57] LABS: Microcytosis 1+
[2019-05-10 07:04] LABS: Calcium 7.6 MG/DL (8.5-10.1); Osmolality,Calculated 274.1 MOS/KG (273-304)
[2019-05-10] MEDS: PANTOPRAZOLE 40 MG TABLET PO SCH (09:26)
[2019-05-10] MEDS: amLODIPine 5 MG TABLET PO SCH (09:27)
[2019-05-10] MEDS: LOSARTAN 50 MG TABLET PO SCH (09:28)
[2019-05-10] MEDS: METOCLOPRAMIDE 10 MG/2 ML VIAL IV SCH ×3 (09:35→17:36)
[2019-05-10] MEDS: AMIODARONE 200 MG TABLET PO SCH (10:06)
[2019-05-10] MEDS: POLYETHYLENE GLYCOL POWDER 17 GM PACK PO SCH (10:06)
[2019-05-10] MEDS: SERTRALINE 25 MG TABLET PO SCH (10:06)
[2019-05-10] MEDS: FUROSEMIDE 20 MG TABLET PO SCH (10:06)
[2019-05-10] MEDS: METOPROLOL TARTRATE 50 MG TABLET PO SCH ×2 (10:06→20:10)
[2019-05-10] MEDS: POTASSIUM CHLORIDE 20 MEQ TABLET PO SCH (10:10)
[2019-05-10] MEDS: DOCUSATE SODIUM 100 MG CAPSULE PO SCH ×2 (10:48→20:10)
[2019-05-10] MEDS: ASPIRIN CHEW 81 MG TABLET PO SCH (10:48)
[2019-05-10] MEDS: NYSTATIN POWDER 15 GM BOTTLE TOP SCH ×3 (10:49→20:11)
[2019-05-10] MEDS: NYSTATIN 500,000 UNIT/5 ML UDCUP SWISH/SWAL SCH ×4 (10:49→20:10)
[2019-05-10] MEDS: prednisoLONE ACETATE 1% OPH SUSP 5 ML BOTTLE LEFT EYE SCH ×2 (10:51→20:11)
[2019-05-10] MEDS: BRIMONIDINE 0.15% OPH SOLN 1 DROP/DROPS BOTTLE LEFT EYE SCH ×2 (10:51→20:11)
[2019-05-10] MEDS: ROSUVASTATIN 20 MG TABLET PO SCH (20:10)
[2019-05-10] MEDS: TAMSULOSIN 0.4 MG CAPSULE PO SCH (20:10)
[2019-05-11] MEDS: ALBUTEROL/IPRATROPIUM 3 ML NEB RESP TX SCH ×4 (00:50→19:32)
[2019-05-11] MEDS: HYDROmorphone 2 MG/1 ML VIAL IV PRN (03:21)
[2019-05-11 05:07] LABS: Basophils % 0.1 % (0.0-0.8); Eosinophils # 5.2 10*3/uL (0.0-0.87); Eosinophils % 29.6 % (0.00-10.9); Hemoglobin 8.6 GM/DL (14.0-18.0); Immature Granulocytes % 0.5 %; Immature Granulocytes Absolute 0.08 #; Lymphocytes # 0.5 10*3/uL (1.4-4.0); Lymphocytes % 2.8 % (21.2-54.2); Mean Corpuscular HGB Conc 33.1 GM/DL (32-36); Mean Corpuscular Volume 90.6 FL (87-102); Mean Platelet Volume 11.2 FL (9.6-12.0); Platelet Count 167 T/CUMM (130-400); Red Blood Count 2.87 MC/CUMM (3.8-5.5); Red Cell Distribution Width 14.8 % (9.3-17.3); White Blood Count 17.7 T/CUMM (4-12)
[2019-05-11 05:28] LABS: Calcium 7.7 MG/DL (8.5-10.1); Osmolality,Calculated 267.5 MOS/KG (273-304)
[2019-05-11 05:35] LABS: Eosinophils 36 % (0-10); Lymphocytes 1 % (20-55); Platelet Estimate Adequate; Segmented Neutrophils 62 % (50-85); Total Cells Counted 100
[2019-05-11 05:36] LABS: Hypochromasia 1+; Microcytosis 1+
[2019-05-11] MEDS: LEVOTHYROXINE 88 MCG TABLET PO SCH (06:06)
[2019-05-11] MEDS ORDERED: cefTRIAXone 1,000 MG VIAL IM SCH (07:30)
[2019-05-11] MEDS ORDERED: BISACODYL 10 MG SUPP RECTAL ONE (07:33)
[2019-05-11] MEDS ORDERED: MAGNESIUM SULF RIDER 4 GM in PREMIX 1 EACH IV ONE (07:35)
[2019-05-11] MEDS: METOCLOPRAMIDE 10 MG/2 ML VIAL IV SCH ×3 (08:11→17:09)
[2019-05-11] MEDS: MEROPENEM 1,000 MG in SODIUM CHLORIDE 0.9% 100 ML IV SCH ×3 (08:11→21:59)
[2019-05-11] MEDS ORDERED: cefTRIAXone 1,000 MG VIAL IV SCH (08:13)
[2019-05-11] MEDS: cefTRIAXone 1,000 MG in SYRINGE 1 EACH IV SCH ×2 (08:18→21:58)
[2019-05-11] MEDS ORDERED: LIDOCAINE 2% VISCOUS 100 ML BOTTLE ONE (08:55)
[2019-05-11] MEDS: NYSTATIN 500,000 UNIT/5 ML UDCUP SWISH/SWAL SCH ×4 (10:04→23:15)
[2019-05-11] MEDS: FUROSEMIDE 20 MG TABLET PO SCH (10:05)
[2019-05-11] MEDS: amLODIPine 5 MG TABLET PO SCH (10:05)
[2019-05-11] MEDS: ACETAMINOPHEN 325 MG TABLET PO PRN ×2 (10:05→15:07)
[2019-05-11] MEDS: SERTRALINE 25 MG TABLET PO SCH (10:05)
[2019-05-11] MEDS: ASPIRIN CHEW 81 MG TABLET PO SCH (10:06)
[2019-05-11] MEDS: DOCUSATE SODIUM 100 MG CAPSULE PO SCH ×2 (10:06→21:58)
[2019-05-11] MEDS: PANTOPRAZOLE 40 MG TABLET PO SCH (10:06)
[2019-05-11] MEDS: POTASSIUM CHLORIDE 20 MEQ TABLET PO SCH (10:06)
[2019-05-11] MEDS: METOPROLOL TARTRATE 50 MG TABLET PO SCH ×2 (10:06→23:14)
[2019-05-11] MEDS: BRIMONIDINE 0.15% OPH SOLN 1 DROP/DROPS BOTTLE LEFT EYE SCH ×2 (10:07→22:00)
[2019-05-11] MEDS: LOSARTAN 50 MG TABLET PO SCH (10:07)
[2019-05-11] MEDS: AMIODARONE 200 MG TABLET PO SCH (10:07)
[2019-05-11] MEDS: prednisoLONE ACETATE 1% OPH SUSP 5 ML BOTTLE LEFT EYE SCH ×2 (10:08→22:00)
[2019-05-11] MEDS: NYSTATIN POWDER 15 GM BOTTLE TOP SCH ×3 (10:08→23:15)
[2019-05-11] MEDS: POLYETHYLENE GLYCOL POWDER 17 GM PACK PO SCH (10:27)
[2019-05-11] MEDS: ONDANSETRON 4 MG/2 ML VIAL IV PRN (14:10)
[2019-05-11] MEDS: LORazepam 2 MG/1 ML VIAL IV PRN (15:07)
[2019-05-11] MEDS: TAMSULOSIN 0.4 MG CAPSULE PO SCH (21:58)
[2019-05-11] MEDS: ROSUVASTATIN 20 MG TABLET PO SCH (21:58)
[2019-05-11] MEDS: diphenhydrAMINE CAP 25 MG CAPSULE PO PRN (21:58)
[2019-05-12] MEDS: ALBUTEROL/IPRATROPIUM 3 ML NEB RESP TX SCH ×4 (00:45→19:22)
[2019-05-12] MEDS: ACETAMINOPHEN 325 MG TABLET PO PRN (01:35)
[2019-05-12] MEDS: LORazepam 2 MG/1 ML VIAL IV PRN ×2 (01:36→21:44)
[2019-05-12] MEDS: LEVOTHYROXINE 88 MCG TABLET PO SCH (06:51)
[2019-05-12] MEDS: MEROPENEM 1,000 MG in SODIUM CHLORIDE 0.9% 100 ML IV SCH ×3 (06:51→22:05)
[2019-05-12 07:57] LABS: Basophils % 0.1 % (0.0-0.8); Eosinophils # 2.9 10*3/uL (0.0-0.87); Eosinophils % 22.1 % (0.00-10.9); Hematocrit 28.8 VOL% (42.0-52.0); Hemoglobin 9.7 GM/DL (14.0-18.0); Immature Granulocytes % 0.7 %; Immature Granulocytes Absolute 0.09 #; Lymphocytes # 0.5 10*3/uL (1.4-4.0); Lymphocytes % 3.4 % (21.2-54.2); Mean Corpuscular HGB Conc 33.7 GM/DL (32-36); Mean Platelet Volume 11.2 FL (9.6-12.0); Monocytes % 4.7 % (1.7-12.7); Platelet Count 197 T/CUMM (130-400); Red Cell Distribution Width 14.9 % (9.3-17.3); White Blood Count 13.2 T/CUMM (4-12)
[2019-05-12] MEDS: METOCLOPRAMIDE 10 MG/2 ML VIAL IV SCH ×3 (08:13→18:43)
[2019-05-12 08:17] LABS: Eosinophils 27 % (0-10); Lymphocytes 3 % (20-55); Platelet Estimate Normal; Segmented Neutrophils 68 % (50-85); Total Cells Counted 100
[2019-05-12] MEDS: BRIMONIDINE 0.15% OPH SOLN 1 DROP/DROPS BOTTLE LEFT EYE SCH ×2 (08:17→22:00)
[2019-05-12 08:19] LABS: Anisocytosis 1+
[2019-05-12] MEDS: AMIODARONE 200 MG TABLET PO SCH (08:23)
[2019-05-12] MEDS: PANTOPRAZOLE 40 MG TABLET PO SCH (08:24)
[2019-05-12] MEDS: amLODIPine 5 MG TABLET PO SCH (08:24)
[2019-05-12] MEDS: FUROSEMIDE 20 MG TABLET PO SCH (08:24)
[2019-05-12] MEDS: POLYETHYLENE GLYCOL POWDER 17 GM PACK PO SCH (08:24)
[2019-05-12] MEDS: METOPROLOL TARTRATE 50 MG TABLET PO SCH ×2 (08:25→22:00)
[2019-05-12] MEDS: LOSARTAN 50 MG TABLET PO SCH (08:25)
[2019-05-12] MEDS: ASPIRIN CHEW 81 MG TABLET PO SCH (08:25)
[2019-05-12] MEDS: SERTRALINE 25 MG TABLET PO SCH (08:25)
[2019-05-12] MEDS: NYSTATIN 500,000 UNIT/5 ML UDCUP SWISH/SWAL SCH ×4 (08:26→22:00)
[2019-05-12] MEDS: cefTRIAXone 1,000 MG in SYRINGE 1 EACH IV SCH ×2 (08:34→21:45)
[2019-05-12] MEDS: POTASSIUM CHLORIDE 20 MEQ TABLET PO SCH (10:27)
[2019-05-12] MEDS: DOCUSATE SODIUM 100 MG/10 ML UDCUP NG SCH ×2 (10:41→21:43)
[2019-05-12] MEDS: HYDROcod/ACETAMIN 7.5-325 MG/15 ML UDCUP PO PRN ×3 (10:41→18:45)
[2019-05-12] MEDS: prednisoLONE ACETATE 1% OPH SUSP 5 ML BOTTLE LEFT EYE SCH ×2 (12:11→22:01)
[2019-05-12] MEDS: NYSTATIN POWDER 15 GM BOTTLE TOP SCH ×3 (12:12→22:01)
[2019-05-12] MEDS ORDERED: KETOROLAC 15 MG/1 ML VIAL IV ONE (15:12)
[2019-05-12] MEDS: ROSUVASTATIN 20 MG TABLET PO SCH (21:44)
[2019-05-12] MEDS: TAMSULOSIN 0.4 MG CAPSULE PO SCH (21:44)
[2019-05-13] MEDS: HYDROcod/ACETAMIN 7.5-325 MG/15 ML UDCUP PO PRN ×5 (01:51→22:51)
[2019-05-13] MEDS: ALBUTEROL/IPRATROPIUM 3 ML NEB RESP TX SCH ×4 (02:05→19:37)
[2019-05-13 05:35] LABS: Basophils % 0.1 % (0.0-0.8); Eosinophils # 3.9 10*3/uL (0.0-0.87); Eosinophils % 31.5 % (0.00-10.9); Hematocrit 27.1 VOL% (42.0-52.0); Hemoglobin 8.8 GM/DL (14.0-18.0); Immature Granulocytes % 0.6 %; Immature Granulocytes Absolute 0.07 #; Lymphocytes # 0.4 10*3/uL (1.4-4.0); Mean Corpuscular HGB Conc 32.5 GM/DL (32-36); Mean Corpuscular Volume 90.3 FL (87-102); Mean Platelet Volume 10.9 FL (9.6-12.0); Monocytes % 5.9 % (1.7-12.7); Neutrophils % 58.9 % (38.7-73.9); Platelet Count 177 T/CUMM (130-400); Red Cell Distribution Width 14.9 % (9.3-17.3); White Blood Count 12.4 T/CUMM (4-12)
[2019-05-13 06:03] LABS: Calcium 7.5 MG/DL (8.5-10.1); Osmolality,Calculated 274.1 MOS/KG (273-304)
[2019-05-13 06:11] LABS: Eosinophils 32 % (0-10); Hypochromasia 1+; Lymphocytes 1 % (20-55); Segmented Neutrophils 64 % (50-85); Total Cells Counted 100
[2019-05-13 06:12] LABS: Microcytosis 1+; Platelet Estimate Adequate
[2019-05-13] MEDS: LEVOTHYROXINE 88 MCG TABLET PO SCH (06:25)
[2019-05-13] MEDS: MEROPENEM 1,000 MG in SODIUM CHLORIDE 0.9% 100 ML IV SCH ×2 (06:25→14:50)
[2019-05-13] MEDS: PANTOPRAZOLE 40 MG TABLET PO SCH ×2 (09:12→09:25)
[2019-05-13] MEDS: cefTRIAXone 1,000 MG in SYRINGE 1 EACH IV SCH ×2 (09:21→22:31)
[2019-05-13] MEDS: METOCLOPRAMIDE 10 MG/2 ML VIAL IV SCH ×3 (09:23→16:37)
[2019-05-13] MEDS: POLYETHYLENE GLYCOL POWDER 17 GM PACK PO SCH (09:23)
[2019-05-13] MEDS: AMIODARONE 200 MG TABLET PO SCH (09:24)
[2019-05-13] MEDS: DOCUSATE SODIUM 100 MG/10 ML UDCUP NG SCH ×2 (09:24→22:29)
[2019-05-13] MEDS: METOPROLOL TARTRATE 50 MG TABLET PO SCH ×2 (09:25→22:30)
[2019-05-13] MEDS: POTASSIUM CHLORIDE 20 MEQ TABLET PO SCH (09:25)
[2019-05-13] MEDS: FUROSEMIDE 20 MG TABLET PO SCH (09:25)
[2019-05-13] MEDS: SERTRALINE 25 MG TABLET PO SCH (09:25)
[2019-05-13] MEDS: ASPIRIN CHEW 81 MG TABLET PO SCH (09:26)
[2019-05-13] MEDS: BRIMONIDINE 0.15% OPH SOLN 1 DROP/DROPS BOTTLE LEFT EYE SCH ×2 (09:27→22:29)
[2019-05-13] MEDS: NYSTATIN POWDER 15 GM BOTTLE TOP SCH ×3 (09:28→22:30)
[2019-05-13] MEDS: NYSTATIN 500,000 UNIT/5 ML UDCUP SWISH/SWAL SCH ×4 (09:28→22:48)
[2019-05-13] MEDS: prednisoLONE ACETATE 1% OPH SUSP 5 ML BOTTLE LEFT EYE SCH ×2 (09:29→22:31)
[2019-05-13] MEDS: LOSARTAN 50 MG TABLET PO SCH (09:46)
[2019-05-13] MEDS: amLODIPine 5 MG TABLET PO SCH (09:46)
[2019-05-13] MEDS: LORazepam 2 MG/1 ML VIAL IV PRN (16:37)
[2019-05-13] MEDS: BUDESONIDE 0.5 MG/2 ML NEB RESP TX SCH (19:37)
[2019-05-13] MEDS: ARFORMOTEROL 15 MCG/2 ML NEB RESP TX SCH (19:37)
[2019-05-13] MEDS: ROSUVASTATIN 20 MG TABLET PO SCH (22:30)
[2019-05-13] MEDS: TAMSULOSIN 0.4 MG CAPSULE PO SCH (22:30)
[2019-05-14] MEDS: ALBUTEROL/IPRATROPIUM 3 ML NEB RESP TX SCH ×4 (00:26→20:00)
[2019-05-14] MEDS: MEROPENEM 1,000 MG in SODIUM CHLORIDE 0.9% 100 ML IV SCH ×3 (01:24→17:34)
[2019-05-14] MEDS: LORazepam 2 MG/1 ML VIAL IV PRN ×2 (01:38→22:45)
[2019-05-14 06:11] LABS: Basophils % 0.2 % (0.0-0.8); Eosinophils # 4.9 10*3/uL (0.0-0.87); Eosinophils % 32.7 % (0.00-10.9); Hemoglobin 9.5 GM/DL (14.0-18.0); Immature Granulocytes % 0.4 %; Immature Granulocytes Absolute 0.06 #; Lymphocytes # 0.4 10*3/uL (1.4-4.0); Lymphocytes % 2.7 % (21.2-54.2); Mean Corpuscular HGB Conc 32.8 GM/DL (32-36); Mean Corpuscular Volume 89.5 FL (87-102); Mean Platelet Volume 10.9 FL (9.6-12.0); Monocytes % 5.4 % (1.7-12.7); Neutrophils % 58.6 % (38.7-73.9); Platelet Count 192 T/CUMM (130-400); Red Blood Count 3.24 MC/CUMM (3.8-5.5); Red Cell Distribution Width 14.8 % (9.3-17.3); White Blood Count 15.1 T/CUMM (4-12)
[2019-05-14 06:30] LABS: Calcium 7.4 MG/DL (8.5-10.1); Osmolality,Calculated 266.7 MOS/KG (273-304)
[2019-05-14 06:31] LABS: Calcium 7.6 MG/DL (8.5-10.1); Osmolality,Calculated 272.2 MOS/KG (273-304)
[2019-05-14] MEDS: LEVOTHYROXINE 88 MCG TABLET PO SCH (06:34)
[2019-05-14] MEDS: HYDROcod/ACETAMIN 7.5-325 MG/15 ML UDCUP PO PRN ×4 (06:35→20:59)
[2019-05-14 06:48] LABS: Anisocytosis 1+; Band Neutrophils 4 % (0-10); Eosinophils 24 % (0-10); Platelet Estimate Adequate; Segmented Neutrophils 71 % (50-85); Total Cells Counted 100
[2019-05-14] MEDS: BUDESONIDE 0.5 MG/2 ML NEB RESP TX SCH ×2 (07:10→20:00)
[2019-05-14] MEDS: ARFORMOTEROL 15 MCG/2 ML NEB RESP TX SCH ×2 (07:10→20:00)
[2019-05-14] MEDS: LOSARTAN 50 MG TABLET PO SCH (09:43)
[2019-05-14] MEDS: DOCUSATE SODIUM 100 MG/10 ML UDCUP NG SCH ×2 (09:43→20:54)
[2019-05-14] MEDS: OMEPRAZOLE ODT 20 MG TABLET PER TUBE SCH (09:43)
[2019-05-14] MEDS: amLODIPine 5 MG TABLET PO SCH (09:43)
[2019-05-14] MEDS: POTASSIUM CHLORIDE 20 MEQ TABLET PO SCH (09:44)
[2019-05-14] MEDS: SERTRALINE 25 MG TABLET PO SCH (09:44)
[2019-05-14] MEDS: ASPIRIN CHEW 81 MG TABLET PO SCH (09:44)
[2019-05-14] MEDS: METOPROLOL TARTRATE 50 MG TABLET PO SCH ×2 (09:44→20:54)
[2019-05-14] MEDS: FUROSEMIDE 20 MG TABLET PO SCH (09:44)
[2019-05-14] MEDS: AMIODARONE 200 MG TABLET PO SCH (09:45)
[2019-05-14] MEDS: POLYETHYLENE GLYCOL POWDER 17 GM PACK PO SCH (09:45)
[2019-05-14] MEDS: METOCLOPRAMIDE 10 MG/2 ML VIAL IV SCH ×3 (09:46→16:07)
[2019-05-14] MEDS: BRIMONIDINE 0.15% OPH SOLN 1 DROP/DROPS BOTTLE LEFT EYE SCH ×2 (09:47→20:54)
[2019-05-14] MEDS: prednisoLONE ACETATE 1% OPH SUSP 5 ML BOTTLE LEFT EYE SCH ×2 (09:49→20:55)
[2019-05-14] MEDS: NYSTATIN POWDER 15 GM BOTTLE TOP SCH ×3 (09:49→20:55)
[2019-05-14] MEDS: NYSTATIN 500,000 UNIT/5 ML UDCUP SWISH/SWAL SCH ×4 (09:49→20:55)
[2019-05-14] MEDS: cefTRIAXone 1,000 MG in SYRINGE 1 EACH IV SCH ×2 (09:49→21:22)
[2019-05-14] MEDS: FUROSEMIDE 20 MG/2 ML VIAL IV SCH ×2 (13:44→17:34)
[2019-05-14] MEDS: SODIUM CHLORIDE 3% 4 ML NEB RESP TX SCH (20:00)
[2019-05-14] MEDS: ROSUVASTATIN 20 MG TABLET PO SCH (20:54)
[2019-05-14] MEDS: TAMSULOSIN 0.4 MG CAPSULE PO SCH (20:54)
[2019-05-15] MEDS: ALBUTEROL/IPRATROPIUM 3 ML NEB RESP TX SCH ×4 (00:12→20:00)
[2019-05-15] MEDS: MEROPENEM 1,000 MG in SODIUM CHLORIDE 0.9% 100 ML IV SCH ×2 (00:37→11:29)
[2019-05-15] MEDS: ALBUTEROL/IPRATROPIUM 3 ML NEB RESP TX PRN ×2 (03:06→06:23)
[2019-05-15 05:08] LABS: Basophils % 0.2 % (0.0-0.8); Eosinophils # 3.6 10*3/uL (0.0-0.87); Eosinophils % 32.7 % (0.00-10.9); Immature Granulocytes % 0.5 %; Immature Granulocytes Absolute 0.05 #; Lymphocytes # 0.4 10*3/uL (1.4-4.0); Lymphocytes % 3.5 % (21.2-54.2); Mean Corpuscular Volume 91.2 FL (87-102); Mean Platelet Volume 10.5 FL (9.6-12.0); Monocytes % 6.3 % (1.7-12.7); Neutrophils % 56.8 % (38.7-73.9); Platelet Count 168 T/CUMM (130-400); Red Blood Count 2.74 MC/CUMM (3.8-5.5); Red Cell Distribution Width 14.7 % (9.3-17.3)
[2019-05-15 05:36] LABS: Calcium 7.3 MG/DL (8.5-10.1); Osmolality,Calculated 272.2 MOS/KG (273-304)
[2019-05-15 06:16] LABS: Anisocytosis 1+; Band Neutrophils 2 % (0-10); Eosinophils 33 % (0-10); Lymphocytes 3 % (20-55); Platelet Estimate Adequate; Segmented Neutrophils 58 % (50-85); Target Cells Few; Total Cells Counted 100
[2019-05-15] MEDS: SODIUM CHLORIDE 3% 4 ML NEB RESP TX SCH ×2 (08:05→20:00)
[2019-05-15] MEDS: ARFORMOTEROL 15 MCG/2 ML NEB RESP TX SCH ×2 (08:05→20:00)
[2019-05-15] MEDS: BUDESONIDE 0.5 MG/2 ML NEB RESP TX SCH ×2 (08:05→20:00)
[2019-05-15] MEDS: NYSTATIN POWDER 15 GM BOTTLE TOP SCH ×3 (09:16→20:35)
[2019-05-15] MEDS: NYSTATIN 500,000 UNIT/5 ML UDCUP SWISH/SWAL SCH ×4 (09:16→20:35)
[2019-05-15 09:49] LABS: Allen Test Positive
[2019-05-15 09:51] LABS: ABG Base Excess 9.7 MMOL/L (-2.5-2.5); ABG HCO3 33.6 MMOL/L (20-26); ABG Oxygen Saturation 96.8 % (95-100); ABG PCO2 43.2 MM HG (35-48); ABG PH 7.509 (7.35-7.45); ABG PO2 86.4 MM HG (80-95); ABG TCO2 34.9 MMOL/L (23-27)
[2019-05-15] MEDS: DOCUSATE SODIUM 100 MG/10 ML UDCUP NG SCH ×2 (09:52→20:33)
[2019-05-15] MEDS: cefTRIAXone 1,000 MG in SYRINGE 1 EACH IV SCH ×2 (09:52→20:34)
[2019-05-15] MEDS: HYDROcod/ACETAMIN 7.5-325 MG/15 ML UDCUP PO PRN ×3 (09:52→20:33)
[2019-05-15] MEDS: LEVOTHYROXINE 88 MCG TABLET PO SCH (09:53)
[2019-05-15] MEDS: AMIODARONE 200 MG TABLET PO SCH (09:53)
[2019-05-15] MEDS: POLYETHYLENE GLYCOL POWDER 17 GM PACK PO SCH (09:54)
[2019-05-15] MEDS: ASPIRIN CHEW 81 MG TABLET PO SCH (09:54)
[2019-05-15] MEDS: amLODIPine 5 MG TABLET PO SCH (09:54)
[2019-05-15] MEDS: LOSARTAN 50 MG TABLET PO SCH (09:54)
[2019-05-15] MEDS: BRIMONIDINE 0.15% OPH SOLN 1 DROP/DROPS BOTTLE LEFT EYE SCH ×2 (09:54→20:35)
[2019-05-15] MEDS: METOPROLOL TARTRATE 50 MG TABLET PO SCH ×2 (09:55→20:34)
[2019-05-15] MEDS: METOCLOPRAMIDE 10 MG/2 ML VIAL IV SCH ×3 (09:55→18:33)
[2019-05-15] MEDS: POTASSIUM CHLORIDE 20 MEQ TABLET PO SCH (09:55)
[2019-05-15] MEDS: FUROSEMIDE 20 MG/2 ML VIAL IV SCH ×2 (09:55→18:33)
[2019-05-15] MEDS: prednisoLONE ACETATE 1% OPH SUSP 5 ML BOTTLE LEFT EYE SCH ×2 (09:55→20:34)
[2019-05-15] MEDS: SERTRALINE 25 MG TABLET PO SCH (09:55)
[2019-05-15] MEDS: OMEPRAZOLE ODT 20 MG TABLET PER TUBE SCH (09:55)
[2019-05-15] MEDS: predniSONE 20 MG TABLET PO SCH (14:55)
[2019-05-15] MEDS: ONDANSETRON 4 MG/2 ML VIAL IV PRN (20:00)
[2019-05-15] MEDS: ROSUVASTATIN 20 MG TABLET PO SCH (20:34)
[2019-05-15] MEDS: TAMSULOSIN 0.4 MG CAPSULE PO SCH (20:34)
[2019-05-15] MEDS: LORazepam 2 MG/1 ML VIAL IV PRN (22:08)
[2019-05-16 05:59] LABS: Eosinophils # 0.1 10*3/uL (0.0-0.87); Eosinophils % 1.6 % (0.00-10.9); Hematocrit 24.2 VOL% (42.0-52.0); Hemoglobin 7.8 GM/DL (14.0-18.0); Immature Granulocytes Absolute 0.07 #; Lymphocytes # 0.4 10*3/uL (1.4-4.0); Mean Corpuscular HGB Conc 32.2 GM/DL (32-36); Mean Corpuscular Volume 89.3 FL (87-102); Mean Platelet Volume 11.1 FL (9.6-12.0); Monocytes % 6.9 % (1.7-12.7); Neutrophils % 84.5 % (38.7-73.9); Platelet Count 171 T/CUMM (130-400); Red Blood Count 2.71 MC/CUMM (3.8-5.5); Red Cell Distribution Width 14.7 % (9.3-17.3); White Blood Count 6.8 T/CUMM (4-12)
[2019-05-16] MEDS: LEVOTHYROXINE 88 MCG TABLET PO SCH (06:07)
[2019-05-16 06:31] LABS: Calcium 7.4 MG/DL (8.5-10.1); Osmolality,Calculated 273.2 MOS/KG (273-304)
[2019-05-16 06:35] LABS: Calcium 7.5 MG/DL (8.5-10.1); Osmolality,Calculated 273.2 MOS/KG (273-304)
[2019-05-16] MEDS: BUDESONIDE 0.5 MG/2 ML NEB RESP TX SCH ×2 (07:45→19:22)
[2019-05-16] MEDS: ARFORMOTEROL 15 MCG/2 ML NEB RESP TX SCH ×2 (07:45→19:22)
[2019-05-16] MEDS: SODIUM CHLORIDE 3% 4 ML NEB RESP TX SCH ×2 (07:45→19:22)
[2019-05-16] MEDS: METOPROLOL TARTRATE 50 MG TABLET PO SCH ×2 (09:47→22:21)
[2019-05-16] MEDS: cefTRIAXone 1,000 MG in SYRINGE 1 EACH IV SCH ×2 (09:47→22:21)
[2019-05-16] MEDS: POLYETHYLENE GLYCOL POWDER 17 GM PACK PO SCH (09:47)
[2019-05-16] MEDS: DOCUSATE SODIUM 100 MG/10 ML UDCUP NG SCH ×2 (09:47→22:20)
[2019-05-16] MEDS: amLODIPine 5 MG TABLET PO SCH (09:47)
[2019-05-16] MEDS: AMIODARONE 200 MG TABLET PO SCH (09:47)
[2019-05-16] MEDS: SERTRALINE 25 MG TABLET PO SCH (09:48)
[2019-05-16] MEDS: predniSONE 20 MG TABLET PO SCH (09:48)
[2019-05-16] MEDS: LOSARTAN 50 MG TABLET PO SCH (09:49)
[2019-05-16] MEDS: ASPIRIN CHEW 81 MG TABLET PO SCH (09:49)
[2019-05-16] MEDS: POTASSIUM CHLORIDE 20 MEQ TABLET PO SCH (09:50)
[2019-05-16] MEDS: METOCLOPRAMIDE 10 MG/2 ML VIAL IV SCH ×3 (09:52→16:25)
[2019-05-16] MEDS: NYSTATIN 500,000 UNIT/5 ML UDCUP SWISH/SWAL SCH ×4 (10:20→22:20)
[2019-05-16] MEDS: NYSTATIN POWDER 15 GM BOTTLE TOP SCH ×3 (10:20→22:20)
[2019-05-16] MEDS: prednisoLONE ACETATE 1% OPH SUSP 5 ML BOTTLE LEFT EYE SCH ×2 (10:20→22:20)
[2019-05-16] MEDS: BRIMONIDINE 0.15% OPH SOLN 1 DROP/DROPS BOTTLE LEFT EYE SCH ×2 (10:20→22:20)
[2019-05-16] MEDS: OMEPRAZOLE ODT 20 MG TABLET PER TUBE SCH (10:23)
[2019-05-16] MEDS: ONDANSETRON 4 MG/2 ML VIAL IV PRN (13:09)
[2019-05-16] MEDS: HYDROcod/ACETAMIN 7.5-325 MG/15 ML UDCUP PO PRN ×3 (13:12→23:56)
[2019-05-16] MEDS: ACETAMINOPHEN 325 MG TABLET PO PRN (15:35)
[2019-05-16] MEDS ORDERED: ALPRAZolam 0.25 MG TABLET PO PRN (20:00)
[2019-05-16] MEDS: ROSUVASTATIN 20 MG TABLET PO SCH (22:20)
[2019-05-16] MEDS: TAMSULOSIN 0.4 MG CAPSULE PO SCH (22:20)
[2019-05-17] MEDS: HYDROcod/ACETAMIN 7.5-325 MG/15 ML UDCUP PO PRN (04:08)
[2019-05-17 06:22] LABS: Basophils % 0.1 % (0.0-0.8); Eosinophils # 0.9 10*3/uL (0.0-0.87); Eosinophils % 11.3 % (0.00-10.9); Hematocrit 24.5 VOL% (42.0-52.0); Hemoglobin 7.9 GM/DL (14.0-18.0); Immature Granulocytes % 1.2 %; Lymphocytes # 0.6 10*3/uL (1.4-4.0); Lymphocytes % 7.3 % (21.2-54.2); Mean Corpuscular HGB Conc 32.2 GM/DL (32-36); Mean Corpuscular Volume 89.7 FL (87-102); Mean Platelet Volume 10.5 FL (9.6-12.0); Monocytes % 8.1 % (1.7-12.7); Platelet Count 191 T/CUMM (130-400); Red Blood Count 2.73 MC/CUMM (3.8-5.5); Red Cell Distribution Width 14.8 % (9.3-17.3); White Blood Count 8.2 T/CUMM (4-12)
[2019-05-17 06:46] LABS: Eosinophils 8 % (0-10); Lymphocytes 4 % (20-55); Platelet Estimate Adequate; Segmented Neutrophils 80 % (50-85); Total Cells Counted 100
[2019-05-17 06:47] LABS: Hypochromasia 1+
[2019-05-17 06:54] LABS: Calcium 7.7 MG/DL (8.5-10.1); Osmolality,Calculated 271.2 MOS/KG (273-304)
[2019-05-17] MEDS: METOCLOPRAMIDE 10 MG/2 ML VIAL IV SCH ×3 (07:32→16:03)
[2019-05-17] MEDS: LEVOTHYROXINE 88 MCG TABLET PO SCH (07:34)
[2019-05-17] MEDS: SODIUM CHLORIDE 3% 4 ML NEB RESP TX SCH ×2 (08:08→19:08)
[2019-05-17] MEDS: BUDESONIDE 0.5 MG/2 ML NEB RESP TX SCH ×2 (08:08→19:08)
[2019-05-17] MEDS: ARFORMOTEROL 15 MCG/2 ML NEB RESP TX SCH ×2 (08:08→19:08)
[2019-05-17] MEDS: amLODIPine 5 MG TABLET PO SCH (09:37)
[2019-05-17] MEDS: LOSARTAN 50 MG TABLET PO SCH (09:37)
[2019-05-17] MEDS: SERTRALINE 25 MG TABLET PO SCH (09:37)
[2019-05-17] MEDS: predniSONE 20 MG TABLET PO SCH (09:37)
[2019-05-17] MEDS: oxyCODONE/ACETAMINOPHEN 5-325 MG TABLET PO PRN ×3 (09:37→22:15)
[2019-05-17] MEDS: AMIODARONE 200 MG TABLET PO SCH (09:38)
[2019-05-17] MEDS: METOPROLOL TARTRATE 50 MG TABLET PO SCH ×2 (09:38→22:16)
[2019-05-17] MEDS: ASPIRIN CHEW 81 MG TABLET PO SCH (09:38)
[2019-05-17] MEDS: OMEPRAZOLE ODT 20 MG TABLET PER TUBE SCH (09:38)
[2019-05-17] MEDS: POTASSIUM CHLORIDE 20 MEQ TABLET PO SCH (09:38)
[2019-05-17] MEDS: DOCUSATE SODIUM 100 MG/10 ML UDCUP NG SCH ×2 (09:38→22:16)
[2019-05-17] MEDS: NYSTATIN POWDER 15 GM BOTTLE TOP SCH ×3 (09:39→22:16)
[2019-05-17] MEDS: prednisoLONE ACETATE 1% OPH SUSP 5 ML BOTTLE LEFT EYE SCH ×2 (09:39→22:16)
[2019-05-17] MEDS: NYSTATIN 500,000 UNIT/5 ML UDCUP SWISH/SWAL SCH ×4 (09:39→22:16)
[2019-05-17] MEDS: BRIMONIDINE 0.15% OPH SOLN 1 DROP/DROPS BOTTLE LEFT EYE SCH ×2 (09:39→22:16)
[2019-05-17] MEDS: POLYETHYLENE GLYCOL POWDER 17 GM PACK PO SCH (09:39)
[2019-05-17] MEDS: FUROSEMIDE 20 MG TABLET PO SCH (09:40)
[2019-05-17] MEDS: cefTRIAXone 1,000 MG in SYRINGE 1 EACH IV SCH ×2 (09:54→22:14)
[2019-05-17] MEDS ORDERED: ALPRAZolam 0.25 MG TABLET PO ONE (11:09)
[2019-05-17] MEDS: ROSUVASTATIN 20 MG TABLET PO SCH (22:14)
[2019-05-17] MEDS: TAMSULOSIN 0.4 MG CAPSULE PO SCH (22:14)
[2019-05-18] MEDS: oxyCODONE/ACETAMINOPHEN 5-325 MG TABLET PO PRN ×4 (04:22→17:16)
[2019-05-18] MEDS: ALBUTEROL/IPRATROPIUM 3 ML NEB RESP TX PRN (05:15)
[2019-05-18] MEDS: LEVOTHYROXINE 88 MCG TABLET PO SCH (07:05)
[2019-05-18] MEDS: SODIUM CHLORIDE 3% 4 ML NEB RESP TX SCH (07:06)
[2019-05-18] MEDS: BUDESONIDE 0.5 MG/2 ML NEB RESP TX SCH (07:06)
[2019-05-18] MEDS: ARFORMOTEROL 15 MCG/2 ML NEB RESP TX SCH (07:06)
[2019-05-18 07:38] LABS: Basophils % 0.1 % (0.0-0.8); Eosinophils # 0.4 10*3/uL (0.0-0.87); Eosinophils % 2.9 % (0.00-10.9); Hematocrit 26.8 VOL% (42.0-52.0); Hemoglobin 8.8 GM/DL (14.0-18.0); Immature Granulocytes % 0.9 %; Immature Granulocytes Absolute 0.13 #; Lymphocytes # 0.8 10*3/uL (1.4-4.0); Lymphocytes % 5.1 % (21.2-54.2); Mean Corpuscular HGB Conc 32.8 GM/DL (32-36); Mean Corpuscular Volume 89.6 FL (87-102); Mean Platelet Volume 9.9 FL (9.6-12.0); Platelet Count 227 T/CUMM (130-400); Red Blood Count 2.99 MC/CUMM (3.8-5.5); Red Cell Distribution Width 14.9 % (9.3-17.3); White Blood Count 14.6 T/CUMM (4-12)
[2019-05-18 07:58] LABS: Calcium 8.5 MG/DL (8.5-10.1); Osmolality,Calculated 267.7 MOS/KG (273-304)
[2019-05-18] MEDS: METOCLOPRAMIDE 10 MG/2 ML VIAL IV SCH ×3 (08:47→17:11)
[2019-05-18] MEDS: cefTRIAXone 1,000 MG in SYRINGE 1 EACH IV SCH (08:49)
[2019-05-18] MEDS: prednisoLONE ACETATE 1% OPH SUSP 5 ML BOTTLE LEFT EYE SCH (08:55)
[2019-05-18] MEDS: NYSTATIN 500,000 UNIT/5 ML UDCUP SWISH/SWAL SCH ×3 (08:55→16:56)
[2019-05-18] MEDS: AMIODARONE 200 MG TABLET PO SCH (08:56)
[2019-05-18] MEDS: OMEPRAZOLE ODT 20 MG TABLET PER TUBE SCH (08:56)
[2019-05-18] MEDS: SERTRALINE 25 MG TABLET PO SCH (08:56)
[2019-05-18] MEDS: NYSTATIN POWDER 15 GM BOTTLE TOP SCH ×2 (08:56→16:56)
[2019-05-18] MEDS: BRIMONIDINE 0.15% OPH SOLN 1 DROP/DROPS BOTTLE LEFT EYE SCH (08:56)
[2019-05-18] MEDS: LOSARTAN 50 MG TABLET PO SCH (08:57)
[2019-05-18] MEDS: POTASSIUM CHLORIDE 20 MEQ TABLET PO SCH (08:57)
[2019-05-18] MEDS: DOCUSATE SODIUM 100 MG/10 ML UDCUP NG SCH (08:58)
[2019-05-18] MEDS: ASPIRIN CHEW 81 MG TABLET PO SCH (08:58)
[2019-05-18] MEDS: FUROSEMIDE 20 MG TABLET PO SCH (08:58)
[2019-05-18] MEDS: POLYETHYLENE GLYCOL POWDER 17 GM PACK PO SCH (08:58)
[2019-05-18] MEDS: METOPROLOL TARTRATE 50 MG TABLET PO SCH (08:58)
[2019-05-18] MEDS: amLODIPine 5 MG TABLET PO SCH (08:58)
[2019-05-18] MEDS: predniSONE 20 MG TABLET PO SCH (08:58)
[2019-05-18 15:58] VITALS: BP 144/63
== END 2019-05-18 18:26 | DRG 329 ==
LOC: EDUNIT# → N.ED 23:06 → N.EDINP 23:47 → N.3E 04-16 02:47 → N.ICU 04-16 15:17 → N.3E 04-24 15:42
PROVIDERS: ADMIT Student in an Organized Health Care Education/Training Program; ATTEND Student in an Organized Health Care Education/Training Program